=== PATIENT | male | born 1955 | race Caucasian/White ===

== ENCOUNTER 2022-01-24 14:57 | Outpatient (CLI) | payer MEDICARE, SELFPAY ==
--- OUTSIDE RECORDS SUMMARY | 2022-01-24 14:58 | XMS_ITS | Encounter Summary ---
:1955 Author Organization [facility] Address [address] [facility] [place] [address] Care Team Providers Name Role Phone Marcelo Smith Primary Care Provider Reason for Visit Reason Comments Pain possible tailor's bunion Encounter Details Date Type Department Care Team Description 02/19/2018 Office Visit [facility] [place], Bone spur of left Clinic [place] Lyle[place]ICIA foot (Primary Dx) [address] [address] [place], [place] [phone] [id number] (Wo rk) Social History Tobacco Use Types Packs/Day Years Used Date Smoking Tobacco: Never Smokeless Tobacco: Never Tobacco Cessation: Counseling Given: No Sex Assigned at Date Recorded Not on file documented as of this encounter Last Filed Vital Signs Vital Sign Reading Time Taken Comments Blood Pressure 116/70 02/19/2018 8:15 AM PULPWOOD CUTTER Pulse - - Temperature - - Respiratory Rate - - Oxygen Saturation - - Inhaled Oxygen Concentration - - Weight 86.6 kg (191 lb) 02/19/2018 8:15 AM PULPWOOD CUTTER Height 165.1 cm (5' 5) 02/19/2018 8:15 AM PULPWOOD CUTTER Body Mass Index 31.78 02/19/2018 8:15 AM PULPWOOD CUTTER documented in this encounter Patient Instructions Patient InstructionsValerio Davis - 02/19/2018 8:15 AM CST Images from the original note were not included. Thank you for choosing [facility]! DR. DEL C[facility]S [facility]IN[facility] LOCATIONS: THURSDAY - Thursday - [employer] [address] [facility] [address] [place] [address] [place], [place] [id number] THURSDAY AM - [place] THURSDAY PM - [facility] [address] [place] [address] [place], [place] [id number] THURSDAY AM - [place] SET UP SURGERY: [phone] [address] APPOINTMENTS: [phone] [place] [address] BILLING QUESTIONS: [phone] FAX NUMBER: [phone] Follow Up: as needed ENGLISH THERAPY Many aches and pains throughout the foot and ankle can be helped with many simple treatments. This is usually described as ENGLISH Therapy. P - Protection - often times, inflammation/pain in the lower extremity is not able to improve simplybecause the areas involved are never allowed to rest. Every step we take can bother the problematic area. Protecting those areas is an important step in the healing process. This may involve a walking cast boot, a special insert/orthotic device, an ankle brace, or simply avoiding barefoot walking. R - Rest - in addition to protecting the foot/ankle, resting is an important, but often times difficult, treatment option. Getting off your feet when they bother you, and specifically avoiding activities that cause pain/discomfort, are very beneficial to prevent, and treat, foot/ankle pain. I - Ice - icing regularly can help to decrease inflammation and swelling in the foot, thus decreasing pain. Using an ice pack or a bag of frozen veggies works very well. Ice for 20 minutes multiple times per day as needed. Do not place the ice directly on the skin as this can cause tissue damage. C - Compression - using a compression wrap or an CANDELARIO wrap can help to decrease swelling, which can help to decrease pain. Wearing the wraps is generally not needed at night, but they should be worn on a regular basis when you are going to be on your feet for prolonged periods as gravity tends to pull fluids down to your feet/ankles. E - Elevation - elevating your lower extremities multiple times daily for 15-20 minutes can help to decrease swelling, which works well in decreasing pain levels. NSAID/Tylenol - Anti-inflammatories like Aleve or ibuprofen, and/or a pain medication, such as Tylenol, can help to improve pain levels and get the issue resolved sooner rather than later. Anyone with liver issues should be careful with Tylenol, and anyone with high blood pressure or heart, stomach orkidney issues should be careful with anti-inflammatories. Please ask if you have questions about these medications, including dosage. TOE COVERS/CAPS FYI: Body Mass Index (BMI) Many things can cause foot and ankle problems. Foot structure, activity level, foot mechanics and injuries are common causes of pain. One very important issue that often goes unmentioned, is body weight. Extra weight can cause increased stress on muscles, ligaments, bones and tendons. Sometimes just afew extra pounds is all it takes to put one over her/his threshold. Without reducing that stress, itcan be difficult to alleviate pain. Some people are uncomfortable addressing this issue, but we feelit is important for you to think about it. As Foot & Ankle specialists, our job is addressing the lower extremity problem and possible causes. Regarding extra body weight, we encourage patients to discuss diet and weight management plans with their primary care doctors. It is this team approach that gives you the best opportunity for pain relief and getting you back on your feet. WOOD CUTTER documented in this encounter Progress Notes Lyle Del Cid DPM - 02/19/2018 8:15 AM CST Foot & Ankle Surgery February 19, 2018 CC: foot pain I was asked to see Fermin Granados regarding the chief complaint by: Adam Lincoln PA-C HPI: Pt is a 63 year old male who presents with above complaint. Left foot pain x years. Points tolateral lefto forefoot. Has been obthersome for years, now hurts to have shoes/socks on. Lower back pain, goes down into my legs. Did pool therapy. Also states he has hip issues, needs to have a replacement. Pain 7/10 in foot every day, worse with shoes and walking. He has tried bigger shoes without sufficient improvement. He had xrays at an outside facility that indicated a bone spur on the lateral L 5th metatarsal. Those images are not available today. He also indicates pain can go out to the 5th toe. ROS: Pos for CC. The patient denies current nausea, vomiting, chills, fevers, belly pain, calf pain,chest pain or SOB. Complete remainder of ROS is otherwise neg. VITALS: Vitals: 02/19/18 0815 BP: 116/70 Weight: 191 lb (86.6 kg) Height: 5' 5 (1.651 m) PMH: Lumbosacral spine pathology. SXHX: No contributory left foot surgery noted MEDS: Current Outpatient Prescriptions Medication ??? ACIPHEX 20 MG OR TBEC ??? amLODIPine (NORVASC) 10 MG tablet ??? aspirin 81 MG tablet ??? benazepril (LOTENSIN) 40 MG tablet ??? carvedilol (COREG) 25 MG tablet ??? clopidogrel (PLAVIX) 75 MG tablet ??? co-enzyme Q-10 100 MG CAPS capsule ??? famotidine (PEPCID) 10 MG tablet ??? hydrochlorothiazide (HYDRODIURIL) 25 MG tablet ??? metFORMIN (GLUCOPHAGE) 500 MG tablet ??? Multiple Vitamins-Minerals (MULTI FOR HER) TABS ??? traMADol (ULTRAM) 50 MG tablet ??? zolpidem (AMBIEN) 10 MG tablet No current facility-administered medications for this visit. 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 Social History Social History ??? Marital status: Single Spouse name: N/A ??? Number of children: N/A ??? Years of education: N/A Occupational History ??? Not on file. Social History Main Topics ??? Smoking status: Never Smoker ??? Smokeless tobacco: Never Used ??? Alcohol use Not on file ??? Drug use: Not on file ??? Sexual activity: Not on file Other Topics Concern ??? Not on file Social History Narrative ??? No narrative on file EXAMINATION: Gen: No apparent distress Neuro: A&Ox3, no deficits Psych: Answering questions appropriately for age and situation with normal affect Head: NCAT Eye: Visual scanning without deficit Ear: Response to auditory stimuli wnl Lung: Non-labored breathing on RA noted Abd: NTND per patient report Lymph: Neg for pitting/non-pitting edema BLE Vasc: Pulses palpable, CFT minimally delayed Neuro: Light touch sensation intact to all sensory nerve distributions without paresthesias Derm: Neg for nodules, lesions or ulcerations MSK: Left lower extremity - palpable painful bone spur lateral L 5th metatarsal shaft/neck. Mild adductovarus 5th hammertoe but no specific pain in the 5th toe today Calf: Neg for redness, swelling or tenderness Assessment: 63 year old male with painful bone spur 5th metatarsal left lower extremity Plan: Discussed etiologies, anatomy and options 1. Left 5th metatarsal bone spur -comfortable accommodative shoe gear, particularly with wider toe box -discussed donut vs horseshoe padding options, to alleviate pressure on the bone spur -RICE/NSAID vs tylenol prn -discussed Sural neuritis as possible cause of pain that progresses to the 5th toe -toe cap/cover handout for toe protection -briefly discussed excision of bone spur if padding and shoe gear changes are insufficient. -lower back issues discussed, how they can be related to lower extremity pain,but I suspect this is more from a localized MSK issue, the spur. Follow up: prn or sooner with acute issues Patient's medical history was reviewed today Body mass index is 31.78 kg/(m^2). Weight management plan: Patient was referred to their PCP to discuss a diet and exercise plan. Lyle Del Cid DPM FACFAS FACFAOM Podiatric Foot & Ankle Surgeon [facility] [phone] WOOD CUTTER documented in this encounter Plan of Treatment Not on filedocumented as of this encounter Visit Diagnoses Diagnosis Bone spur of left foot - Primary documented in this encounter Care Teams Functional Tester Relationship Specialty Start Date End Date Marcelo Smith PCP - General Family Practice 02/19/[address] [address] documented as of this encounter
--- OUTSIDE RECORDS SUMMARY | 2022-01-24 14:58 | XMS_ITS | Clinical Summary ---
:1955 Author Organization [place] Address [address] [facility] [place] [address] Care Team Providers Name Role Phone Marcelo Smith Primary Care Provider Allergies No known active allergies Medications Medication Sig Dispensed Refills Start Date End Date Status ACIPHEX 20 MG OR TBEC 1 tab po qd. 30 2 11/04/2001 Active aspirin 81 MG tablet 0 Active co-enzyme Q-10 100 MG CAPS Twice A Day 0 Active capsule clopidogrel (PLAVIX) 75 MG Daily 0 04/13/2017 Active tablet carvedilol (COREG) 25 MG Twice A Day 0 10/05/2017 Active tablet amLODIPine (NORVASC) 10 MG Daily 0 10/19/2017 Active tablet benazepril (LOTENSIN) 40 Daily 0 10/05/2017 Active MG tablet famotidine (PEPCID) 10 MG Twice A Day 0 Active tablet hydrochlorothiazide Daily 0 10/05/2017 Active (HYDRODIURIL) 25 MG tablet metFORMIN (GLUCOPHAGE) 500 Twice A Day 0 10/05/2017 Active MG tablet Multiple Vitamins-Minerals Daily 0 Active (MULTI FOR HER) TABS traMADol (ULTRAM) 50 MG Every 6 Hours 0 10/20/2017 Active tablet as needed zolpidem (AMBIEN) 10 MG Bedtime as 0 10/05/2017 Active tablet needed Active Problems No known active problems Social History Tobacco Use Types Packs/Day Years Used Date Smoking Tobacco: Never Smokeless Tobacco: Never Tobacco Cessation: Counseling Given: No Sex Assigned at Date Recorded Not on file Last Filed Vital Signs Vital Sign Reading Time Taken Comments Blood Pressure 116/70 02/19/2018 8:15 AM SECONDARY SPECIAL EDUCATION TEACHER Pulse - - Temperature - - Respiratory Rate - - Oxygen Saturation - - Inhaled Oxygen Concentration - - Weight 86.6 kg (191 lb) 02/19/2018 8:15 AM SECONDARY SPECIAL EDUCATION TEACHER Height 165.1 cm (5' 5) 02/19/2018 8:15 AM SECONDARY SPECIAL EDUCATION TEACHER Body Mass Index 31.78 02/19/2018 8:15 AM SECONDARY SPECIAL EDUCATION TEACHER Plan of Treatment Not on file Insurance Payer Benefit Plan / Subscriber ID Effective Phone Address T ype Group Dates [facility] [id number] 2017-Pres [phone] [address] O OPEN ACCESS ent [address] [place] [address] Care Teams Data Processing Systems Consultant Relationship Specialty Start Date End Date Marcelo Smith PCP - General Family Practice 02/19/[address] [address]
--- OUTSIDE RECORDS SUMMARY | 2022-01-24 14:58 | XMS_ITS | Encounter Summary ---
:1955 Author Organization [facility] Address [address] [facility] [place] [address] Care Team Providers Name Role Phone DoctorAjay MD Primary Care Provider Unavailable Reason for Visit Reason Comments Refill Request Encounter Details Date Type Department Care Team Description 02/28/2002 Refill [facility] Lawrence Olvera, Refill Request Gibran SEN [address] [place] [address]to [address] [place] [address] [place] [address] [phone] Social History Tobacco Use Types Packs/Day Years Used Date Smoking Tobacco: Never Assessed Sex Assigned at Date Recorded Not on file documented as of this encounter Miscellaneous Notes Telephone Encounter - 02/28/2002 11:[address] JUDGE >> FABIANO ROMERO Mon Feb 28, 2002 11:01 AM >> CALL RECEIVED. Contact: The chart has been requested. documented in this encounter Plan of Treatment Not on filedocumented as of this encounter Visit Diagnoses Not on filedocumented in this encounter Care Teams Falsework Builder Relationship Specialty Start Date End Date Ajay Christianson MD PCP - General 05/21/01 12/04/16 documented as of this encounter
--- OUTSIDE RECORDS SUMMARY | 2022-01-24 14:59 | XMS_ITS | Encounter Summary ---
:1955 Author Organization [facility] Address [address] [place] [address] Care Team Providers Name Role Phone Doctor, Ajay SEN Primary Care Provider Unavailable Reason for Visit Reason Comments Refill Request Encounter Details Date Type Department Care Team Description 12/08/2001 Refill [facility] Lawrence Olvera, Refill Request Gibran SEN [address] [place] Joreg Alberto [address] [place] [address] [place] [address] [phone] Social History Tobacco Use Types Packs/Day Years Used Date Smoking Tobacco: Never Assessed Sex Assigned at Date Recorded Not on file documented as of this encounter Miscellaneous Notes Telephone Encounter - 12/08/2001 11:59 PM CDT >> MING LOVELL Roseann Dec 09, 2001 12:25 PM Pharm advised-told to have rt call us with more info Ming Lovell RN >> MING LOVELL Wed Dec 08, 2001 11:26 AM >> CALL RECEIVED. Contact: The chart has been requested. documented in this encounter Plan of Treatment Not on filedocumented as of this encounter Visit Diagnoses Not on filedocumented in this encounter Care Teams Incident Response Coordinator Relationship Specialty Start Date End Date DoctorAjay MD PCP - General 05/21/01 12/04/16 documented as of this encounter
--- OUTSIDE RECORDS SUMMARY | 2022-01-24 14:59 | XMS_ITS | Clinical Summary ---
:1955 Author Organization [facility] [place] [address] Care Team Providers Name Role Phone Unknown, Doctor Primary Care Provider Unavailable Allergies No known active allergies Medications Medication Sig Dispensed Refills Start Date End Date Status zolpidem (AMBIEN) 10 mg Take 1 tablet 30 tablet 0 03/16/2017 Active tabletIndications: by mouth at Insomnia, idiopathic bedtime if needed for Sleep. Take least amount possible. carvedilol (COREG) 25 mg Take 1 tablet 180 tablet 1 03/16/2017 Active tabletIndications: by mouth 2 Hypertension times daily with meals. For blood pressure and heart. Benazepril HCl 40 mg Take 1 tablet 90 tablet 1 03/16/2017 Active tabletIndications: by mouth once Hypertension daily. For blood pressure. clopidogrel (PLAVIX) 75 mg Take 1 tablet 90 tablet 1 7 Active tabletIndications: Heart by mouth once disease daily. metFORMIN (GLUCOPHAGE) 500 Take 1 tablet 180 tablet 1 03/16/20 17 Active mg tabletIndications: by mouth 2 Controlled type 2 diabetes times daily mellitus without with meals. complication, with For Diabetes. long-term current use of insulin (HC) atorvastatin (LIPITOR) 20 Take 1 tablet 90 tablet 1 03/16/2017 Active mg tabletIndications: by mouth once Hypercholesterolemia daily. For Cholesterol. aspirin (ASPIR-81) 81 mg Take 1 tablet 0 03/16/2017 Active enteric coated tablet by mouth once daily with a meal. ascorbic acid, vitamin C, Take 1 tablet 0 03/16/2017 Active (VITAMIN C) 1,000 mg by mouth once tablet daily. famotidine (PEPCID) 10 mg Take 1 tablet 0 03/16/2017 Active tablet by mouth 2 times daily. coenzyme q10 (CO Q-10) 100 Take 1 capsule 0 03/16/20 17 Active mg cap by mouth 2 times daily. traMADol (ULTRAM) 50 mg Take 1 tablet 30 tablet 0 04/13/2017 Active tabletIndications: Chronic by mouth every hip pain, left 6 hours if needed for Pain. For pain, use least amount possible. hydroCHLOROthiazide (HCTZ) Take 1 tablet 30 tablet 0 8 Active 25 mg tabletIndications: by mouth once Hypertension daily. amLODIPine (NORVASC) 10 mg Daily 0 10/19/2017 Active tablet Active Problems Problem Noted Date Elevated liver enzymes 03/17/2017 Overview: March 2017: ALT 57. Controlled type 2 diabetes mellitus without complicati on, with long-term 03/16/2017 current use of insulin Overview: Diagnosis 2002 approximately. Insomnia, idiopathic 03/16/2017 Overview: Taking ambien from [place] as of Mar: Chronic hip pain, left 03/16/2017 Overview: Taking Tramadol (Ultram) from [place] Sarahi r as of March 2017: May 2017: Fluoroscopic guided left hip j oint injection by Dr. Camara. Hypertension Hypercholesterolemia Heart disease Overview: 2001 2 Coronary stents. April 2017: Consult with Dr. Wilson, made hypertension med adjustment suggestions if BP not improved. Immunizations Name Administration Dates Next Due Influenza, IIV3 (Age >=3 years) 12/31/2016, 01/19/2004, 01/05 Pneumococcal Poly,23-Valent (Pneumovax) 01/30/2003 Family History Medical History Relation Name Comments Cancer Father Unknown primary, maybe lung Heart Disease Mother Relation Name Status Comments Father Mother Social History Tobacco Use Types Packs/Day Years Used Date Former Smoker Cigarettes 2 Quit: 12/11/19 01 Smokeless Tobacco: Never Used Alcohol Use Standard Drinks/Week Comments No 0 (1 standard drink = 0.6 oz pure alcoho l) Sex Assigned at Date Recorded Not on file Obstetrics History Last Filed Vital Signs Vital Sign Reading Time Taken Comments Blood Pressure 142/80 03/18/2017 1:22 PM SUBSTATION MAINTENANCE TECHNICIAN Pulse 72 03/18/2017 1:22 PM SUBSTATION MAINTENANCE TECHNICIAN Temperature - - Respiratory Rate - - Oxygen Saturation - - Inhaled Oxygen Concentration - - Weight 95.4 kg (210 lb 4.8 oz) 03/16/2017 10:23 AM SUBSTATION MAINTENANCE TECHNICIAN Height 166.4 cm (5' 5.5) 03/16/2017 10:23 AM SUBSTATION MAINTENANCE TECHNICIAN Body Mass Index 34.46 03/16/2017 10:23 AM SUBSTATION MAINTENANCE TECHNICIAN Plan of Treatment Health Maintenance Due Date Last Done Comments COVID-19 vaccine series (#1) 1955 Tdap 01/03/1967 Hepatitis C screening for age 18-79 01/03/1974 Tetanus booster 1976 Colonoscopy through age 75 01/03/2001 Pneumococcal series for age 65+ (2 - 01/31/2004 01/30/2003 PCV) Zoster (shingles) series for age 50+ 01/03/2006 (1 of 2) BMI (ht and wt on same day) for age 1203/16/2018 03/16/2017 18+ Depression screening for age 12+ 03/16/2018 03/16/2017 Influenza for age 65+ 12/05/2021 12/31/2016, 01/19/2004, 01/30/2003 Lipids for age 45-75 03/16/2022 03/16/2017 Results Not on filefrom Last 3 Months Insurance Payer Benefit Plan / Subscriber ID Effective Dates Phone Addre ss Type Group MARY JO CAMARGO [place] [id number] 2017-Present [address] [place] [address] Care Teams Nougat Candy Maker Helper Relationship Specialty Start Date End Date Unknown, Doctor PCP - General 07/21/17 .
--- OUTSIDE RECORDS SUMMARY | 2022-01-24 14:59 | XMS_ITS ---
:1955 Author Care Team Providers Name Role Phone Kira Coates Primary Care Provider Unavailable Allergies Code Code System Name Reaction Severity Status Onset NKDA ? Medications Name Status Start Date Stop Date ? ? amlodipine 10 mg tablet Active ? Not avai lable Aspir-81 Active ? Not available atorvastatin 20 mg tablet Active ? Not av ailable azithromycin 250 mg tablet Completed ? 11/08 benazepril 20 mg tablet Completed ? 11/09/19 19 benazepril 40 mg tablet Active ? Not avai lable carvedilol 25 mg tablet Active ? Not avai lable clopidogrel 75 mg tablet Active ? Not shasta ilable hydrochlorothiazide 25 mg tablet Active ? Not available metformin 500 mg tablet Active ? Not avai lable prednisone 20 mg tablet Completed ? 11/09/19 19 tramadol 50 mg tablet Active ? Not availa ble Ventolin HFA 90 mcg/actuation aerosol inhaler Active ? Not available zolpidem 10 mg tablet Completed ? 11/08/2018 zolpidem 5 mg tablet Active ? Not availab le Problems Name Status Onset Date Source ? Type 2 Diabetes Mellitus Active 11/08/2018 ? Essential Hypertension Active 11/08/2018 ? Family History of Malignant Melanoma Active 11/08/2018 ? History of Squamous Cell Carcinoma Active 11/08/2018 ? Procedures Notes: Left Hip replacement Appendix Right rotator cuff Hernia Results Lab Results None recorded. Past Encounters None recorded. Social History Tobacco Smoking Status Never Smoker Vaccine List None recorded. Plan of Care Reminders Provider Appointments None recorded. ? ? Lab None recorded. ? ? Referral None recorded. ? ? Procedures None recorded. ? ? Surgeries None recorded. ? ? Imaging None recorded. ? ? Vitals None recorded.
--- OUTSIDE RECORDS SUMMARY | 2022-01-24 14:59 | XMS_ITS | Encounter Summary ---
:1955 Author Organization [place] Address [address] [facility] [place] [address] Care Team Providers Name Role Phone Doctor, Ajay SEN Primary Care Provider Unavailable Reason for Visit Reason Comments Dizziness Encounter Details Date Type Department Care Team Description 10/05/2001 Telephone [facility] Lawrence Olvera, Dizziness Gibran SEN [address] [place] Jorge Alberto [address] [place] [address] [place] [address] [phone] Social History Tobacco Use Types Packs/Day Years Used Date Smoking Tobacco: Never Assessed Sex Assigned at Date Recorded Not on file documented as of this encounter Miscellaneous Notes Telephone Encounter - 10/05/2001 11:59 PM CDT >> GABINO Cruz Oct 05, 2001 12:28 PM >> CALL RECEIVED. Contact: Pt calling c/o dizziness, and lightheadedness since this am. BP 160/104 at [facility] today. (Hx of [place]). Pt was advised to have someone take him to [facility] ER. documented in this encounter Plan of Treatment Not on filedocumented as of this encounter Visit Diagnoses Not on filedocumented in this encounter Care Teams Supervisor Denture Department Relationship Specialty Start Date End Date Doctor, MD Ajay PCP - General 05/21/01 12/04/16 documented as of this encounter
--- OUTSIDE RECORDS SUMMARY | 2022-01-24 14:59 | XMS_ITS | Encounter Summary ---
:1955 Author Organization [facility] Address [address] [facility] [place] [address] Care Team Providers Name Role Phone DoctorAjay MD Primary Care Provider Unavailable Reason for Visit Reason Comments Refill Request Encounter Details Date Type Department Care Team Description 11/04/2001 Refill [facility] Lawrence Olvera, Refill Request Gibran SEN [address] [place] Jorge Alberto [address] [place] [address] [place] [address] [phone] Social History Tobacco Use Types Packs/Day Years Used Date Smoking Tobacco: Never Assessed Sex Assigned at Date Recorded Not on file documented as of this encounter Miscellaneous Notes Telephone Encounter - 11/04/2001 11:59 PM CDT >> GABINO Whitfield Nov 04, 2001 11:24 AM >> CALL RECEIVED. Contact: The chart has been requested. documented in this encounter Plan of Treatment Not on filedocumented as of this encounter Visit Diagnoses Not on filedocumented in this encounter Care Teams Balance Weigher Relationship Specialty Start Date End Date Ajay Christianson MD PCP - General 05/21/01 12/04/16 documented as of this encounter
[2022-01-24 21:51] LABS: Chloride* 104 mmol/L (96-114)
[2022-01-24 21:52] LABS: Potassium* 3.5 mmol/L (3.6-5.1); Sodium* 140 mmol/L (135-149)
[2022-01-24 21:54] LABS: Cholesterol* 130 mg/dL (90-199); Creatinine* 0.9 mg/dL (0.5-1.5); Estimated Glomerular Filt Rate 94 ml/min
[2022-01-24 21:55] LABS: Blood Urea Nitrogen* 22 mg/dL (7-30); Calcium* 9.6 mg/dL (8.4-10.6); Carbon Dioxide* 27 mmol/L (20-32); Glucose* 99 mg/dL (60-115); Triglycerides* 120 mg/dL (40-149)
[2022-01-24 21:56] LABS: Creatinine Urine 80.9 mg/dL; HDL Cholesterol* 48 mg/dL (>=40); LDL Cholesterol Calculated 58 mg/dL (<100)
[2022-01-24 21:58] LABS: Microalbumin Creatinine Ratio 20 mg/g (0-30); Microalbumin Urine 2 mg/dL
== END 2022-01-24 14:58 | disposition home or self-care (01) ==
PROVIDERS: PCP Family Medicine; Visit Provider Family Medicine
DX: E11.9 Type 2 diabetes mellitus without complications (principal); E78.5 Hyperlipidemia, unspecified; I10 Essential (primary) hypertension; E78.1 Pure hyperglyceridemia; R19.7 Diarrhea, unspecified; M19.90 Unspecified osteoarthritis, unspecified site
CPT/HCPCS: 36415; 80048; 80061; 82043; 82570; 83036

== ENCOUNTER 2022-10-30 10:00 | Outpatient (CLI) | payer MEDICARE, SELFPAY | END 2022-10-30 10:01 | disposition home or self-care (01) | PROVIDERS: PCP Family Medicine; Visit Provider Family Medicine | DX: Z79.899 Other long term (current) drug therapy (principal); R73.03 Prediabetes; E11.9 Type 2 diabetes mellitus without complications; E78.1 Pure hyperglyceridemia; I10 Essential (primary) hypertension | CPT/HCPCS: 82607 ==

== ENCOUNTER 2023-01-23 12:30 | Outpatient (CLI) | payer MEDICARE, SELFPAY | END 2023-01-23 12:31 | disposition home or self-care (01) | PROVIDERS: PCP Family Medicine; Visit Provider Family Medicine | DX: E11.9 Type 2 diabetes mellitus without complications (principal); Z12.5 Encounter for screening for malignant neoplasm of prostate; Z11.59 Encounter for screening for other viral diseases | CPT/HCPCS: 80053; 80061; 82043; 82570; 82607; 84153; 84156; 86803 ==

== ENCOUNTER 2024-02-18 09:05 | Outpatient (CLI) | payer MEDICARE, SELFPAY ==
--- OUTSIDE RECORDS SUMMARY | 2024-02-22 15:30 | XMS_ITS | Clinical Summary ---
Author Organization [facility] Address [address] [facility] [place] [address] Care Team Providers Care Wireless Team Member Name Role Phone Marcelo Smith Primary Care Provider + [phone] Allergies No known active allergies Medications aspirin 81 MG tablet Take 81 mg by mouth daily. Active amLODIPine (NORVASC) 10 MG tablet Daily 8 Active benazepril (LOTENSIN) 40 MG tablet Take 40 mg by mouth daily. 8 Active famotidine (PEPCID) 10 MG tablet Twice A Day Active Multiple Vitamins-Minera ls (MULTI FOR HER) TABS Take 1 tablet by mouth every morning. Active traMADol (ULTRAM) 50 MG tablet Take 50 mg by mouth every 6 hours as needed. 8 Active traZODone (DESYREL) 100 MG tablet Take 100-200 mg by mouth nightly as needed 2 Active hydrochlorothia zide (HYDRODIURIL) 25 MG tabletIndicatio ns:Hypertension , unspecified type Take 1 tablet (25 mg) by mouth daily 90 tablet 3 2 Active carvedilol (COREG) 25 MG tabletIndicatio ns:Hypertension , unspecified type Take 1.5 tablets (37.5 mg) by mouth 2 times daily (with meals) 270 tablet 3 2 Active atorvastatin (LIPITOR) 10 MG tablet Take 10 mg by mouth at bedtime. Active omeprazole (PRILOSEC) [address] capsule Take 20 mg by mouth 2 times daily. Active ACIPHEX 20 MG OR TBEC 1 tab po qd. 30 2 2 02/18/20 24 Discontinued (Med Rec(No AVS / No eCancel)) co-enzyme Q-10 100 MG CAPS capsule Twice A Day 02/18/20 24 Discontinued (Med Rec(No AVS / No eCancel)) clopidogrel (PLAVIX) 75 MG tablet Daily 8 03/11/20 22 Discontinued (Therapy completed (No AVS)) metFORMIN (GLUCOPHAGE) 500 MG tablet daily 8 02/18/20 24 Discontinued (Med Rec(No AVS / No eCancel)) zolpidem (AMBIEN) 10 MG tablet Bedtime as needed 8 02/18/20 24 Discontinued (Med Rec(No AVS / No eCancel)) atorvastatin (LIPITOR) 40 MG tabletIndicatio ns:Hypercholest erolemia Take 1 tablet (40 mg) by mouth daily 90 tablet 3 2 02/18/20 24 Discontinued (Med Rec(No AVS / No eCancel)) Active Problems Problem Noted Date Diagnosed Date Hypokalemia 02/18/2024 NSTEMI (non-ST elevated myocardial infarction) 1 04/19/2023 Encounters Date Type Department Care Team Description 02/18/2024 2:26 PM EXPERIENTIAL THERAPIST - 02/19/2024 3:19 PM [facility] Emergency Dept [address] [place] [address] Dia Reilly MD Parens, Karl R, MD NSTEMI (non-ST elevated myocardial infarction) (H); Hypokalemia Discharge Disposition: Another Health Care Institution with Planned Hospital IP Readmission 02/18/2024 Travel from Last 3 Months Family History Medical History Relation Comments Heart Surgery Mother Relation Status Comments Mother Social History Tobacco Use Types Packs/Day Years Used Date Smoking Tobacco: Never Smokeless Tobacco: Never Tobacco Cessation:Counseling Given: Not Answered Alcohol Use Standard Drinks/Week Comments Not Currently 0 (1 standard drink = 0.6 oz pur e alcohol) occ 1-2 drinks per year Adolescent Education Answer Date Record ed Getting School Help Needed Not on file 01/19 Sex and Gender Information Value Date Recorded Sex Assigned at Not on file Legal Sex Male 3:40 AM EXPERIENTIAL THERAPIST Gender Identity Not on file Sexual Orientation Not on file Last Filed Vital Signs Vital Sign Reading Time Taken Comments Blood Pressure 161/95 02/19/2024 10:09 AM EXPERIENTIAL THERAPIST Pulse 94 02/19/2024 10:09 AM EXPERIENTIAL THERAPIST Temperature 36.8 C (98.2 F) 02/18/2024 2:20 PM EXPERIENTIAL THERAPIST Respiratory Rate 16 02/19/2024 10:09 AM EXPERIENTIAL THERAPIST Oxygen Saturation 98% 02/19/2024 10:09 AM EXPERIENTIAL THERAPIST Inhaled Oxygen Concentration - - Weight 76.3 kg (168 lb 3.4 oz) 02/18/2024 2:20 P M EXPERIENTIAL THERAPIST Height 166.4 cm (5' 5.5) 02/18/2024 2:20 PM EXPERIENTIAL THERAPIST Body Mass Index 27.57 02/18/2024 2:20 PM EXPERIENTIAL THERAPIST Plan of Treatment Health Maintenance Due Date Last Done Comments ADVANCE CARE PLANNING 1955 ANNUAL REVIEW OF HM ORDERS 1955 CT COLONOGRAPHY 1955 FIT 1955 FLEX SIG 1955 sDNA (Cologuard) 1955 COLONOSCOPY 01/03/1966 COLORECTAL CANCER SCREENING 01/03/1966 HEPATITIS C SCREENING 01/03/1974 RSV VACCINE (1 - Risk 60-74 years 1-dose series) 2016 ZOSTER IMMUNIZATION (2 of 2) 03/24/2019 01/27/2019 FALL RISK ASSESSMENT 01/03/2021 MEDICARE ANNUAL WELLNESS VISIT 01/03/2021 Pneumococcal Vaccine: 65+ Years (2 of 2 - PCV) 01/31/2023 01/31/2022, 01/30/2003 LIPID 02/06/2023 02/06/2022, 01/24/2022 PHQ-2 (once per calendar year) 2023 COVID-19 Vaccine ( - season) 2023 INFLUENZA VACCINE (#1) 2023 , 01/31/2022, 01/27/2019, Additional history exists BMP 02/17/2025 02/18/2024, 02/06/2022 GLUCOSE 02/17/2027 02/18/2024, 11/06/2021, 01/24/2022 DTAP/TDAP/TD IMMUNIZATION (2 - Td or Tdap) 05/04/2027 05/04/2017 HPV IMMUNIZATION Aged Out No longer e ligible based on patient's age to complete this topic MENINGITIS IMMUNIZATION Aged Out No l onger eligible based on patient's age to complete this topic RSV MONOCLONAL ANTIBODY Aged Out No l onger eligible based on patient's age to complete this topic Procedures Procedure Name Priority Date/Time Associated Diagnosis Comments ECHO COMPLETE Routine 02/19/2024 11:17 AM EXPERIENTIAL THERAPIST HEPARIN UNFRACTIONATED ANTI XA LEVEL STAT 02/19/2024 9:52 AM EXPERIENTIAL THERAPIST POTASSIUM STAT 02/19/2024 9:52 AM EXPERIENTIAL THERAPIST PHOSPHORUS STAT 02/19/2024 9:52 AM EXPERIENTIAL THERAPIST NM MPI WITH LEXISCAN Routine 02/19/2024 9:39 AM EXPERIENTIAL THERAPIST HEPARIN UNFRACTIONATED ANTI XA LEVEL STAT 02/19/2024 2:55 AM EXPERIENTIAL THERAPIST MAGNESIUM STAT 02/19/2024 2:55 AM EXPERIENTIAL THERAPIST POTASSIUM STAT 02/19/2024 2:55 AM EXPERIENTIAL THERAPIST PHOSPHORUS STAT 02/19/2024 2:55 AM EXPERIENTIAL THERAPIST CBC WITH PLATELETS STAT 02/19/2024 12 :22 AM EXPERIENTIAL THERAPIST HEPATIC FUNCTION PANEL Add-On 5:47 PM EXPERIENTIAL THERAPIST LIPASE Add-On 02/18/2024 5:47 PM EXPERIENTIAL THERAPIST TROPONIN T, HIGH SENSITIVITY STAT 02/18/2024 5:47 PM EXPERIENTIAL THERAPIST XR CHEST 2 VIEWS STAT 02/18/2024 3:03 PM EXPERIENTIAL THERAPIST CBC WITH PLATELETS & DIFFERENTIAL STAT 02/18/2024 2:32 PM EXPERIENTIAL THERAPIST EXTRA RED TOP TUBE STAT 02/18/2024 2: 32 PM EXPERIENTIAL THERAPIST EXTRA BLUE TOP TUBE STAT 02/18/2024 2 :32 PM EXPERIENTIAL THERAPIST CBC WITH PLATELETS AND DIFFERENTIAL STAT 02/18/2024 2:32 PM EXPERIENTIAL THERAPIST EXTRA TUBE STAT 02/18/2024 2:32 PM EXPERIENTIAL THERAPIST TROPONIN T, HIGH SENSITIVITY STAT 02/18/2024 2:32 PM EXPERIENTIAL THERAPIST BASIC METABOLIC PANEL STAT 02/18/2024 2:32 PM EXPERIENTIAL THERAPIST EKG 12-LEAD, TRACING ONLY STAT 02/18/2024 2:25 PM EXPERIENTIAL THERAPIST LIPID PROFILE Routine 02/06/2022 11:30 AM CDT Hypercholesterolem ia from Last 3 Months or Most Recently Relevant to Health Maintenance Results * ECHO COMPLETE (02/19/2024 11:17 AM EXPERIENTIAL THERAPIST) LVEF 60% CARDIOLOGY RESULTS Anatomical Region Laterality Modality Echocardiography 02/19/2024 11:4 4 AM EXPERIENTIAL THERAPIST Narrative 02/19/2024 11:35 AM EXPERIENTIAL THERAPIST [id number]^MARIA EUGENIA^SEKOU^[facility] Echocardiography Laboratory [address] [place] [id number] Name: MOHAMUD GRANADOS : 1955 Study Date: 02/19/2024 11:44 AM Age: 69 yrs Gender: Male Patient Location: [facility] Reason For Study: Chest Pain, Chest Pressure, Chest Tightness Ordering Physician: SEKOU ELIZALDE Referring Physician: Marcelo Smith Performed By: China Maldonado RDCS BSA: 1.8 m2 Height: 65 in Weight: 168 lb BP: 161/95 mmHg Procedure Complete Portable Echo Adult. Interpretation Summary 1. The left ventricle is normal in structure, function and size. The visual ejection fraction is estimated at 60%. 2. The right ventricle is normal in structure, function and size. 3. No valve disease. No changes from stress echo 02/2022. Left Ventricle The left ventricle is normal in structure, function and size. There is normal left ventricular wall thickness. The visual ejection fraction is estimated at 60%. Left ventricular diastolic function is normal. Normal left ventricular wall motion. Right Ventricle The right ventricle is normal in structure, function and size. Atria Normal left atrial size. Right atrial size is normal. There is no atrial shunt seen. Mitral Valve There is mild mitral annular calcification. There is no mitral regurgitation noted. Tricuspid Valve No tricuspid regurgitation. Aortic Valve The aortic valve is normal in structure and function. Pulmonic Valve The pulmonic valve is normal in structure and function. Vessels Normal ascending, transverse (arch), and descending aorta. The inferior vena cava was normal in size with preserved respiratory variability. Pericardium There is no pericardial effusion. Rhythm Sinus rhythm was noted. MMode/2D Measurements & Calculations IVSd: 1.1 cm LVIDd: 3.6 cm LVIDs: 2.9 cm LVPWd: 1.1 cm FS: 17.2 % LV mass(C)d: 120.7 grams LV mass(C)dI: 65.7 grams/m2 Ao root diam: 3.5 cm asc Aorta Diam: 3.7 cm Ao root diam index Ht(cm/m): 2.1 Ao root diam index BSA (cm/m2): 1.9 Asc Ao diam index BSA (cm/m2): 2.0 Asc Ao diam index Ht(cm/m): 2.2 LA Volume (BP): 44.2 ml LA Volume Index (BP): 24.0 ml/m2 RV Base: 3.6 cm RWT: 0.63 TAPSE: 2.9 cm Doppler Measurements & Calculations MV E max nicolas: 73.9 cm/sec MV A max nicolas: 144.0 cm/sec MV E/A: 0.51 MV max P.2 mmHg MV mean P.1 mmHg MV V2 VTI: 30.7 cm MV dec time: 0.40 sec PA acc time: 0.11 sec E/E' av.6 Lateral E/e': 6.2 Medial E/e': 9.0 RV S Nicolas: 11.5 cm/sec Report approved by: Kira Lam 02/19/2024 11:35 AM Procedure Note Trenton Arevalo MD - 02/19/2024 [id number]^MARIA EUGENIA^SEKOU^[facility] Echocardiography Laboratory [address] [place] [address] Name: MOHAMUD GRANADOS : 1955 Study Date: 02/19/2024 11:44 AM Age: 69 yrs Gender: Male Patient Location: [facility] Reason For Study: Chest Pain, Chest Pressure, Chest Tightness Ordering Physician: SEKOU ELIZALDE Referring Physician: Marcelo Smith Performed By: China Maldonado RDCS BSA: 1.8 m2 Height: 65 in Weight: 168 lb BP: 161/95 mmHg Procedure Complete Portable Echo Adult. Interpretation Summary 1. The left ventricle is normal in structure, function and size. Thevisual ejection fraction is estimated at 60%. 2. The right ventricle is normal in structure, function and size. 3. No valve disease. No changes from stress echo 02/2022. Left Ventricle The left ventricle is normal in structure, function and size. There isnormal left ventricular wall thickness. The visual ejection fraction is estimatedat 60%. Left ventricular diastolic function is normal. Normal leftventricular wall motion. Right Ventricle The right ventricle is normal in structure, function and size. Atria Normal left atrial size. Right atrial size is normal. There is no atrialshunt seen. Mitral Valve There is mild mitral annular calcification. There is no mitralregurgitation noted. Tricuspid Valve No tricuspid regurgitation. Aortic Valve The aortic valve is normal in structure and function. Pulmonic Valve The pulmonic valve is normal in structure and function. Vessels Normal ascending, transverse (arch), and descending aorta. The inferiorvena cava was normal in size with preserved respiratory variability. Pericardium There is no pericardial effusion. Rhythm Sinus rhythm was noted. MMode/2D Measurements & Calculations IVSd: 1.1 cm LVIDd: 3.6 cm LVIDs: 2.9 cm LVPWd: 1.1 cm FS: 17.2 % LV mass(C)d: 120.7 grams LV mass(C)dI: 65.7 grams/m2 Ao root diam: 3.5 cm asc Aorta Diam: 3.7 cm Ao root diam index Ht(cm/m): 2.1 Ao root diam index BSA (cm/m2): 1.9 Asc Ao diam index BSA (cm/m2): 2.0 Asc Ao diam index Ht(cm/m): 2.2 LA Volume (BP): 44.2 ml LA Volume Index (BP): 24.0 ml/m2 RV Base: 3.6 cm RWT: 0.63 TAPSE: 2.9 cm Doppler Measurements & Calculations MV E max nicolas: 73.9 cm/sec MV A max nicolas: 144.0 cm/sec MV E/A: 0.51 MV max P.2 mmHg MV mean P.1 mmHg MV V2 VTI: 30.7 cm MV dec time: 0.40 sec PA acc time: 0.11 sec E/E' av.6 Lateral E/e': 6.2 Medial E/e': 9.0 RV S Nicolas: 11.5 cm/sec Report approved by: Kira Lam 02/19/2024 11:35 AM Sekou Elizalde MD CV ECHO ORDERABLES Edited Resul t - Final * Heparin Unfractionated Anti Xa Level (02/19/2024 9:52 AM EXPERIENTIAL THERAPIST) Only the most recent of2 resultswithin the time period is included. Anti Xa Unfractionated Heparin 0.33 For Reference Range, See Comment IU/mL 02/19/2024 10:16 AM EXPERIENTIAL THERAPIST LABORATORY Blood STRUCTURE OF RIGHT HAND / Unknown Venipuncture / Unknown 02/19/2024 9:52 AM EXPERIENTIAL THERAPIST 02/19/2024 10:04 AM EXPERIENTIAL THERAPIST Narrative LABORATORY - 02/19/2024 10:16 AM EXPERIENTIAL THERAPIST Therapeutic Range: UFH: 0.25-0.50 IU/mL for low intensity dosing, 0.30-0.70 IU/mL for high intensity dosing DVT and PE. This test is not validated for other direct factor X inhibitors (e.g. rivaroxaban, apixaban, edoxaban, betrixaban, fondaparinux) and should not be used for monitoring of other medications. Sekou Elizalde MD LAB - BLOOD ORDERABLES Final Re sult LABORATORY [facility] Acute Care Lab [address] [facility] Lab (1st floor, no room number) [place] [address] * Potassium (02/19/2024 9:52 AM EXPERIENTIAL THERAPIST) Only the most recent of2 resultswithin the time period is included. Potassium 3.8 3.4 - 5.3 mmol/L 02/19/2024 10:23 AM EXPERIENTIAL THERAPIST LABORATORY Blood STRUCTURE OF RIGHT HAND / Unknown Venipuncture / Unknown 02/19/2024 9:52 AM EXPERIENTIAL THERAPIST 02/19/2024 10:04 AM EXPERIENTIAL THERAPIST Sekou Elizalde MD LAB - BLOOD ORDERABLES Final Re sult Performing Organization Address City/[facility]/ZIP Co de Phone Number [facility] Acute Care Lab [address] Lab (1st floor, no room number) [place] [phone] [place] [address] * (ABNORMAL) Phosphorus (02/19/2024 9:52 AM EXPERIENTIAL THERAPIST) Only the most recent of2 resultswithin the time period is included. Phosphorus 1.7(L) 2.5 - 4.5 mg/dL 02/19/2024 10:23 AM EXPERIENTIAL THERAPIST LABORATORY Blood STRUCTURE OF RIGHT HAND / Unknown Venipuncture / Unknown 02/19/2024 9:52 AM EXPERIENTIAL THERAPIST 02/19/2024 10:04 AM EXPERIENTIAL THERAPIST us Sekou Elizalde MD LAB - BLOOD ORDERABLES Final Re sult Performing Organization Address [facility]/ZIP Co de Phone Number [facility] [address] Lab (1st floor, no room number) [place] [phone] * NM Lexiscan stress test (nuc card) (02/19/2024 9:39 AM EXPERIENTIAL THERAPIST) Target HR 152 RADIANT Baseline Systolic BP 124 RADIANT Baseline Diastolic BP 86 RADIANT Last Stress Systolic BP 167 RADIANT Last Stress Diastolic BP 98 RADIANT Baseline HR 88 bpm RADIANT Max HR 101 RADIANT Max Predicted HR 66 % RADIANT Rate Pressure Product 16,867.0 RADIANT Anatomical Region Laterality Modality Chest Nuclear Medicine Narrative 02/19/2024 11:45 AM EXPERIENTIAL THERAPIST The nuclear stress test is abnormal. There is a medium sized area of nontransmural infarction in the entire inferior and inferoseptal segment(s) of the left ventricle. No evidence of ischemia. Left ventricular function is normal. EF greater than 70% with inferiro hypokinesis. There is no prior study for comparison. Stress Findings A pharmacologic stress test was performed following a supine Lexiscan protocol using 0.4 mg of intravenous regadenoson administered over 10 seconds under the supervision of Dr. Trenton Arevalo. The patient reported light-headedness during the stress test. ECG Baseline electrocardiogram demonstrates sinus rhythm. Possible inferior q wave. The stress electrocardiogram is negative for inducible ischemic EKG changes. Isotope Administration Nuclear imaging was accomplished using a one day protocol with 33 mCi of technetium sestamibi injected at the completion of Lexiscan infusion on 02/19/2024 and 11 mCi of technetium sestamibi at rest on 02/19/2024. Nuclear Study Quality Final image quality is satisfactory. Perfusion Defect The nuclear stress test is abnormal. There is a medium sized area of nontransmural infarction in the entire inferior and inferoseptal segment(s) of the left ventricle. Left ventricular function is normal. TID is absent. Nuclear Prior Study There is no prior study for comparison. Perfusion Scoring Stress Summed Score: 15 Percent Normal: 22.06% Severe count reduction in the following segments: basal inferoseptal, basal inferior, mid inferoseptal, mid inferior and apical inferior. All other segments are normal. Perfusion Scoring Resting Summed Score: 15 Percent Normal: 22.06% Severe count reduction in the following segments: basal inferoseptal, basal inferior, mid inferoseptal, mid inferior and apical inferior. All other segments are normal. Perfusion Scores: SRS Score: 15 Percentage Abnormal: 22.06% Perfusion Scores: SSS Score: 15 Percentage Abnormal: 22.06% Perfusion Scores: SDS Score: 0 Percentage Abnormal: 0.00% Wall Motion Score Index: 1.18 The following segments are hypokinetic: basal inferoseptal, basal inferior and mid inferior. All other segments are normal. Sekou Elizalde MD [facility] [place] ORDERABLES Final Result * Magnesium (02/19/2024 2:55 AM EXPERIENTIAL THERAPIST) Magnesium 1.9 1.7 - 2.3 mg/dL 02/19/2024 3:16 AM EXPERIENTIAL THERAPIST LABORATORY Blood STRUCTURE OF RIGHT HAND / Unknown Venipuncture / Unknown 02/19/2024 2:55 AM EXPERIENTIAL THERAPIST 02/19/2024 2:58 AM EXPERIENTIAL THERAPIST Sekou Elizalde MD LAB - BLOOD ORDERABLES Final Re sult [facility] [address] Lab (1st floor, no room number) [place] [address], [facility] * (ABNORMAL) CBC with platelets (02/19/2024 12:22 AM EXPERIENTIAL THERAPIST) WBC Count 7.8 4.0 - 11.0 10e3/uL 02/19/2024 12:26 AM EXPERIENTIAL THERAPIST RH LABORATORY RBC Count 4.12(L) 4.40 - 5.90 10e6/uL 02/19/2024 12:26 AM EXPERIENTIAL THERAPIST LABORATORY Hemoglobin 13.6 13.3 - 17.7 g/dL 02/19/2024 12:26 AM EXPERIENTIAL THERAPIST LABORATORY Hematocrit 38.5(L) 40.0 - 53.0 % 02/19/2024 12:26 AM EXPERIENTIAL THERAPIST LABORATORY MCV 93 78 - 100 fL 02/19/2024 12:26 AM EXPERIENTIAL THERAPIST LABORATORY MCH 33.0 26.5 - 33.0 pg 02/19/2024 12:26 AM EXPERIENTIAL THERAPIST LABORATORY MCHC 35.3 31.5 - 36.5 g/dL 02/19/2024 12:26 AM EXPERIENTIAL THERAPIST LABORATORY RDW 13.2 10.0 - 15.0 % 02/19/2024 12:26 AM EXPERIENTIAL THERAPIST LABORATORY Platelet Count 388 150 - 450 10e3/uL 02/19/2024 12:26 AM EXPERIENTIAL THERAPIST LABORATORY Blood STRUCTURE OF RIGHT HAND / Unknown Venipuncture / Unknown 02/19/2024 12:22 AM EXPERIENTIAL THERAPIST 02/19/2024 12:25 AM EXPERIENTIAL THERAPIST us Sekou Elizalde MD LAB - BLOOD ORDERABLES Final Re sult RH LABORATORY [facility] [address] Lab (1st floor, no room number) [place] [address], [facility] * (ABNORMAL) Troponin T, High Sensitivity (02/18/2024 5:47 PM EXPERIENTIAL THERAPIST) Only the most recent of2 resultswithin the time period is included. Troponin T, High Sensitivity 180(HH) <=22 ng/L 02/18/2024 6:33 PM EXPERIENTIAL THERAPIST RH LABORATORY Comment: Either a High Sensitivity Troponin T baseline (0 hours) value = 100 ng/L, or an increase in High Sensitivity Troponin T = 7 ng/L at 2 hours compared to 0 hours (2-0 hours), suggests myocardial injury, and urgent clinical attention is required. If the 2-0 hours increase is <7 ng/L, a High Sensitivity Troponin T result above gender-specific reference ranges warrants further evaluation. Recommendations for further evaluation include correlation with clinical decision-making tool (e.g., HEART), a 3rd High Sensitivity Troponin T test 2 hours after the 2nd (a 20% change from baseline would represent concern), admission for observation, close PCC/cardiology follow-up, or urgent outpatient provocative testing. Blood STRUCTURE OF RIGHT HAND / Unknown Venipuncture / Unknown 02/18/2024 5:47 PM EXPERIENTIAL THERAPIST 02/18/2024 5:55 PM EXPERIENTIAL THERAPIST Dia Reilly MD LAB - BLOOD ORDERABLES F inal Result [facility] [address] Lab (1st floor, no room number) [address] * Lipase (02/18/2024 5:47 PM EXPERIENTIAL THERAPIST) Pathologist [facility] Lipase 59 13 - 60 U/L 02/18/2024 6:55 PM EXPERIENTIAL THERAPIST LABORATORY Blood STRUCTURE OF RIGHT HAND / Unknown Venipuncture / Unknown 02/18/2024 5:47 PM EXPERIENTIAL THERAPIST 02/18/2024 5:55 PM EXPERIENTIAL THERAPIST Dia Reilly MD LAB - BLOOD ORDERABLES F inal Result [facility] [address] Lab (1st floor, no room number) [address] [place] [address] * Hepatic panel (02/18/2024 5:47 PM EXPERIENTIAL THERAPIST) Protein Total 6.8 6.4 - 8.3 g/dL 02/18/2024 6:55 PM EXPERIENTIAL THERAPIST RH LABORATORY Albumin 4.3 3.5 - 5.2 g/dL 02/18/2024 6:55 PM EXPERIENTIAL THERAPIST RH LABORATORY Bilirubin Total 0.7 <=1.2 mg/dL 02/18/2024 6:55 PM EXPERIENTIAL THERAPIST RH LABORATORY Alkaline Phosphatase 69 40 - 150 U/L 02/18/2024 6:55 PM EXPERIENTIAL THERAPIST LABORATORY AST 27 0 - 45 U/L 02/18/2024 6:55 PM EXPERIENTIAL THERAPIST LABORATORY ALT 29 0 - 70 U/L 02/18/2024 6:55 PM EXPERIENTIAL THERAPIST LABORATORY Bilirubin Direct <0.20 0.00 - 0.30 mg/dL 02/18/2024 6:55 PM EXPERIENTIAL THERAPIST LABORATORY Blood STRUCTURE OF RIGHT HAND / Unknown Venipuncture / Unknown 02/18/2024 5:47 PM EXPERIENTIAL THERAPIST 02/18/2024 5:55 PM EXPERIENTIAL THERAPIST Dia Reilly MD LAB - BLOOD ORDERABLES F inal Result LABORATORY [facility] Lab [address] [facility] Lab (1st floor, no room number) [place] [address] * XR Chest 2 Views (02/18/2024 3:03 PM EXPERIENTIAL THERAPIST) Anatomical Region Laterality Modality Chest Computed Radiogr aphy Impressions 02/18/2024 3:07 PM EXPERIENTIAL THERAPIST IMPRESSION: Cardiac silhouette is within normal limits. Aortic arch calcification. No focal airspace consolidation. No pleural effusion or discoid pneumothorax. Radiopaque surgical material projects in the upper abdomen. JAMES REHMAN MD Narrative 02/18/2024 3:07 PM EXPERIENTIAL THERAPIST CHEST TWO VIEWS 02/18/2024 3:03 PM HISTORY: chest pain COMPARISON: None. Procedure Note James Rehman MD - 02/18/2024 CHEST TWO VIEWS 02/18/2024 3:03 PM HISTORY: chest pain COMPARISON: None. IMPRESSION: Cardiac silhouette is within normal limits. Aortic arch calcification. No focal airspace consolidation. No pleural effusion or discoid pneumothorax. Radiopaque surgical material projects in the upper abdomen. JAMES REHMAN MD Dia Reilly MD IMG DIAGNOSTIC IMAGING O RDERABLES Final Result * Extra Red Top Tube (02/18/2024 2:32 PM EXPERIENTIAL THERAPIST) Hold Specimen [facility] 02/18/2024 3:47 PM EXPERIENTIAL THERAPIST RH LABORATORY Blood BLOOD SPECIMEN / Unknown Venipuncture / Unknown 02/18/2024 2:32 PM EXPERIENTIAL THERAPIST 02/18/2024 2:39 PM EXPERIENTIAL THERAPIST Dia Reilly MD LAB - BLOOD ORDERABLES F inal Result [facility] [address] Lab (1st floor, no room number) [address] * Extra Blue Top Tube (02/18/2024 2:32 PM EXPERIENTIAL THERAPIST) Hold Specimen [facility] 02/18/2024 3:47 PM EXPERIENTIAL THERAPIST RH LABORATORY Blood BLOOD SPECIMEN / Unknown Venipuncture / Unknown 02/18/2024 2:32 PM EXPERIENTIAL THERAPIST 02/18/2024 2:39 PM EXPERIENTIAL THERAPIST us Dia Reilly MD LAB - BLOOD ORDERABLES F inal Result [facility] [address] Lab (1st floor, no room number) [address] * (ABNORMAL) CBC with platelets and differential (02/18/2024 2:32 PM EXPERIENTIAL THERAPIST) Pathologist [facility] WBC Count 8.1 4.0 - 11.0 10e3/uL 02/18/2024 2:44 PM EXPERIENTIAL THERAPIST RH LABORATORY RBC Count 4.30(L) 4.40 - 5.90 10e6/uL 02/18/2024 2:44 PM EXPERIENTIAL THERAPIST RH LABORATORY Hemoglobin 14.6 13.3 - 17.7 g/dL 02/18/2024 2:44 PM EXPERIENTIAL THERAPIST RH LABORATORY Hematocrit 40.4 40.0 - 53.0 % 02/18/2024 2:44 PM EXPERIENTIAL THERAPIST RH LABORATORY MCV 94 78 - 100 fL 02/18/2024 2:44 PM EXPERIENTIAL [facility] MCH 34.0(H) 26.5 - 33.0 pg 02/18/2024 2:44 PM EXPERIENTIAL THERAPIST [facility] MCHC 36.1 31.5 - 36.5 g/dL 02/18/2024 2:44 PM EXPERIENTIAL THERAPIST [facility] RDW 13.4 10.0 - 15.0 % 02/18/2024 2:44 PM EXPERIENTIAL THERAPIST [facility] Platelet Count 444 150 - 450 10e3/uL 02/18/2024 2:44 PM EXPERIENTIAL THERAPIST [facility] % Neutrophils 70 % 02/18/2024 2:44 PM EXPERIENTIAL THERAPIST [facility] % Lymphocytes 18 % 02/18/2024 2:44 PM EXPERIENTIAL THERAPIST [facility] % Monocytes 8 % 02/18/2024 2:44 PM EXPERIENTIAL THERAPIST [facility] % Eosinophils 2 % 02/18/2024 2:44 PM EXPERIENTIAL THERAPIST [facility] % Basophils 1 % 02/18/2024 2:44 PM EXPERIENTIAL THERAPIST [facility] % Immature Granulocytes 0 % 02/18/2024 2:44 PM EXPERIENTIAL THERAPIST [facility] NRBCs per 100 WBC 0 <1 /100 024 2:44 PM EXPERIENTIAL THERAPIST [facility] Absolute Neutrophils 5.7 1.6 - 8.3 10e3/uL 02/18/2024 2:44 PM EXPERIENTIAL THERAPIST [facility] Absolute Lymphocytes 1.5 0.8 - 5.3 10e3/uL 02/18/2024 2:44 PM EXPERIENTIAL THERAPIST [facility] Absolute Monocytes 0.7 0.0 - 1.3 10e3/uL 02/18/2024 2:44 PM EXPERIENTIAL THERAPIST [facility] Absolute Eosinophils 0.2 0.0 - 0.7 10e3/uL 02/18/2024 2:44 PM EXPERIENTIAL THERAPIST [facility] Absolute Basophils 0.1 0.0 - 0.2 10e3/uL 02/18/2024 2:44 PM EXPERIENTIAL THERAPIST [facility] Absolute Immature Granulocytes 0.0 <=0.4 10e3/uL 02/18/2024 2:44 PM EXPERIENTIAL THERAPIST [facility] Absolute NRBCs 0.0 10e3/uL 02/18/2024 2:44 PM EXPERIENTIAL THERAPIST [facility] Blood BLOOD SPECIMEN / Unknown Venipuncture / Unknown 02/18/2024 2:32 PM EXPERIENTIAL THERAPIST 02/18/2024 2:39 PM EXPERIENTIAL THERAPIST Dia Reilly MD LAB - BLOOD ORDERABLES F inal Result LABORATORY [facility] Lab [address] [facility] Lab (1st floor, no room number) [place] [address], [facility] * (ABNORMAL) Basic metabolic panel (02/18/2024 2:32 PM EXPERIENTIAL THERAPIST) Sodium 138 135 - 145 mmol/L 02/18/2024 3:01 PM [facility] Potassium 3.3(L) 3.4 - 5.3 mmol/L 02/18/2024 3:01 PM [facility] Chloride 99 98 - 107 mmol/L 02/18/2024 3:01 PM [facility] Carbon Dioxide (CO2) 24 22 - 29 mmol/L 02/18/2024 3:01 PM [facility] Anion Gap 15 7 - 15 mmol/L 02/18/2024 3:01 PM [facility] Urea Nitrogen 11.9 8.0 - 23.0 mg/dL 02/18/2024 3:01 PM [facility] Creatinine 0.72 0.67 - 1.17 mg/dL 02/18/2024 3:01 PM [facility] GFR Estimate >90 >60 mL/min/1.7 3m2 02/18/2024 3:01 PM [facility] Comment:eGFR calculated usin g 2020 CKD-EPI equation. Calcium 9.6 8.8 - 10.4 mg/dL 02/18/2024 3:01 PM [facility] Comment:Reference intervals for this test were updated on 10/20/2023 to reflect our healthy population more accurately. There may be differences in the flagging of prior results with similar values performed with this method. Those prior results can be interpreted in the context of the updated reference intervals. Glucose 127(H) 70 - 99 mg/dL 02/18/2024 3:01 PM [facility] Blood BLOOD SPECIMEN / Unknown Venipuncture / Unknown 02/18/2024 2:32 PM EXPERIENTIAL THERAPIST 02/18/2024 2:39 PM EXPERIENTIAL THERAPIST Dia Reilly MD LAB - BLOOD ORDERABLES F inal Result LABORATORY [facility] [address] Lab (1st floor, no room number) [place] [address], [facility] * EKG 12-lead, tracing only (02/18/2024 2:25 PM EXPERIENTIAL THERAPIST) Systolic Blood Pressure mmHg RADIOLOGY RESULTS Diastolic Blood Pressure mmHg RADIOLOGY RESULTS Ventricular Rate 86 BPM RAD IOLOGY RESULTS Atrial Rate 86 BPM RADIOLOG Y RESULTS [place] Interval 160 ms RADIOLOG Y RESULTS QRS Duration 76 ms RADIOLO GY RESULTS QT 378 ms RADIOLOGY RESULTS QTc 452 ms RADIOLOGY RESULTS P [place] 55 degrees RADIOLOGY RESULTS R AXIS 65 degrees RADIOLOGY RESULTS T [place] 83 degrees RADIOLOGY RESULTS Interpretation ECG Sinus rhythm Nonspecific ST and T wave abnormality Abnormal ECG No previous ECGs available Unconfirmed report - interpretation of this ECG is computer generated - see medical record for final interpretation Confirmed by - EMERGENCY ROOM, PHYSICIAN ([id number]), movie editor Brady Green ([id number]) on 02/18/2024 2:42:16 PM RADIOLOGY RESULTS 02/18/2024 2:25 PM EXPERIENTIAL THERAPIST 02/18/2024 2:42 PM EXPERIENTIAL THERAPIST Dia Reilly MD ECG ORDERABLES Edited R esult - Final RADIOLOGY RESULTS * Lipid Profile (02/06/2022 11:30 AM CDT) Cholesterol 102 <200 mg/dL 02/06/2022 12:24 PM CDT LABORATORY Triglycerides 94 <150 mg/dL 02/06/2022 12:24 PM CDT LABORATORY Direct Measure HDL 43 >=40 mg/dL 02/06/2022 12:24 PM [facility]T LABORATORY LDL Cholesterol Calculated 40 <=100 mg/dL 02/06/2022 12:24 PM CDT LABORATORY Non HDL Cholesterol 59 <130 mg/dL 02/06/2022 12:24 PM CDT LABORATORY Patient Fasting > 8hrs? Unknown 02/06/2022 12:24 PM CDT LABORATORY Blood STRUCTURE OF RIGHT UPPER LIMB / Unknown Venipuncture / Unknown 02/06/2022 11:30 AM CDT 02/06/2022 11:33 AM CDT Narrative LABORATORY - 02/06/2022 12:24 PM CDT Cholesterol Desirable: <200 mg/dL Triglycerides Normal: Less than 150 mg/dL Borderline High: 150-199 mg/dL High: 200-499 mg/dL Very High: Greater than or equal to 500 mg/dL Direct Measure HDL Female: Greater than or equal to 50 mg/dL Male: Greater than or equal to 40 mg/dL LDL Cholesterol Desirable: <100mg/dL Above Desirable: 100-129 mg/dL Borderline High: 130-159 mg/dL High: 160-189 mg/dL Very High: >= 190 mg/dL Non HDL Cholesterol Desirable: 130 mg/dL Above Desirable: 130-159 mg/dL Borderline High: 160-189 mg/dL High: 190-219 mg/dL Very High: Greater than or equal to 220 mg/dL Marvin Dailey MD LAB - BLOOD ORDERABLES Final Result LABORATORY [facility] Lab [address] 1[address], [address] [place] [address], [facility] [phone] from Last 3 Months or Most Recently Relevant to Health Maintenance Insurance MEDICARE Advance Directives For more information, please contact: [phone] * Full Code (Latest Code Status on File) Date Activated Date Inactivated Comments 02/18/2024 6:51 PM 02/19/2024 5:19 PM All basic and advanced life-sustaining interventions are performed as appropriate Question Answer Comments Code status determined by: Discussion with ricky nt/ legal decision maker Care Teams Wireless Team Member Relationship Specialty Start Date End Date Marcelo Smith [address] [address] PCP - General Family Practice 02/19/18
--- OUTSIDE RECORDS SUMMARY | 2024-02-22 15:30 | XMS_ITS | Encounter Summary ---
Author Organization [facility] Address [facility] [address] Care Team Providers Care Lead [employer] Developer Name Role Phone Marcelo Smith Primary Care Provider + [phone] Encounter Details Date Type Department Care Team (Latest Contact Info) Description 02/18/2024 Travel Social History Tobacco Use Types Packs/Day Years Used Date Smoking Tobacco: Never Smokeless Tobacco: Never Alcohol Use Standard Drinks/Week Comments Not Currently 0 (1 standard drink = 0.6 oz pur e alcohol) occ 1-2 drinks per year Adolescent Education Answer Date Record ed Getting School Help Needed Not on file 01/19 Sex and Gender Information Value Date Recorded Sex Assigned at Not on file Legal Sex Male 3:40 AM [employer] Gender Identity Not on file Sexual Orientation Not on file documented as of this encounter Plan of Treatment Not on file documented as of this encounter Visit Diagnoses Not on filedocumented in this encounter Care Teams Lead [employer] Developer Relationship Specialty Start Date End Date Marcelo Smith [address] [address] PCP - General Family Practice 02/19/18 documented as of this encounter
--- OUTSIDE RECORDS SUMMARY | 2024-02-22 15:30 | XMS_ITS | Encounter Summary ---
Author Organization [facility] Address [address] [place] [address]. [place] [address] Care Team Providers Care Talent Associate Name Role Phone Marcelo Smith Primary Care Provider + [phone] Reason for Visit * Reason Comments Chest Pain Abnormal Labs * Auth/Cert Specialty Diagnoses / Procedures Referred By Contac t Referred To Contact EMERGENCY MEDICINE Diagnoses NSTEMI (non-ST elevated myocardial infarction) (H) Hypokalemia [facility] Emergency Dept [address] [place] [address] Phone: tel:[phone] fax: Referral ID Status Reason Start Date Expiration Date Visits Re quested Visits Authorized [id number] 1 1 Encounter Details Date Type Department Care Team (Late st Contact Info) Description 02/18/2024 2:26 PM MINE PATROL - 02/19/2024 3:19 PM MINE PATROL Emergency [facility] Emergency Dept [address] [place] [address] Dia Reilly MD [facility] [address] [place], [place] [address] Sekou Elizalde MD [address] [place], [place] [id number] NSTEMI (non-ST elevated myocardial infarction) (H); Hypokalemia Discharge Disposition: Another Health Care Institution with Planned Hospital IP Readmission Social History Tobacco Use Types Packs/Day Years [...] on file Legal Sex Male 3:40 AM MINE PATROL Gender Identity Not on file Sexual Orientation Not on file documented as of this encounter Last Filed Vital Signs Vital Sign Reading Time Taken Comments Blood Pressure 161/95 02/19/2024 10:09 AM MINE PATROL Pulse 94 02/19/2024 10:09 AM MINE PATROL Temperature 36.8 C (98.2 F) 02/18/2024 2:20 PM MINE PATROL Respiratory Rate 16 02/19/2024 10:09 AM MINE PATROL Oxygen Saturation 98% 02/19/2024 10:09 AM MINE PATROL Inhaled Oxygen Concentration - - Weight 76.3 kg (168 lb 3.4 oz) 02/18/2024 2:20 P M MINE PATROL Height 166.4 cm (5' 5.5) 02/18/2024 2:20 PM MINE PATROL Body Mass Index 27.57 02/18/2024 2:20 PM MINE PATROL documented in this encounter Discharge Summaries * Kita Ferrari MD - 02/19/2024 3:19 PM CST [facility] Hospitalist Discharge Summary Date of Admission: 02/18/2024 Date of Discharge: 02/19/2024 3:19 PM Discharging Provider: Kita Ferrari MD Discharge Service: Hospitalist Service Discharge Diagnoses NSTEMI Clinically Significant Risk Factors # Overweight: Estimated body mass index is 27.57 kg/m?? as calculated from the following: Height as of this encounter: 1.664 m (5' 5.5). Weight as of this encounter: 76.3 kg (168 lb 3.4 oz). Follow-ups Needed After Discharge Unresulted Labs Ordered in the Past 30 Days of this Admission No orders found for last 31 day(s). Discharge Disposition Transferred to outside hospital for coronary cath Condition at discharge: Stable Hospital Course Mohamud Mccormack is a 69-year-old pleasant male with a past medical history significant for coronary artery disease status post PCI back in 2000 at [facility]. Patient presented with a 2-week history of right-sided chest pain which she described as indigestion however when he did not respond to antacids he presented to the clinic for further evaluation. Noted to have elevated troponin so he was sent to the ER for further evaluation. On presentation to the emergency department, VS: BP 165/118, HR 80, RR 18 oxygen saturation 96% breathing room air. He is afebrile. Labs: Creatinine 0.72, potassium 3.3, LFTs normal, glucose 127. Troponin 189 with a delta value of 180. WBC 8.1, Hgb 14.6, PLT 444. Imaging: Chest x-ray was essentially negative for acute abnormality. Normal cardiac silhouette. EKG: Normal sinus rhythm no acute appearing ST-T wave abnormalities. Patient was started on IV heparin was loaded with aspirin 325 mg. Patient underwent Lexiscan as well as the echocardiogram. Echocardiogram revealed normal ejection fraction at 60%. No wall motion abnormality was reported in the echo. Patient underwent nuclear stress test which revealed medium sizedarea of nontransmural infarction in the entire inferior and inferoseptal segment of the left ventricle. Cardiology consulted, appreciated recommendations. Cardiology recommended coronary angiography.Unfortunately [facility] is facing usual than higher number of cases of coronary angiogram today so transferred to [facility] or other [facility] was requested. I was told by the patient pl acement that currently no beds are available in the [facility] system. I placed a transfer request atthe outside hospital in the [facility] system. I was able to speak with Dr. Babin at [facility] who graciously accepted the patient. Patient will be transferring to [facility]. Consultations This Hospital Stay PHARMACY IP CONSULT PHARMACY IP CONSULT CARDIOLOGY IP CONSULT Code Status Full Code Time Spent on this Encounter I, Kita Ferrari MD, personally saw the patient today and spent greater than 30 minutes discharging this patient. Kita Ferrari MD [facility] EMERGENCY DEPT [facility] [address] Physical Exam Vital Signs: BP: (!) 161/95 Pulse: 94 Resp: 16 SpO2: 98 % O2 Device: None (Room air) Weight: 168 lbs 3.38 oz General Appearance: Is calm, comfortable, not in acute distress Respiratory: On room air, equal air entry bilaterally, no wheezing or crackles Cardiovascular: Normal rate, regular rhythm, no murmur GI: Soft, nontender, nondistended Skin: Visible skin appears within normal limit Other: No lower extremity edema noted Primary Care Physician Marcelo Smith Discharge Orders No discharge procedures on file. Significant Results and Procedures Most Recent 3 CBC's: Recent Labs Lab Test 02/19/24 0022 02/18/24 1432 02/06/22 1130 WBC 7.8 8.1 6.6 HGB 13.6 14.6 13.2* MCV 93 94 99 PLT 388 444 294 Most Recent 3 BMP's: Recent Labs Lab Test 02/19/24 0952 02/19/24 0255 02/18/24 1432 02/06/22 1130 NA -- -- 138 141 POTASSIUM 3.8 3.4 3.3* 4.2 CHLORIDE -- -- 99 109 CO2 -- -- 24 28 BUN -- -- 11.9 25 CR -- -- 0.72 0.68 ANIONGAP -- -- 15 4 SURI -- -- 9.6 8.8 GLC -- -- 127* 101* Discharge Medications Discharge Medication List as of 02/19/2024 3:19 PM CONTINUE these medications which have NOT CHANGED Details amLODIPine (NORVASC) 10 MG tablet Daily, Historical aspirin 81 MG tablet Take 81 mg by mouth daily., Historical atorvastatin (LIPITOR) 10 MG tablet Take 10 mg by mouth at bedtime., Historical benazepril (LOTENSIN) 40 MG tablet Take 40 mg by mouth daily., Historical carvedilol (COREG) 25 MG tablet Take 1.5 tablets (37.5 mg) by mouth 2 times daily (with meals), Disp-270 tablet, R-3, E-Prescribe famotidine (PEPCID) 10 MG tablet Twice A Day, Historical hydrochlorothiazide (HYDRODIURIL) 25 MG tablet Take 1 tablet (25 mg) by mouth daily, Disp-90 tablet, R-3, E-Prescribe Multiple Vitamins-Minerals (MULTI FOR HER) TABS Take 1 tablet by mouth every morning., Historical omeprazole (PRILOSEC) [address] capsule Take 20 mg by mouth 2 times daily., Historical traMADol (ULTRAM) 50 MG tablet Take 50 mg by mouth every 6 hours as needed., Historical traZODone (DESYREL) 100 MG tablet Take 100-200 mg by mouth nightly as needed, Historical Allergies No Known Allergies PATROL documented in this encounter Medications at Time of Discharge amLODIPine (NORVASC) 10 MG tablet Daily 10/19/2017 aspirin 81 MG tablet Take 81 mg by mouth daily. atorvastatin (LIPITOR) 10 MG tablet Take 10 mg by mouth at bedtime. benazepril (LOTENSIN) 40 MG tablet Take 40 mg by mouth daily. 10/05/2017 carvedilol (COREG) 25 MG tabletIndications: Hypertension, unspecified type Take 1.5 tablets (37.5 mg) by mouth 2 times daily (with meals) 270 tablet 3 02/20/2022 famotidine (PEPCID) 10 MG tablet Twice A Day hydrochlorothiazid e (HYDRODIURIL) 25 MG tabletIndications: Hypertension, unspecified type Take 1 tablet (25 mg) by mouth daily 90 tablet 3 02/06/2022 Multiple Vitamins-Minerals (MULTI FOR HER) TABS Take 1 tablet by mouth every morning. omeprazole (PRILOSEC) [address] capsule Take 20 mg by mouth 2 times daily. traMADol (ULTRAM) 50 MG tablet Take 50 mg by mouth every 6 hours as needed. 10/20/2017 traZODone (DESYREL) 100 MG tablet Take 100-200 mg by mouth nightly as needed 01/13/2022 documented as of this encounter H&P Notes * Sekou Elizalde MD - 02/18/2024 6:13 PM CST [facility] History and Physical Mohamud Granados Age: [age] year old Date of : 1955 Date of Admission: 02/18/2024 Home clinic: [facility] Primary care provider: Marcelo Smith Assessment and Plan: Assessment: Mohamud Granados is a 69-year-old male with a history of coronary artery disease status post stenting [facility] in 2000. He has not seen a photocopying equipment mechanic in the last 2 years but had a stress echocardiogram in 2021 that was negative for inducible ischemia. He comes in at this time with complaints of chest discomfort that is different than his previous true angina. It has been present howeverfor about 2 weeks on and off and he is also noted some increased dyspnea with activity. He went into his primary clinic today with these concerns which he has been dismissing as gastroesophageal reflux and was found to have an elevated troponin for which reason he was sent to the emergency department. Reviewing the available notes, I cannot find clear reference to which artery was stented in 2000. Sergio note that the patient has had stress tests that are negative since that time including in 2021 but that study documented with submaximal exercise. Mr. Granados has lost more than 40 pounds in the last year or so and with that he no longer is diabetic. He continues on medications for hypertension and dyslipidemia. He smoked for at least 25 years probably 1 to 2 packs/day having quit in 2000. Otherpotentially significant information includes a history of fundoplication procedure and the 1980s. On presentation to the emergency department, VS: BP 165/118, HR 80, RR 18 oxygen saturation 96% breathing room air. He is afebrile. Examination is very benign. Patient appears comfortable and alert, in no apparent distress. He states he is pain-free. His chest pain is nonreproducible on palpation. Labs: Creatinine 0.72, potassium 3.3, LFTs normal, glucose 127. Troponin 189 with a delta value of 180. WBC 8.1, Hgb 14.6, PLT 444. Imaging: Chest x-ray was essentially negative for acute abnormality. Normal cardiac silhouette. EKG: Normal sinus rhythm no acute appearing ST-T wave abnormalities. DX: Unstable Angina in this pt with known CAD. Although the story is not very persuasive, the elevated troponin is hard to ignore. Weight loss, anorexia, stool change. Although these are not things that brought the pt in, I told him that this makes me concerned and I recommended that he follow-up with his primary physician. He apparently has already been referred to gastroenterology by his primary doctor. History of diabetes mellitus now resolved with weight loss. Dyslipidemia. Hypertension. Usual management for this patient includes amlodipine 10 mg daily, carvedilol 25 mg twice daily, benazepril 40 mg daily and hydrochlorothiazide 25 mg daily. Plan: Admit to inpatient on telemetry. Heparin drip. Echocardiogram in the morning. I ordered a nuclear stress test for the morning. Obviously if the echocardiogram is abnormal, patient should be seen by cardiology because he would probably need angiography. Usual home medications are resumed with the exception of carvedilol on the assumption that he will need stress testing in the morning. Chief Complaint: Chest pain, elevated trop History is obtained from the patient, electronic health record, and emergency department physician Mohamud Grant Lucprecious went to his primary physician in [place] today due to discomfort in his chest thathe thought was probably heartburn. The physician also with concern for possible heart related to issues and checked a troponin which was elevated. For this reason, the patient was sent to the emergency department. The patient indicates that he has been having right sided upper chest discomfort for the past 2-3 weeks. He did not think it was much of anything at all and dismissed it as probable gastroesophageal reflux. He does have a history of having had a significant hiatal hernia that was repaired when he was a young man. But it seems that the pain was primarily in the mornings and after eating. He has tried many things for reflux and has not found anything that helped a lot. He has not had trouble withswallowing food but indicates that he is lost his appetite. With the decrease in appetite which hasbeen longstanding, he reports that he has managed to lose about 40 pounds and get off of his diabetic medications. Patient denies fevers, sweats and chills. He has a mild cough which he states is acute and not particularly bothersome. He does not notice chest discomfort with activity but has noted more increased shortness of breath than previous. He also does not have PND, orthopnea or lower extremity edema. Nonausea or vomiting. He has had variable stools with intermittent constipation and diarrhea. Previous colonoscopies have been negative. He denies urinary change. Past Medical History: Coronary artery disease status post stenting in 2000 Hypertension Diabetes mellitus, now diet controlled Dyslipidemia Past Surgical History: Hiatal hernia repair (? Fundoplication) Social History: Patient smoked for at least 25 pack years and quit in about 2000. Previously has been a heavy drinker. Immunizations: There is no immunization history on file for this patient. Allergies: No Known Allergies Medications: Atorvastatin 10 mg daily Omeprazole 20 mg twice daily Amlodipine 10 mg daily Aspirin 81 mg daily Benazepril 40 mg daily Carvedilol 37.5 mg twice daily Famotidine 10 mg twice daily Hydrochlorothiazide 25 mg daily Multivitamin Tramadol 50 mg every 6 hours as needed Trazodone 100 to 200 mg nightly as needed Review of Systems: A comprehensive review of systems was performed and found to be negative except as described in this note Physical Exam: Vitals were reviewed Temp: 98.2 ??F (36.8 ??C) Temp src: Temporal BP: (!) 141/79 Pulse: 77 Resp: 16 SpO2: 96 % O2 Device: None (Room air) Constitutional: Awake, alert, cooperative, no apparent distress, and appears stated age. Eyes: Lids and lashes normal, extra ocular muscles intact, sclera clear, conjunctiva normal. ENT: Normocephalic, without obvious abnormality, atraumatic. Neck: Supple, symmetrical, trachea midline, no adenopathy, thyroid symmetric, not enlarged and no tenderness, skin normal. Hematologic / Lymphatic: No cervical lymphadenopathy and no supraclavicular lymphadenopathy. Back: Symmetric, no curvature, spinous processes are non-tender on palpation, paraspinous muscles are non-tender on palpation, no costal vertebral tenderness. Lungs: No increased work of breathing, good air exchange, clear to auscultation bilaterally, no crackles or wheezing. Cardiovascular: Regular rate and rhythm, normal S1 and S2, no S3 or S4, and no murmur noted. Abdomen: No scars, normal bowel sounds, soft, non-distended, non-tender, no masses palpated, no hepatosplenomegaly. Musculoskeletal: No redness, warmth, or swelling of the joints. No edema. Tone is normal. Neurologic: Awake, alert, oriented to name, place and time. Cranial nerves II- XII are grossly intact. Neuropsychiatric: Normal affect, mood, orientation, memory and insight. Skin: No rashes, erythema, pallor, petechia or purpura. Data: Results for orders placed or performed during the hospital encounter of 02/18/24 (from the past 24 hours) EKG 12-lead, tracing only Result Value Ref Range Systolic Blood Pressure mmHg Diastolic Blood Pressure mmHg Ventricular Rate 86 BPM Atrial Rate 86 BPM NJ Interval 160 ms QRS Duration 76 ms QT 378 ms QTc 452 ms P [place] 55 degrees R AXIS 65 degrees T [place] 83 degrees Interpretation ECG Sinus rhythm Nonspecific ST and T wave abnormality Abnormal ECG No previous ECGs available Unconfirmed report - interpretation of this ECG is computer generated - see medical record for final interpretation Confirmed by - EMERGENCY ROOM, PHYSICIAN ([id number]), associate entertainment editor Brady Green ([id number]) on 02/18/2024 2:42:16PM CBC with Platelets & Differential Narrative The following orders were created for panel order CBC with Platelets & Differential. Procedure Abnormality Status --------- ------ CBC with platelets and d...[[id number]] Abnormal Final result Please view results for these tests on the individual orders. Basic metabolic panel Result Value Ref Range Sodium 138 135 - 145 mmol/L Potassium 3.3 (L) 3.4 - 5.3 mmol/L Chloride 99 98 - 107 mmol/L Carbon Dioxide (CO2) 24 22 - 29 mmol/L Anion Gap 15 7 - 15 mmol/L Urea Nitrogen 11.9 8.0 - 23.0 mg/dL Creatinine 0.72 0.67 - 1.17 mg/dL GFR Estimate >90 >60 mL/min/1.73m2 Calcium 9.6 8.8 - 10.4 mg/dL Glucose 127 (H) 70 - 99 mg/dL Troponin T, High Sensitivity Result Value Ref Range Troponin T, High Sensitivity 189 (HH) <=22 ng/L [place] Draw Narrative The following orders were created for panel order [place] Draw. Procedure Abnormality Status --------- ------ Extra Blue Top Tube[[id number]] Final result Extra Red Top Tube[[id number]] Final result Please view results for these tests on the individual orders. CBC with platelets and differential Result Value Ref Range WBC Count 8.1 4.0 - 11.0 10e3/uL RBC Count 4.30 (L) 4.40 - 5.90 10e6/uL Hemoglobin 14.6 13.3 - 17.7 g/dL Hematocrit 40.4 40.0 - 53.0 % MCV 94 78 - 100 fL MCH 34.0 (H) 26.5 - 33.0 pg MCHC 36.1 31.5 - 36.5 g/dL RDW 13.4 10.0 - 15.0 % Platelet Count 444 150 - 450 10e3/uL % Neutrophils 70 % % Lymphocytes 18 % % Monocytes 8 % % Eosinophils 2 % % Basophils 1 % % Immature Granulocytes 0 % NRBCs per 100 WBC 0 <1 /100 Absolute Neutrophils 5.7 1.6 - 8.3 10e3/uL Absolute Lymphocytes 1.5 0.8 - 5.3 10e3/uL Absolute Monocytes 0.7 0.0 - 1.3 10e3/uL Absolute Eosinophils 0.2 0.0 - 0.7 10e3/uL Absolute Basophils 0.1 0.0 - 0.2 10e3/uL Absolute Immature Granulocytes 0.0 <=0.4 10e3/uL Absolute NRBCs 0.0 10e3/uL Extra Blue Top Tube Result Value Ref Range Hold Specimen JIC Extra Red Top Tube Result Value Ref Range Hold Specimen JIC XR Chest 2 Views Narrative CHEST TWO VIEWS 02/18/2024 3:03 PM HISTORY: chest pain COMPARISON: None. Impression IMPRESSION: Cardiac silhouette is within normal limits. Aortic arch calcification. No focal airspace consolidation. No pleural effusion or discoid pneumothorax. Radiopaque surgical material projects in the upper abdomen. JAMES REHMAN MD Troponin T, High Sensitivity Result Value Ref Range Troponin T, High Sensitivity 180 (HH) <=22 ng/L Lipase Result Value Ref Range Lipase 59 13 - 60 U/L Hepatic panel Result Value Ref Range Protein Total 6.8 6.4 - 8.3 g/dL Albumin 4.3 3.5 - 5.2 g/dL Bilirubin Total 0.7 <=1.2 mg/dL Alkaline Phosphatase 69 40 - 150 U/L AST 27 0 - 45 U/L ALT 29 0 - 70 U/L Bilirubin Direct <0.20 0.00 - 0.30 mg/dL All cardiac studies reviewed by me. All imaging studies reviewed by me. Attestation: I have reviewed today's vital signs, notes, medications, labs and imaging. Sekou Elizalde MD PATROL documented in this encounter Consult Notes * Sekou Bermudez MD - 02/19/2024 12:45 PM CSTAssociated Order(s): CARDIOLOGY IP CONSULT [facility] Cardiology Consultation Date of Admission: 02/18/2024 Assessment & Plan Mohamud Granados is a 69 year old male who was admitted on 02/18/2024. Impression: 1. Atypical chest discomfort but has troponin rise and evidence of a non-Q wave myocardial infarct on nuclear stress testing. Patient is pain-free and hemodynamically stable. 2. Prior history of a myocardial infarct according to the patient with stent placement at [facility] in 2000. 3. History of essential hypertension. Plan: 1. Coronary angiography is clearly indicated in this patient. However the cardiac photo lab manager is completely full this Thursday evening due to the unusual number of cases requiring heart catheterization. Idid discuss this with Dr. Hemphill who is the photocopying equipment mechanic at [facility] and our plan is to transfer the patient to [facility] so that he can get he is cardiac catheterization performed without having to wait until Thursday. The patient is stable. Patient is amenable to this plan. 2. Continue with aspirin and intravenous heparin. Will start the patient on metoprolol tartrate 12.5 mg twice a day. 3. Would increase dose of atorvastatin from 10 mg to 40 mg which is the standard dose for patients with established coronary artery disease. Will continue with lisinopril also. High complexity Sekou Bermudez MD, FACC, FRCPI Primary Care Physician Marcelo Smith Reason for Consult Reason for consult: I was asked by hospitalist service to evaluate this patient for non-ST elevation myocardial infarct. History of Present Illness Mohamud Granados is a 69 year old male who presents with chest discomfort which has been going on for 2 weeks. This is a patient with a prior history of stenting to an unknown vessel in 2000 at [facility]. The records are not available. He has not seen a photocopying equipment mechanic for approximately 2 years. The patient began to develop chest discomfort approximately 2 weeks ago on the right side of the chest. He felt that the discomfort was like reflux. He does take omeprazole and with that he also uses H2 blockers. The chest discomfort came and went lasting typically 20 minutes and then going away. There were no aggravating or relieving factors. Antacids did not improve the chest discomfort. Because of the ongoing chest discomfort he came into the emergency room. His first troponin was raised at189. The second troponin was 180. EKG showed nonspecific ST sagging in the lateral leads. The patient was then referred for a nuclear stress test which was performed this morning and read by my partner Dr. Rodriguez. This showed an nontransmural myocardial infarct in the entire inferior wall and also inthe inferoseptal murillo. Echocardiography showed an ejection fraction of 60% with no regional wall motion abnormalities. The patient was started on aspirin and intravenous heparin. This patient had a negative stress echocardiogram on February. He is followed by Dr. Marvin Dailey in our groupbut he last saw him 2 years ago. This patient also with a history of essential hypertension. Past Medical History 1. Acute myocardial infarct size unknown. Stents placed in 2000. 2. Essential hypertension. 3. Hypercholesterolemia 4. Type 2 diabetes mellitus. 5. Insomnia 6. Esophageal reflux. Past Surgical History No past surgical history on file. Appendectomy Hiatal hernia repair Right rotator cuff surgery. Sinus surgery. Prior to Admission Medications Prior to Admission Medications Prescriptions Last Dose Informant Patient Reported? Taking? Multiple Vitamins-Minerals (MULTI FOR HER) TABS 02/18/2024 Morning Yes Yes Sig: Take 1 tablet by mouth every morning. amLODIPine (NORVASC) 10 MG tablet 02/18/2024 Morning Yes Yes Sig: Daily aspirin 81 MG tablet 02/18/2024 Morning Yes Yes Sig: Take 81 mg by mouth daily. atorvastatin (LIPITOR) 10 MG tablet 02/17/2024 Bedtime Yes Yes Sig: Take 10 mg by mouth at bedtime. benazepril (LOTENSIN) 40 MG tablet 02/18/2024 Morning Yes Yes Sig: Take 40 mg by mouth daily. carvedilol (COREG) 25 MG tablet 02/18/2024 Morning No Yes Sig: Take 1.5 tablets (37.5 mg) by mouth 2 times daily (with meals) famotidine (PEPCID) 10 MG tablet 02/18/2024 Morning Yes Yes Sig: Twice A Day hydrochlorothiazide (HYDRODIURIL) 25 MG tablet 02/18/2024 Morning No Yes Sig: Take 1 tablet (25 mg) by mouth daily omeprazole (PRILOSEC) [address] capsule 02/18/2024 Morning Yes Yes Sig: Take 20 mg by mouth 2 times daily. traMADol (ULTRAM) 50 MG tablet Unknown Yes Yes Sig: Take 50 mg by mouth every 6 hours as needed. traZODone (DESYREL) 100 MG tablet 02/17/2024 Bedtime Yes Yes Sig: Take 100-200 mg by mouth nightly as needed Facility-Administered Medications: None Current Facility-Administered Medications Medication Dose Route Frequency Provider Last Rate Last Admin albuterol (PROVENTIL HFA/VENTOLIN HFA) inhaler 2 puff Inhalation Q5 Min PRN Sekou Elizalde MD alum & mag hydroxide-simethicone (MAALOX) suspension 30 mL 30 mL Oral Q4H PRN Sekou Elizalde MD aminophylline 50-100 mg 50-100 mg Intravenous Once PRN Sekou Elizalde MD amLODIPine (NORVASC) tablet 10 mg 10 mg Oral Daily Sekou Elizalde MD 10 mg at 02/19/24 1010 aspirin EC tablet 81 mg 81 mg Oral Daily Sekou Elizalde MD 81 mg at 02/19/24 1010 atorvastatin (LIPITOR) tablet 10 mg 10 mg Oral At Bedtime Sekou Elizalde MD 10 mg at 02/18/24 2244 caffeine (NO-DOZE) tablet 200 mg 200 mg Oral Once PRN Sekou Elizalde MD caffeine citrate (CAFCIT) injection 60 mg 60 mg Intravenous Once PRN Sekou Elizalde MD diazepam (VALIUM) tablet 5 mg 5 mg Oral Q30 Min PRN Sekou Elizalde MD famotidine (PEPCID) tablet 10 mg 10 mg Oral BID Sekou Elizalde MD 10 mg at 02/19/24 1010 heparin 25,000 units in 0.45% NaCl 250 mL ANTICOAGULANT infusion 0-5,000 Units/hr Intravenous Continuous Skeou Elizalde MD 9 mL/hr at 02/19/24 1012 900 Units/hr at 02/19/24 1012 HOLD: Caffeine containing medications 12 hours prior to the procedure Does not apply HOLD Sekou Elizalde MD HOLD: dipyridamole (PERSANTINE) or aspirin/dipyridamole (AGGRENOX) 48 hours prior to the procedure Does not apply HOLD Sekou Elizalde MD HOLD: theophylline or aminophylline 12 hours prior to the procedure Does not apply HOLD Sekou Elizalde MD hydrochlorothiazide (HYDRODIURIL) tablet 25 mg 25 mg Oral Daily Sekou Elizalde MD 25 mg at 02/19/24 1010 IF patient diabetic - HOLD: ALL ORAL HYPOGLYCEMICS and include: glipizide, glyburide, glimepiride, gliclazide, metformin, any metformin containing medication, on day of the procedure Does not apply HOLD Sekou Elizalde MD lidocaine (LMX4) cream Topical Q1H PRN Sekou Elizalde MD lidocaine 1 % 1 mL 1 mL Other Q1H PRN Sekou Elizalde MD lisinopril (ZESTRIL) tablet 40 mg 40 mg Oral Daily Sekou Elizalde MD 40 mg at 02/19/24 1009 LORazepam (ATIVAN) tablet 0.5 mg 0.5 mg Oral Q30 Min PRN Sekou Elizalde MD nitroGLYcerin (NITROSTAT) sublingual tablet 0.4 mg 0.4 mg Sublingual Q5 Min PRN Sekou Elizalde MD potassium & sodium phosphates (NEUTRA-PHOS) Packet 1 packet 1 packet Oral or Feeding Tube Q4H Sekou Elizalde MD 1 packet at 02/19/24 1009 sodium chloride (PF) 0.9% PF flush 1-10 mL 1-10 mL Intravenous Q10 Min PRN Sekou Elizalde MD sodium chloride (PF) 0.9% PF flush 3 mL 3 mL Intravenous Q1H PRN Sekou Elizalde MD sodium chloride (PF) 0.9% PF flush 3 mL 3 mL Intravenous Q8H Sekou Elizalde MD traZODone (DESYREL) tablet 100-200 mg 100-200 mg Oral At Bedtime PRN Sekou Elizalde MD Current Outpatient Medications Medication Sig Dispense Refill amLODIPine (NORVASC) 10 MG tablet Daily aspirin 81 MG tablet Take 81 mg by mouth daily. atorvastatin (LIPITOR) 10 MG tablet Take 10 mg by mouth at bedtime. benazepril (LOTENSIN) 40 MG tablet Take 40 mg by mouth daily. carvedilol (COREG) 25 MG tablet Take 1.5 tablets (37.5 mg) by mouth 2 times daily (with meals) 270 tablet 3 famotidine (PEPCID) 10 MG tablet Twice A Day hydrochlorothiazide (HYDRODIURIL) 25 MG tablet Take 1 tablet (25 mg) by mouth daily 90 tablet 3 Multiple Vitamins-Minerals (MULTI FOR HER) TABS Take 1 tablet by mouth every morning. omeprazole (PRILOSEC) [address] capsule Take 20 mg by mouth 2 times daily. traMADol (ULTRAM) 50 MG tablet Take 50 mg by mouth every 6 hours as needed. traZODone (DESYREL) 100 MG tablet Take 100-200 mg by mouth nightly as needed Current Facility-Administered Medications Medication Dose Route Frequency Provider Last Rate Last Admin albuterol (PROVENTIL HFA/VENTOLIN HFA) inhaler 2 puff Inhalation Q5 Min PRN Sekou Elizalde MD alum & mag hydroxide-simethicone (MAALOX) suspension 30 mL 30 mL Oral Q4H PRN Sekou Elizalde MD aminophylline 50-100 mg 50-100 mg Intravenous Once PRN Sekou Elizalde MD amLODIPine (NORVASC) tablet 10 mg 10 mg Oral Daily Sekou Elizalde MD 10 mg at 02/19/24 1010 aspirin EC tablet 81 mg 81 mg Oral Daily Sekou Elizalde MD 81 mg at 02/19/24 1010 atorvastatin (LIPITOR) tablet 10 mg 10 mg Oral At Bedtime Sekou Elizalde MD 10 mg at 02/18/24 2244 caffeine (NO-DOZE) tablet 200 mg 200 mg Oral Once PRN Sekou Elizalde MD caffeine citrate (CAFCIT) injection 60 mg 60 mg Intravenous Once PRN Sekou Elizalde MD diazepam (VALIUM) tablet 5 mg 5 mg Oral Q30 Min PRN Sekou Elizalde MD famotidine (PEPCID) tablet 10 mg 10 mg Oral BID Sekou Elizalde MD 10 mg at 02/19/24 1010 heparin 25,000 units in 0.45% NaCl 250 mL ANTICOAGULANT infusion 0-5,000 Units/hr Intravenous Continuous Sekou lEizalde MD 9 mL/hr at 02/19/24 1012 900 Units/hr at 02/19/24 1012 HOLD: Caffeine containing medications 12 hours prior to the procedure Does not apply HOLD Sekou Elizalde MD HOLD: dipyridamole (PERSANTINE) or aspirin/dipyridamole (AGGRENOX) 48 hours prior to the procedure Does not apply HOLD Sekou Elizalde MD HOLD: theophylline or aminophylline 12 hours prior to the procedure Does not apply HOLD Sekou Elizalde MD hydrochlorothiazide (HYDRODIURIL) tablet 25 mg 25 mg Oral Daily Sekou Elizalde MD 25 mg at 02/19/24 1010 IF patient diabetic - HOLD: ALL ORAL HYPOGLYCEMICS and include: glipizide, glyburide, glimepiride, gliclazide, metformin, any metformin containing medication, on day of the procedure Does not apply HOLD Sekou Elizalde MD lidocaine (LMX4) cream Topical Q1H PRN Sekou Elizalde MD lidocaine 1 % 1 mL 1 mL Other Q1H PRN Sekou Elizalde MD lisinopril (ZESTRIL) tablet 40 mg 40 mg Oral Daily Sekou Elizalde MD 40 mg at 02/19/24 1009 LORazepam (ATIVAN) tablet 0.5 mg 0.5 mg Oral Q30 Min PRN Sekou Elizalde MD nitroGLYcerin (NITROSTAT) sublingual tablet 0.4 mg 0.4 mg Sublingual Q5 Min PRN Sekou Elizalde MD potassium & sodium phosphates (NEUTRA-PHOS) Packet 1 packet 1 packet Oral or Feeding Tube Q4H Sekou Elizalde MD 1 packet at 02/19/24 1009 sodium chloride (PF) 0.9% PF flush 1-10 mL 1-10 mL Intravenous Q10 Min PRN Sekou Elizalde MD sodium chloride (PF) 0.9% PF flush 3 mL 3 mL Intravenous Q1H PRN Sekou Elizalde MD sodium chloride (PF) 0.9% PF flush 3 mL 3 mL Intravenous Q8H Sekou Elizalde MD traZODone (DESYREL) tablet 100-200 mg 100-200 mg Oral At Bedtime PRN Parens, Sekou R, MD Current Outpatient Medications Medication Sig Dispense Refill amLODIPine (NORVASC) 10 MG tablet Daily aspirin 81 MG tablet Take 81 mg by mouth daily. atorvastatin (LIPITOR) 10 MG tablet Take 10 mg by mouth at bedtime. benazepril (LOTENSIN) 40 MG tablet Take 40 mg by mouth daily. carvedilol (COREG) 25 MG tablet Take 1.5 tablets (37.5 mg) by mouth 2 times daily (with meals) 270 tablet 3 famotidine (PEPCID) 10 MG tablet Twice A Day hydrochlorothiazide (HYDRODIURIL) 25 MG tablet Take 1 tablet (25 mg) by mouth daily 90 tablet 3 Multiple Vitamins-Minerals (MULTI FOR HER) TABS Take 1 tablet by mouth every morning. omeprazole (PRILOSEC) [address] capsule Take 20 mg by mouth 2 times daily. traMADol (ULTRAM) 50 MG tablet Take 50 mg by mouth every 6 hours as needed. traZODone (DESYREL) 100 MG tablet Take 100-200 mg by mouth nightly as needed Allergies No Known Allergies Social History reports that he has never smoked. He has never used smokeless tobacco. He reports that he does not currently use alcohol. Family History I have reviewed this patient's family history and updated it with pertinent information if needed. Family History Problem Relation Age of Onset Heart Surgery Mother Review of Systems A comprehensive review of system was performed and is negative other than that noted in the HPI or here. Physical Exam Vital Signs with Ranges Temp: [98.2 ??F (36.8 ??C)] 98.2 ??F (36.8 ??C) Pulse: [61-106] 94 Resp: [16-18] 16 BP: (123-166)/(74-118) 161/95 SpO2: [89 %-98 %] 98 % Wt Readings from Last 4 Encounters: 02/18/24 76.3 kg (168 lb 3.4 oz) 02/06/22 75.8 kg (167 lb 1.6 oz) 02/19/18 86.6 kg (191 lb) No intake/output data recorded. Vitals: BP (!) 161/95 Pulse 94 Temp 98.2 ??F (36.8 ??C) (Temporal) Resp 16 Ht 1.664 m (5' 5.5) Wt 76.3 kg (168 lb 3.4 oz) SpO2 98% BMI 27.57 kg/m?? Physical Exam: General - Alert and oriented to time place and person in no acute distress Eyes - No scleral icterus HEENT - Neck supple, moist mucous membranes Cardiovascular -heart sounds 1 and 2 are normal with no murmurs. Jugular venous pulse is not raised. Carotids are normal with no bruits. Extremities - There is no peripheral edema Respiratory -chest is clear to percussion and auscultation Skin - No pallor or cyanosis Gastrointestinal - Non tender and non distended without rebound or guarding Psych - Appropriate affect Neurological - No gross motor neurological focal deficits No lab results found in last 7 days. Invalid input(s): TROPONINIES Recent Labs Lab 02/19/24 0952 02/19/24 0255 02/19/24 0022 02/18/24 1747 02/18/24 1432 WBC -- -- 7.8 -- 8.1 HGB -- -- 13.6 -- 14.6 MCV -- -- 93 -- 94 PLT -- -- 388 -- 444 NA -- -- -- -- 138 POTASSIUM 3.8 3.4 -- -- 3.3* CHLORIDE -- -- -- -- 99 CO2 -- -- -- -- 24 BUN -- -- -- -- 11.9 CR -- -- -- -- 0.72 GFRESTIMATED -- -- -- -- >90 ANIONGAP -- -- -- -- 15 SURI -- -- -- -- 9.6 GLC -- -- -- -- 127* ALBUMIN -- -- -- 4.3 -- PROTTOTAL -- -- -- 6.8 -- BILITOTAL -- -- -- 0.7 -- ALKPHOS -- -- -- 69 -- ALT -- -- -- 29 -- AST -- -- -- 27 -- LIPASE -- -- -- 59 -- Recent Labs Lab Test 02/06/22 1130 01/24/22 1458 CHOL 102 -- HDL 43 -- LDL 40 -- TRIG 94 120 Recent Labs Lab 02/19/24 0022 11/14/24 1432 WBC 7.8 8.1 HGB 13.6 14.6 HCT 38.5* 40.4 MCV 93 94 PLT 388 444 No results for input(s): PH, PHV, PO2, PO2V, SAT, PCO2, PCO2V, HCO3, HCO3V in thelast 168 hours. No results for input(s): NTBNPI, NTBNP in the last 168 hours. No results for input(s): DD in the last 168 hours. No results for input(s): SED, CRP in the last 168 hours. Recent Labs Lab 02/19/24 0022 02/18/24 1432 PLT 388 444 No results for input(s): TSH in the last 168 hours. No results for input(s): COLOR, APPEARANCE, URINEGLC, URINEBILI, URINEKETONE, SG, UBLD, URINEPH, PROTEIN, UROBILINOGEN, NITRITE, LEUKEST, RBCU, WBCU in the last 168 hours. Imaging: Recent Results (from the past 48 hours) XR Chest 2 Views Narrative CHEST TWO VIEWS 02/18/2024 3:03 PM HISTORY: chest pain COMPARISON: None. Impression IMPRESSION: Cardiac silhouette is within normal limits. Aortic arch calcification. No focal airspace consolidation. No pleural effusion or discoid pneumothorax. Radiopaque surgical material projects in the upper abdomen. JAMES REHMAN MD [place] Lexiscan stress test (nuc card) Result Value Target HR 152 Baseline Systolic BP 124 Baseline Diastolic BP 86 Last Stress Systolic BP 167 Last Stress Diastolic BP 98 Baseline HR 88 Max HR 101 Max Predicted HR 66 Rate Pressure Product 16,867.0 Narrative The nuclear stress test is abnormal. There is a medium sized area of nontransmural infarction in the entire inferior and inferoseptal segment(s) of the left ventricle. No evidence of ischemia. Left ventricular function is normal. EF greater than 70% with inferiro hypokinesis. There is no prior study for comparison. Echocardiogram Complete Result Value LVEF 60% Narrative [id number]^MARIA EUGENIA^SEKOU^[facility] [address] [place] [address] Name: MOHAMUD GRANADOS : 1955 Study Date: 02/19/2024 11:44 AM Age: 69 yrs Gender: Male Patient Location: [facility] Reason For Study: Chest Pain, Chest Pressure, [...] approved by: Kira Lam 02/19/2024 11:35 AM Echo: No results found for this or any previous visit (from the past 4320 hours). Clinically Significant Risk Factors Present on Admission # Hypokalemia: Lowest K = 3.3 mmol/L in last 2 days, will replace as needed # Drug Induced Platelet Defect: home medication list includes an antiplatelet medication # Hypertension: Home medication list includes antihypertensive(s) # Overweight: Estimated body mass index is 27.57 kg/m?? as calculated from the following: Height as of this encounter: 1.664 m (5' 5.5). Weight as of this encounter: 76.3 kg (168 lb 3.4 oz). [place] vessel CAD PATROL documented in this encounter ED Notes * Jennifer Villegas RN - 02/19/2024 5:13 AM CST [facility] ED Boarding Nurse Handoff Addendum Report: Date/time: 02/19/2024, 5:13 AM Activity Level: independent Fall Risk: Yes: patient and family education Active Infusions: Hep gtt Current Meds Due: review MAR Current care needs: continue plan of care Oxygen requirements (liters/min and/or FiO2): Respiratory status: Room air Vital signs (within last 30 minutes): BP (!) 156/88 Pulse 83 Temp 98.2 ??F (36.8 ??C) (Temporal) Resp 16 Ht 1.664 m (5' 5.5) Wt 76.3 kg (168 lb 3.4 oz) SpO2 (!) 89% BMI 27.57 kg/m?? Focused assessment within last 30 minutes: Alert and oriented. VSS on RA. Denies chest pain this shift. No difficulty urinating. NPO. No callsfrom tele. ED Boarding Nurse name: Jennifer Villegas RN PATROL * Gretchen Vidal RN - 02/18/2024 11:22 PM CST Bed: ED30 Expected date: Expected time: Means of arrival: Comments: ED13 PATROL * Michelet Mcdonald RN - 02/18/2024 6:37 PM CST [facility] ED Nurse Handoff Report ED Chief complaint: Chest Pain and Abnormal Labs . ED Diagnosis: Final diagnoses: NSTEMI (non-ST elevated myocardial infarction) (H) Hypokalemia Allergies: No Known Allergies Code Status: Full Code Activity level - Baseline/Home: independent. Activity Level - Current: independent. Lift room needed: No. Bariatric: No Nitrogen Operator Needed: No Isolation: No. Infection: Not Applicable. Respiratory status: Room air Vital Signs (within 30 minutes): Vitals: 02/18/24 1420 02/18/24 1421 BP: (!) 165/118 Pulse: 80 Resp: 18 Temp: 98.2 ??F (36.8 ??C) TempSrc: Temporal SpO2: 96% Weight: 76.3 kg (168 lb 3.4 oz) Height: 1.664 m (5' 5.5) Cardiac Rhythm: , Pain level: Patient confused: No. Patient Falls Risk: bed/chair alarm on, nonskid shoes/slippers when out of bed, and patient and family education. Elimination Status: Has voided Patient Report - Initial Complaint: Abnormal labs. Focused Assessment: Mohamud Granados is a 69 year old male on aspirin 81 mg with a history of myocardial infarction with two stent placements and GERD who presents with intermittent right sided chest tightness for two weeks. Eating makes the pain worse. He was seen by his PCP earlier today for this and was found to have an elevated troponin. He adds the pain feels like heart burn which he had with his hiatal hernia in the past. Pain is not similar to previous heart attack. He had some shortness ofbreath a few weeks ago while working in the yard which he adds is normal for him. He has two stentsin his heart and is not currently on Plavix. Abnormal Results: Labs Ordered and Resulted from Time of ED Arrival to Time of ED Departure BASIC METABOLIC PANEL - Abnormal Result Value Sodium 138 Potassium 3.3 (*) Chloride 99 Carbon Dioxide (CO2) 24 Anion Gap 15 Urea Nitrogen 11.9 Creatinine 0.72 GFR Estimate >90 Calcium 9.6 Glucose 127 (*) TROPONIN T, HIGH SENSITIVITY - Abnormal Troponin T, High Sensitivity 189 (*) CBC WITH PLATELETS AND DIFFERENTIAL - Abnormal WBC Count 8.1 RBC Count 4.30 (*) Hemoglobin 14.6 Hematocrit 40.4 MCV 94 MCH 34.0 (*) MCHC 36.1 RDW 13.4 Platelet Count 444 % Neutrophils 70 % Lymphocytes 18 % Monocytes 8 % Eosinophils 2 % Basophils 1 % Immature Granulocytes 0 NRBCs per 100 WBC 0 Absolute Neutrophils 5.7 Absolute Lymphocytes 1.5 Absolute Monocytes 0.7 Absolute Eosinophils 0.2 Absolute Basophils 0.1 Absolute Immature Granulocytes 0.0 Absolute NRBCs 0.0 TROPONIN T, HIGH SENSITIVITY - Abnormal Troponin T, High Sensitivity 180 (*) LIPASE HEPATIC FUNCTION PANEL XR Chest 2 Views Final Result IMPRESSION: Cardiac silhouette is within normal limits. Aortic arch calcification. No focal airspace consolidation. No pleural effusion or discoid pneumothorax. Radiopaque surgical material projects in the upper abdomen. JAMES REHMAN MD Treatments provided: See MAR Family Comments: Updated. OBS brochure/video discussed/provided to patient: Yes ED Medications: Medications heparin 25,000 units in 0.45% NaCl 250 mL ANTICOAGULANT infusion (900 Units/hr Intravenous $New Bag02/18/241751) aspirin (ASA) tablet 325 mg (325 mg Oral $Given 02/18/24 173) heparin loading dose for LOW INTENSITY TREATMENT * Give BEFORE starting heparin infusion (4,600 Units Intravenous $Given 02/18/241750) potassium chloride mike ER (KLOR-CON M20) CR tablet 20 mEq (20 mEq Oral $Given 02/18/24 174) Drips infusing: Yes Heparin For the majority of the shift this patient was Green. Interventions performed were N/A. Sepsis treatment initiated: No Cares/treatment/interventions/medications to be completed following ED care: Heparin infusion. ED Nurse Name: Michelet Mcdonald RN 6:37 PM PATROL * Eden Bradley RN - 02/18/2024 5:14 PM CST Bed: ED13 Expected date: Expected time: Means of arrival: Comments: triage PATROL * Dia Reilly MD - 02/18/2024 2:36 PM CST Emergency Department Note History of Present Illness Chief Complaint Chest Pain and Abnormal Labs HPI Mohamud Granados is a 69 year old male on aspirin 81 mg with a history of myocardial infarction with two stent placements and GERD who presents with intermittent right sided chest tightness for two weeks. Eating makes the pain worse. He was seen by his PCP earlier today for this and was found to have an elevated troponin. He adds the pain feels like heart burn which he had with his hiatal hernia in the past. Pain is not similar to previous heart attack. He had some shortness of breath a few weeks ago while working in the yard which he adds is normal for him. He has two stents in his heart and isnot currently on Plavix. Independent Historian None Review of External Notes Reviewed patient's visit with primary care on February 01, 2024, patient was seen for chest pain with nausea. Past Medical History Medical History and Problem List Controlled type 2 diabetes mellitus Chronic hip pin, left Elevated liver enzymes GERD Hypertension Hypercholesterolemia History of myocardial infarction Heart disease Insomnia, idiopathic Medications Achiphex Amlodipine Aspirin 81 MG Atorvastatin Benazepril Carvedilol Famotidine Hydrochlorothiazide Metformin Tramadol Trazodone Zolpidem Surgical History Appendectomy Coronary stent placement, two stents Hiatal hernia repair Rotator cuff surgery, right Physical Exam Patient Vitals for the past 24 hrs: BP Temp Temp src Pulse Resp SpO2 Height Weight 02/18/24 1858 (!) 142/83 -- -- 77 16 96 % -- -- 02/18/24 1421 -- -- -- -- 18 -- -- -- 02/18/24 1420 (!) 165/118 98.2 ??F (36.8 ??C) Temporal 80 -- 96 % 1.664 m (5' 5.5) 76.3 kg (168 lb3.4 oz) Physical Exam General: Well-nourished, resting comfortably when I enter the room Eyes: Pupils equal, conjunctivae pink no scleral icterus or conjunctival injection ENT: Moist mucus membranes Respiratory: Lungs clear to auscultation bilaterally, no crackles/rubs/wheezes. Good air movement CV: Normal rate and rhythm, no murmurs GI: Abdomen soft and non-distended. No tenderness, guarding or rebound Skin: Warm, dry. No rashes or petechiae Musculoskeletal: No peripheral edema or calf tenderness Neuro: Alert and oriented to person/place/time Psychiatric: Normal affect Diagnostics Lab Results Labs Ordered and Resulted from Time of ED Arrival to Time of ED Departure BASIC METABOLIC PANEL - Abnormal Result Value Sodium 138 Potassium 3.3 (*) Chloride 99 Carbon Dioxide (CO2) 24 Anion Gap 15 Urea Nitrogen 11.9 Creatinine 0.72 GFR Estimate >90 Calcium 9.6 Glucose 127 (*) TROPONIN T, HIGH SENSITIVITY - Abnormal Troponin T, High Sensitivity 189 (*) CBC WITH PLATELETS AND DIFFERENTIAL - Abnormal WBC Count 8.1 RBC Count 4.30 (*) Hemoglobin 14.6 Hematocrit 40.4 MCV 94 MCH 34.0 (*) MCHC 36.1 RDW 13.4 Platelet Count 444 % Neutrophils 70 % Lymphocytes 18 % Monocytes 8 % Eosinophils 2 % Basophils 1 % Immature Granulocytes 0 NRBCs per 100 WBC 0 Absolute Neutrophils 5.7 Absolute Lymphocytes 1.5 Absolute Monocytes 0.7 Absolute Eosinophils 0.2 Absolute Basophils 0.1 Absolute Immature Granulocytes 0.0 Absolute NRBCs 0.0 TROPONIN T, HIGH SENSITIVITY - Abnormal Troponin T, High Sensitivity 180 (*) LIPASE - Normal Lipase 59 HEPATIC FUNCTION PANEL - Normal Protein Total 6.8 Albumin 4.3 Bilirubin Total 0.7 Alkaline Phosphatase 69 AST 27 ALT 29 Bilirubin Direct <0.20 CBC WITH PLATELETS Imaging XR Chest 2 Views Final Result IMPRESSION: Cardiac silhouette is within normal limits. Aortic arch calcification. No focal airspace consolidation. No pleural effusion or discoid pneumothorax. Radiopaque surgical material projects in the upper abdomen. JAMES REHMAN MD Echocardiogram Complete (Results Pending) [place] Lexiscan stress test (nuc card) (Results Pending) EKG ECG taken at 1425 Normal sinus rhythm Nonspecific ST and T wave abnormality Rate 86 bpm. [place] interval 160 ms. QRS duration 76 ms. QT/QTc 378/452 ms. P-R-T axes 55 65 83. Independent Interpretation Chest x-ray does not show any consolidation, pleural effusion. ED Course Medications Administered Medications amLODIPine (NORVASC) tablet 10 mg (has no administration in time range) atorvastatin (LIPITOR) tablet 40 mg (has no administration in time range) lisinopril (ZESTRIL) tablet 40 mg (has no administration in time range) hydrochlorothiazide (HYDRODIURIL) tablet 25 mg (has no administration in time range) famotidine (PEPCID) tablet 10 mg (has no administration in time range) traZODone (DESYREL) tablet 100-200 mg (has no administration in time range) aspirin EC tablet 81 mg (has no administration in time range) nitroGLYcerin (NITROSTAT) sublingual tablet 0.4 mg (has no administration in time range) alum & mag hydroxide-simethicone (MAALOX) suspension 30 mL (has no administration in time range) sodium chloride (PF) 0.9% PF flush 1-10 mL (has no administration in time range) sodium chloride (PF) 0.9% PF flush 10 mL (has no administration in time range) HOLD: Caffeine containing medications 12 hours prior to the procedure (has no administration in time range) HOLD: dipyridamole (PERSANTINE) or aspirin/dipyridamole (AGGRENOX) 48 hours prior to the procedure (has no administration in time range) HOLD: theophylline or aminophylline 12 hours prior to the procedure (has no administration in time range) IF patient diabetic - HOLD: ALL ORAL HYPOGLYCEMICS and include: glipizide, glyburide, glimepiride, gliclazide, metformin, any metformin containing medication, on day of the procedure (has no administration in time range) heparin 25,000 units in 0.45% NaCl 250 mL ANTICOAGULANT infusion (has no administration in time range) aspirin (ASA) tablet 325 mg (325 mg Oral $Given 02/18/24 1732) heparin loading dose for LOW INTENSITY TREATMENT * Give BEFORE starting heparin infusion (4,600 Units Intravenous $Given 02/18/24 1751) potassium chloride mike ER (KLOR-CON M20) CR tablet 20 mEq (20 mEq Oral $Given 02/18/24 1747) Discussion of Management Admitting Hospitalist, Dr. Elizalde. ED Course ED Course as of 02/18/24 1901 Roseann Feb 18, 2024 1440 I obtained the patient's history and examined as noted above. 172 I rechecked the patient and explained findings. [address] Elizalde, hospitalist, regarding the patient's history and presentation here in the emergency department who accepted the patient for admission. Additional Documentation None Medical Decision Making / Diagnosis [facility] Diagnoses: None MIPS None MDM Mohamud Granados is a 69 year old male with a history of coronary artery coronary disease, hypertension, hyperlipidemia, diabetes who is presenting to the emergency department with a complaint of an elevated troponin, and intermittent chest pain for the past 2 weeks. On evaluation patient is currently asymptomatic. He does not have any swelling in his lower extremities. Lung sounds are clear. No murmurs. EKG does not show any signs of ischemia. Troponin comes back elevated at 189. Potassium is slightlylow at 3.3 and is replaced. On reevaluation patient is still not having any chest pain. I am going to start him on heparin for NSTEMI. Spoke with Dr. Elizalde for admission. Disposition The patient was admitted to the hospital. Diagnosis ICD-10-CM 1. NSTEMI (non-ST elevated myocardial infarction) (H) I21.4 2. Hypokalemia E87.6 Scribe Disclosure: I, Cathy Virgillorena, am serving as a scribe at 2:40 PM on 02/18/2024 to document services personally performed by Dia Reilly MD based on my observations and the provider's statements to me. Dia Reilly MD 02/22/24 0723 PATROL * Melba Samaniego RN - 02/18/2024 2:19 PM CST Pt here per clinic for intermittent chest pain x 1 month. Had a trop done and it was 0.43. Hx of stent in 2000. In triage is pain free. Breathing is easy and unlabored. PATROL documented in this encounter Miscellaneous Notes * Care Plan - Neisha Joe RN - 02/19/2024 1:57 PM CST Report given to Abbot VAHID MONROE. PATROL * Plan of Care - Neisha Joe RN - 02/19/2024 9:30 AM CST Goal Outcome Evaluation: Plan of Care Reviewed With: patient Overall Patient Progress: improvingOverall Patient Progress: improving Outcome Evaluation: Lexiscan in process PRIMARY DIAGNOSIS: CHEST PAIN OUTPATIENT/OBSERVATION GOALS TO BE MET BEFORE DISCHARGE: 1. Ruled out acute coronary syndrome (negative or stable Troponin): Yes 2. Pain Status: Pain free. 3. Appropriate provocative testing performed: No, in process. - Stress Test Procedure: Lesiscan - Interpretation of cardiac rhythm per technical mgr: SR 70s 4. Cleared by Consultants (if applicable):No 5. Return to near baseline physical activity: Yes Group Exercise Instructor Nurse Safe discharge environment identified: Yes Barriers to discharge: Yes Entered by: Neisha Joe RN 02/19/2024 9:30 AM Please review provider order for any additional goals. Nurse to notify provider when observation goals have been met and patient is ready for discharge. PATROL * Pharmacy-Admission Medication History - Russ Arteaga RPH - 02/18/2024 9:48 PM CST Pharmacist Admission Medication History Admission medication history is complete. The information provided in this note is only as accurateas the sources available at the time of the update. Information Source(s): Patient via in-person Pertinent Information: outside meds Changes made to SUSTAINABILITY PROJECT MANAGER medication list: Added: asa, prilosec Deleted: aciphex, co-enzyme q10, metformin, ambien Changed: lipitor Allergies reviewed with patient and updates made in EHR: yes Medication History Completed By: Russ Arteaga RPH 02/18/2024 9:48 PM SUSTAINABILITY PROJECT MANAGER Med List Medication Sig Last Dose/Taking amLODIPine (NORVASC) 10 MG tablet Daily 02/18/2024 Morning aspirin 81 MG tablet Take 81 mg by mouth daily. 02/18/2024 Morning atorvastatin (LIPITOR) 10 MG tablet Take 10 mg by mouth at bedtime. 02/17/2024 Bedtime benazepril (LOTENSIN) 40 MG tablet Take 40 mg by mouth daily. 02/18/2024 Morning carvedilol (COREG) 25 MG tablet Take 1.5 tablets (37.5 mg) by mouth 2 times daily (with meals) 02/18/2024 Morning famotidine (PEPCID) 10 MG tablet Twice A Day 02/18/2024 Morning hydrochlorothiazide (HYDRODIURIL) 25 MG tablet Take 1 tablet (25 mg) by mouth daily 02/18/2024 Morning Multiple Vitamins-Minerals (MULTI FOR HER) TABS Take 1 tablet by mouth every morning. 02/18/2024 Morning omeprazole (PRILOSEC) [address] capsule Take 20 mg by mouth 2 times daily. 02/18/2024 Morning traMADol (ULTRAM) 50 MG tablet Take 50 mg by mouth every 6 hours as needed. Unknown traZODone (DESYREL) 100 MG tablet Take 100-200 mg by mouth nightly as needed 02/17/2024 Bedtime PATROL documented in this encounter Plan of Treatment Not on file documented as of this encounter Procedures Procedure Name Priority Date/Time Associated Diagnosis Comments ECHO COMPLETE Routine 02/19/2024 11:17 AM MINE PATROL HEPARIN UNFRACTIONATED ANTI XA LEVEL STAT 02/19/2024 9:52 AM MINE PATROL POTASSIUM STAT 02/19/2024 9:52 AM MINE PATROL PHOSPHORUS STAT 02/19/2024 9:52 AM MINE PATROL NM MPI WITH LEXISCAN Routine 02/19/2024 9:39 AM MINE PATROL HEPARIN UNFRACTIONATED ANTI XA LEVEL STAT 02/19/2024 2:55 AM MINE PATROL POTASSIUM STAT 02/19/2024 2:55 AM MINE PATROL PHOSPHORUS STAT 02/19/2024 2:55 AM MINE PATROL MAGNESIUM STAT 02/19/2024 2:55 AM MINE PATROL CBC WITH PLATELETS STAT 02/19/2024 12 :22 AM MINE PATROL TROPONIN T, HIGH SENSITIVITY STAT 02/18/2024 5:47 PM MINE PATROL LIPASE Add-On 02/18/2024 5:47 PM MINE PATROL HEPATIC FUNCTION PANEL Add-On 5:47 PM MINE PATROL XR CHEST 2 VIEWS STAT 02/18/2024 3:03 PM MINE PATROL EXTRA TUBE STAT 02/18/2024 2:32 PM MINE PATROL EXTRA RED TOP TUBE STAT 02/18/2024 2: 32 PM MINE PATROL EXTRA BLUE TOP TUBE STAT 02/18/2024 2 :32 PM MINE PATROL CBC WITH PLATELETS AND DIFFERENTIAL STAT 02/18/2024 2:32 PM MINE PATROL TROPONIN T, HIGH SENSITIVITY STAT 02/18/2024 2:32 PM MINE PATROL CBC WITH PLATELETS & DIFFERENTIAL STAT 02/18/2024 2:32 PM MINE PATROL BASIC METABOLIC PANEL STAT 02/18/2024 2:32 PM MINE PATROL EKG 12-LEAD, TRACING ONLY STAT 02/18/2024 2:25 PM MINE PATROL documented in this encounter Results * ECHO COMPLETE (02/19/2024 11:17 AM MINE PATROL) LVEF 60% CARDIOLOGY RESULTS Anatomical Region Laterality Modality Echocardiography 02/19/2024 11:4 4 AM MINE PATROL Narrative 02/19/2024 11:35 AM MINE PATROL [id number]^MARIA EUGENIA^SEKOU^R [facility] [address] [place] [address] Name: MOHAMUD GRANADOS : 1955 Study Date: 02/19/2024 11:44 AM Age: 69 yrs Gender: Male Patient Location: [facility] Reason For Study: Chest Pain, Chest Pressure, [...] Procedure Note Trenton Arevalo MD - 02/19/2024 [id number]^MARIA EUGENIA^SEKOU^Shreya [facility] [address] [place] [id number] Name: MOHAMUD GRANADOS : 1955 Study Date: 02/19/2024 11:44 AM Age: 69 yrs Gender: Male Patient Location: [facility] Reason For Study: Chest Pain, Chest Pressure, [...] ORDERABLES Edited Resul t - Final * (ABNORMAL) Phosphorus (02/19/2024 9:52 AM MINE PATROL) Phosphorus 1.7(L) 2.5 - 4.5 mg/dL 02/19/2024 10:23 AM MINE PATROL LABORATORY Blood STRUCTURE OF RIGHT HAND / Unknown Venipuncture / Unknown 02/19/2024 9:52 AM MINE PATROL 02/19/2024 10:04 AM MINE PATROL Sekou Elizalde MD LAB - BLOOD ORDERABLES Final Re sult LABORATORY [facility] Care Lab [address] [facility] Lab (1st floor, no room number) [place] [address] * Potassium (02/19/2024 9:52 AM MINE PATROL) Potassium 3.8 3.4 - 5.3 mmol/L 02/19/2024 10:23 AM MINE PATROL LABORATORY Blood STRUCTURE OF RIGHT HAND / Unknown Venipuncture / Unknown 02/19/2024 9:52 AM MINE PATROL 02/19/2024 10:04 AM MINE PATROL us Sekou Elizalde MD LAB - BLOOD ORDERABLES Final Re sult [facility] Acute Care Lab [address] Lab (1st floor, no room number) [place] [address] * Heparin Unfractionated Anti Xa Level (02/19/2024 9:52 AM MINE PATROL) Anti Xa Unfractionated Heparin 0.33 For Reference Range, See Comment IU/mL 02/19/2024 10:16 AM MINE PATROL LABORATORY Blood STRUCTURE OF RIGHT HAND / Unknown Venipuncture / Unknown 02/19/2024 9:52 AM MINE PATROL 02/19/2024 10:04 AM MINE PATROL Narrative LABORATORY - 02/19/2024 10:16 AM MINE PATROL Therapeutic Range: UFH: 0.25-0.50 IU/mL for low intensity dosing, 0.30-0.70 IU/mL for high intensity dosing DVT and PE. This test is not validated for other direct factor X inhibitors (e.g. rivaroxaban, apixaban, edoxaban, betrixaban, fondaparinux) and should not be used for monitoring of other medications. Sekou Elizalde MD LAB - BLOOD ORDERABLES Final Re sult Performing Organization Address City/[facility]/ZIP Co de Phone Number [facility] [address] Lab (1st floor, no room number) [place] [address], [facility] * NM Lexiscan stress test (nuc card) (02/19/2024 9:39 AM MINE PATROL) Target HR 152 RADIANT Baseline Systolic BP 124 RADIANT Baseline Diastolic BP 86 RADIANT Last Stress Systolic BP 167 RADIANT Last Stress Diastolic BP 98 RADIANT Baseline HR 88 bpm RADIANT Max HR 101 RADIANT Max Predicted HR 66 % RADIANT Rate Pressure Product 16,867.0 RADIANT Anatomical Region Laterality Modality Chest Nuclear Medicine Narrative 02/19/2024 11:45 AM MINE PATROL The nuclear stress test is abnormal. There [...] mid inferior. All other segments are normal. us Sekou Elizalde MD [facility] [place] ORDERABLES Final Result * Magnesium (02/19/2024 2:55 AM MINE PATROL) Magnesium 1.9 1.7 - 2.3 mg/dL 02/19/2024 3:16 AM MINE PATROL RH LABORATORY Blood STRUCTURE OF RIGHT HAND / Unknown Venipuncture / Unknown 02/19/2024 2:55 AM MINE PATROL 02/19/2024 2:58 AM MINE PATROL Sekou Elizalde MD LAB - BLOOD ORDERABLES Final Re sult [facility] [address] Lab (1st floor, no room number) [place] [phone] [place] [address] * Potassium (02/19/2024 2:55 AM MINE PATROL) Potassium 3.4 3.4 - 5.3 mmol/L 02/19/2024 3:16 AM MINE PATROL RH LABORATORY Blood STRUCTURE OF RIGHT HAND / Unknown Venipuncture / Unknown 02/19/2024 2:55 AM MINE PATROL 02/19/2024 2:58 AM MINE PATROL Sekou Elizalde MD LAB - BLOOD ORDERABLES Final Re sult Performing Organization Address [facility]/ZIP Co de Phone Number [facility] Care Lab [address] Lab (1st floor, no room number) [place] [phone] [place] [address] * (ABNORMAL) Phosphorus (02/19/2024 2:55 AM MINE PATROL) Phosphorus 2.0(L) 2.5 - 4.5 mg/dL 02/19/2024 3:16 AM MINE PATROL RH LABORATORY Blood STRUCTURE OF RIGHT HAND / Unknown Venipuncture / Unknown 02/19/2024 2:55 AM MINE PATROL 02/19/2024 2:58 AM MINE PATROL us Sekou Elizalde MD LAB - BLOOD ORDERABLES Final Re sult [facility] [address] Lab (1st floor, no room number) [place] [address] * Heparin Unfractionated Anti Xa Level (02/19/2024 2:55 AM MINE PATROL) Pathologist [facility] Anti Xa Unfractionated Heparin 0.49 For Reference Range, See Comment IU/mL 02/19/2024 3:14 AM MINE PATROL RH LABORATORY Blood STRUCTURE OF RIGHT HAND / Unknown Venipuncture / Unknown 02/19/2024 2:55 AM MINE PATROL 02/19/2024 2:58 AM MINE PATROL Narrative RH LABORATORY - 02/19/2024 3:14 AM MINE PATROL Therapeutic Range: UFH: 0.25-0.50 IU/mL for low intensity dosing, 0.30-0.70 IU/mL for high intensity dosing DVT and PE. This test is not validated for other direct factor X inhibitors (e.g. rivaroxaban, apixaban, edoxaban, betrixaban, fondaparinux) and should not be used for monitoring of other medications. us Sekou Elizalde MD LAB - BLOOD ORDERABLES Final Re sult LABORATORY [facility] Acute Care Lab [address] [facility] Lab (1st floor, no room number) [place] [address], [facility] * (ABNORMAL) CBC with platelets (02/19/2024 12:22 AM MINE PATROL) [facility] WBC Count 7.8 4.0 - 11.0 10e3/uL 02/19/2024 12:26 AM MINE PATROL RH LABORATORY RBC Count 4.12(L) 4.40 - 5.90 10e6/uL 02/19/2024 12:26 AM MINE PATROL RH LABORATORY Hemoglobin 13.6 13.3 - 17.7 g/dL 02/19/2024 12:26 AM MINE PATROL RH LABORATORY Hematocrit 38.5(L) 40.0 - 53.0 % 02/19/2024 12:26 AM MINE PATROL RH LABORATORY MCV 93 78 - 100 fL 02/19/2024 12:26 AM MINE PATROL RH LABORATORY MCH 33.0 26.5 - 33.0 pg 02/19/2024 12:26 AM MINE PATROL RH LABORATORY MCHC 35.3 31.5 - 36.5 g/dL 02/19/2024 12:26 AM MINE PATROL RH LABORATORY RDW 13.2 10.0 - 15.0 % 02/19/2024 12:26 AM MINE PATROL RH LABORATORY Platelet Count 388 150 - 450 10e3/uL 02/19/2024 12:26 AM MINE PATROL RH LABORATORY Blood STRUCTURE OF RIGHT HAND / Unknown Venipuncture / Unknown 02/19/2024 12:22 AM MINE PATROL 02/19/2024 12:25 AM MINE PATROL us Sekou Elizalde MD LAB - BLOOD ORDERABLES Final Re sult LABORATORY [facility] Care Lab [address] Lab (1st floor, no room number) [place] [phone] * Hepatic panel (02/18/2024 5:47 PM MINE PATROL) Pathologist [facility] Protein Total 6.8 6.4 - 8.3 g/dL 02/18/2024 6:55 PM MINE PATROL LABORATORY Albumin 4.3 3.5 - 5.2 g/dL 02/18/2024 6:55 PM MINE PATROL LABORATORY Bilirubin Total 0.7 <=1.2 mg/dL 02/18/2024 6:55 PM MINE PATROL RH LABORATORY Alkaline Phosphatase 69 40 - 150 U/L 02/18/2024 6:55 PM MINE PATROL RH LABORATORY AST 27 0 - 45 U/L 02/18/2024 6:55 PM MINE PATROL LABORATORY ALT 29 0 - 70 U/L 02/18/2024 6:55 PM MINE PATROL LABORATORY Bilirubin Direct <0.20 0.00 - 0.30 mg/dL 02/18/2024 6:55 PM MINE PATROL RH LABORATORY Blood STRUCTURE OF RIGHT HAND / Unknown Venipuncture / Unknown 02/18/2024 5:47 PM MINE PATROL 02/18/2024 5:55 PM MINE PATROL Dia Reilly MD LAB - BLOOD ORDERABLES F inal Result LABORATORY [facility] Care Lab [address] Lab (1st floor, no room number) [place] [address] * Lipase (02/18/2024 5:47 PM MINE PATROL) Lipase 59 13 - 60 U/L 02/18/2024 6:55 PM MINE PATROL LABORATORY Blood STRUCTURE OF RIGHT HAND / Unknown Venipuncture / Unknown 02/18/2024 5:47 PM MINE PATROL 02/18/2024 5:55 PM MINE PATROL Dia Reilly MD LAB - BLOOD ORDERABLES F inal Result LABORATORY [facility] Care Lab [address] Lab (1st floor, no room number) [place] [address] * (ABNORMAL) Troponin T, High Sensitivity (02/18/2024 5:47 PM MINE PATROL) Pathologist [facility] Troponin T, High Sensitivity 180(HH) <=22 ng/L 02/18/2024 6:33 PM MINE PATROL LABORATORY Comment: Either a High Sensitivity Troponin [...] Unknown Venipuncture / Unknown 02/18/2024 5:47 PM MINE PATROL 02/18/2024 5:55 PM MINE PATROL Dia Reilly MD LAB - BLOOD ORDERABLES F inal Result LABORATORY [facility] Care Lab [address] Lab (1st floor, no room number) [place] [phone] * XR Chest 2 Views (02/18/2024 3:03 PM MINE PATROL) Anatomical Region Laterality Modality Chest Computed Radiogr aphy Impressions 02/18/2024 3:07 PM MINE PATROL IMPRESSION: Cardiac silhouette is within normal limits. Aortic arch calcification. No focal airspace consolidation. No pleural effusion or discoid pneumothorax. Radiopaque surgical material projects in the upper abdomen. JAMES REHMAN MD Narrative 02/18/2024 3:07 PM MINE PATROL CHEST TWO VIEWS 02/18/2024 3:03 PM HISTORY: [...] Extra Red Top Tube (02/18/2024 2:32 PM MINE PATROL) Hold Specimen [facility] 02/18/2024 3:47 PM MINE PATROL RH LABORATORY Blood BLOOD SPECIMEN / Unknown Venipuncture / Unknown 02/18/2024 2:32 PM MINE PATROL 02/18/2024 2:39 PM MINE PATROL us Dia Reilly MD LAB - BLOOD ORDERABLES F inal Result LABORATORY [facility] Care Lab [address] Lab (1st floor, no room number) [place] [address], [facility] * Extra Blue Top Tube (02/18/2024 2:32 PM MINE PATROL) Hold Specimen [facility] 02/18/2024 3:47 PM MINE PATROL RH LABORATORY Blood BLOOD SPECIMEN / Unknown Venipuncture / Unknown 02/18/2024 2:32 PM MINE PATROL 02/18/2024 2:39 PM MINE PATROL Dia Reilly MD LAB - BLOOD ORDERABLES F inal Result RH LABORATORY [facility] Lab [address] Lab (1st floor, no room number) [place] [address] * (ABNORMAL) CBC with platelets and differential (02/18/2024 2:32 PM MINE PATROL) WBC Count 8.1 4.0 - 11.0 10e3/uL 02/18/2024 2:44 PM MINE PATROL RH LABORATORY RBC Count 4.30(L) 4.40 - 5.90 10e6/uL 02/18/2024 2:44 PM MINE PATROL RH LABORATORY Hemoglobin 14.6 13.3 - 17.7 g/dL 02/18/2024 2:44 PM MINE PATROL RH LABORATORY Hematocrit 40.4 40.0 - 53.0 % 02/18/2024 2:44 PM MINE PATROL RH LABORATORY MCV 94 78 - 100 fL 02/18/2024 2:44 PM MINE PATROL RH LABORATORY MCH 34.0(H) 26.5 - 33.0 pg 02/18/2024 2:44 PM MINE PATROL RH LABORATORY MCHC 36.1 31.5 - 36.5 g/dL 02/18/2024 2:44 PM MINE PATROL RH LABORATORY RDW 13.4 10.0 - 15.0 % 02/18/2024 2:44 PM MINE PATROL RH LABORATORY Platelet Count 444 150 - 450 10e3/uL 02/18/2024 2:44 PM MINE PATROL RH LABORATORY % Neutrophils 70 % 02/18/2024 2:44 PM MINE PATROL RH LABORATORY % Lymphocytes 18 % 02/18/2024 2:44 PM MINE PATROL RH LABORATORY % Monocytes 8 % 02/18/2024 2:44 PM MINE PATROL RH LABORATORY % Eosinophils 2 % 02/18/2024 2:44 PM MINE PATROL RH LABORATORY % Basophils 1 % 02/18/2024 2:44 PM MINE PATROL RH LABORATORY % Immature Granulocytes 0 % 02/18/2024 2:44 PM MINE PATROL RH LABORATORY NRBCs per 100 WBC 0 <1 /100 024 2:44 PM MINE PATROL RH LABORATORY Absolute Neutrophils 5.7 1.6 - 8.3 10e3/uL 02/18/2024 2:44 PM MINE PATROL RH LABORATORY Absolute Lymphocytes 1.5 0.8 - 5.3 10e3/uL 02/18/2024 2:44 PM MINE PATROL RH LABORATORY Absolute Monocytes 0.7 0.0 - 1.3 10e3/uL 02/18/2024 2:44 PM MINE PATROL RH LABORATORY Absolute Eosinophils 0.2 0.0 - 0.7 10e3/uL 02/18/2024 2:44 PM MINE PATROL RH LABORATORY Absolute Basophils 0.1 0.0 - 0.2 10e3/uL 02/18/2024 2:44 PM MINE PATROL RH LABORATORY Absolute Immature Granulocytes 0.0 <=0.4 10e3/uL 02/18/2024 2:44 PM MINE PATROL RH LABORATORY Absolute NRBCs 0.0 10e3/uL 02/18/2024 2:44 PM MINE PATROL LABORATORY Blood BLOOD SPECIMEN / Unknown Venipuncture / Unknown 02/18/2024 2:32 PM MINE PATROL 02/18/2024 2:39 PM MINE PATROL Dia Reilly MD LAB - BLOOD ORDERABLES F inal Result LABORATORY [facility] Lab [address] [facility] Lab (1st floor, no room number) [place] [address], [facility] * (ABNORMAL) Troponin T, High Sensitivity (02/18/2024 2:32 PM MINE PATROL) Troponin T, High Sensitivity 189(HH) <=22 ng/L 02/18/2024 3:14 PM MINE PATROL RH LABORATORY Comment: Either a High Sensitivity [...] follow-up, or urgent outpatient provocative testing. Blood BLOOD SPECIMEN / Unknown Venipuncture / Unknown 02/18/2024 2:32 PM MINE PATROL 02/18/2024 2:39 PM MINE PATROL Dia Reilly MD LAB - BLOOD ORDERABLES F inal Result LABORATORY [facility] Lab [address] [facility] Lab (1st floor, no room number) [place] [address] * (ABNORMAL) Basic metabolic panel (02/18/2024 2:32 PM MINE PATROL) Sodium 138 135 - 145 mmol/L 02/18/2024 3:01 PM [facility] Potassium 3.3(L) 3.4 - 5.3 mmol/L 02/18/2024 3:01 PM [facility] Chloride 99 98 - 107 mmol/L 02/18/2024 3:01 PM [facility] Carbon Dioxide (CO2) 24 22 - 29 mmol/L 02/18/2024 3:01 PM [facility] Anion Gap 15 7 - 15 mmol/L 02/18/2024 3:01 PM [facility] Urea Nitrogen 11.9 8.0 - 23.0 mg/dL 02/18/2024 3:01 PM [facility] Creatinine 0.72 0.67 - 1.17 mg/dL 02/18/2024 3:01 PM [facility] GFR Estimate >90 >60 mL/min/1.7 3m2 02/18/2024 3:01 PM [facility] Comment:eGFR calculated usin 2020 CKD-EPI equation. Calcium 9.6 8.8 - 10.4 mg/dL 02/18/2024 3:01 PM [facility] Comment:Reference intervals for this test were updated on 10/20/2023 to reflect our healthy population more accurately. There may be differences in the flagging of prior results with similar values performed with this method. Those prior results can be interpreted in the context of the updated reference intervals. Glucose 127(H) 70 - 99 mg/dL 02/18/2024 3:01 PM MINE PATROL LABORATORY Blood BLOOD SPECIMEN / Unknown Venipuncture / Unknown 02/18/2024 2:32 PM MINE PATROL 02/18/2024 2:39 PM MINE PATROL Dia Reilly MD LAB - BLOOD ORDERABLES F inal Result LABORATORY [facility] Lab [address] Lab (1st floor, no room number) [place] [address] * EKG 12-lead, tracing only (02/18/2024 2:25 PM MINE PATROL) Systolic Blood Pressure mmHg RADIOLOGY RESULTS Diastolic Blood Pressure mmHg RADIOLOGY RESULTS Ventricular Rate 86 BPM RAD IOLOGY RESULTS Atrial Rate 86 BPM RADIOLOG Y RESULTS [place] Interval 160 ms RADIOLOG Y RESULTS QRS Duration 76 ms RADIOLO GY RESULTS QT 378 ms RADIOLOGY RESULTS QTc 452 ms RADIOLOGY RESULTS P [place] 55 degrees RADIOLOGY RESULTS R AXIS 65 degrees RADIOLOGY RESULTS T [place] 83 degrees RADIOLOGY RESULTS Interpretation ECG Sinus rhythm Nonspecific ST and T wave abnormality Abnormal ECG No previous ECGs available Unconfirmed report - interpretation of this ECG is computer generated - see medical record for final interpretation Confirmed by - EMERGENCY ROOM, PHYSICIAN ([id number]), associate entertainment editor Brady Green [id number]) on 02/18/2024 2:42:16 PM RADIOLOGY RESULTS 02/18/2024 2:25 PM MINE PATROL 02/18/2024 2:42 PM MINE PATROL Dia Reilly MD ECG ORDERABLES Edited R esult - Final RADIOLOGY RESULTS documented in this encounter Visit Diagnoses Diagnosis NSTEMI (non-ST elevated myocardial infarction) (H) Acute myocardial infarction, subendocardial infarction, episode of care unspecified Hypokalemia Hypopotassemia Hypokalemia Hypopotassemia NSTEMI (non-ST elevated myocardial infarction) (H) Acute myocardial infarction, subendocardial infarction, episode of care unspecified documented in this encounter Administered Medications Inactive Administered Medications - up to 3 most recent administrations Medication Order MAR Action Action Date Dose Rate Site albuterol (PROVENTIL HFA/VENTOLIN HFA) inhaler 2 puff, Inhalation, EVERY 5 MIN PRN, other, may repeat every 5 minutes x 3 doses if needed, Starting on Thu02/19/24 at 0756, For 3 doses, Max total three doses Indications: - COPD - severe bronchospasm (notify the procedural provider that Albuterol was administered) Check the dose counter on the inhaler to ensure there are doses remaining before administering. Prime by spraying into the air 4 times prior to first use and if not used within 2 weeks., Cardiac Intra-procedure aminophylline 50-100 mg 50-100 mg, Intravenous, ONCE PRN, other, For adverse effects (flushing, headache, hypotension, nausea) lasting 4 minutes or longer, or at onset of severe regadenoson side effects (angina, abdominal discomfort, chest pain/discomfort, dizziness/syncope, dyspnea/wheezing, dysrhythmia, severe bronchospasms, second or third degree heart block, ST segment depression), Starting on Thu02/19/24 at 0756, For 1 dose, For Stress Testing with nuclear medicine: Give 50mg slow IV injection (over 30-60 seconds, not to exceed 50mg over 30 seconds). May repeat x 1 for persistent symptoms lasting 5 minutes after initial aminophylline dose. Maximum dose is 250mg in 24 hours. For Stress Testing with MRI or other modalities: Give 100mg slow IV injection (over 30-60 seconds, not to exceed 50mg over 30 seconds). May repeat x 1 for persistent symptoms lasting 5 minutes after initial aminophylline dose. Maximum dose is 250mg in 24 hours. Notify procedural provider that aminophylline was administered and reason for administration. Hold aminophylline if patient has a history of seizure disorder., Cardiac Intra-procedure amLODIPine (NORVASC) tablet 10 mg 10 mg, Oral, DAILY, First dose on Thu02/19/24 at 0800 $Given 02/19/2024 10:10 AM MINE PATROL 10 mg aspirin (ASA) tablet 325 mg 325 mg, Oral, ONCE, On Roseann 02/18/24 at 1730, For 1 dose $Given 02/18/2024 5:32 PM MINE PATROL 325 mg aspirin EC tablet 81 mg 81 mg, Oral, DAILY, First dose on Thu02/19/24 at 0800, DO NOT CRUSH. $Given 02/19/2024 10:10 AM MINE PATROL 81 mg atorvastatin (LIPITOR) tablet 10 mg 10 mg, Oral, AT BEDTIME, First dose on Roseann 02/18/24 at 2220 $Given 02/18/2024 10:44 PM MINE PATROL 10 mg atorvastatin (LIPITOR) tablet 40 mg 40 mg, Oral, AT BEDTIME, First dose (after last modification) on Thu02/19/24 at 2200 caffeine (NO-DOZE) tablet 200 mg 200 mg, Oral, ONCE PRN, If aminophylline not available, for mild regadenoson side effects lasting 4 minutes or longer (flushing, headache, hypotension, nausea), Starting on Thu02/19/24 at 0756, For 8 hours, Cardiac Intra-procedure caffeine citrate (CAFCIT) injection 60 mg 60 mg, Intravenous, ONCE PRN, if aminophylline not available, at onset of severe regadenoson side effects (angina, abdominal discomfort, chest pain/discomfort, dizziness/syncope, dyspnea/wheezing, dysrhythmia, severe bronchospasms, second or third degree heart block, ST segment depression), Starting on Thu02/19/24 at 0756, For 8 hours, Give slow IV push over 3-5 minutes. May be given undiluted., Cardiac Intra-procedure diazepam (VALIUM) tablet 5 mg 5 mg, Oral, EVERY 30 MIN PRN, anxiety, Starting on Thu02/19/24 at 0756, For 2 doses, LORazepam (ATIVAN) preferred over diazepam (Valium) for patients over 65 per recommendation on age adjusted medication policy. Give 1 hour prior to the procedure, if the patient has not received a dose on the patient care unit or at home prior to arrival. May repeat 5 mg dose every 30 minutes x 1. MAX total dose of 10 mg. Hold if respiratory rate less than 12 or systolic blood pressure less than 90 mmHg., Cardiac Intra-procedure famotidine (PEPCID) tablet 10 mg 10 mg, Oral, 2 TIMES DAILY, First dose on Thu02/18/24 at 2220 $Given 02/19/2024 10:10 AM [facility] 10 mg $Given 02/18/2024 10:44 PM [facility] 10 mg heparin 25,000 units in 0.45% NaCl 250 mL ANTICOAGULANT infusion 0-5,000 Units/hr (0-50 mL/hr), Intravenous, CONTINUOUS, Starting on Roseann 02/18/24 at 1730, --Nurse to use Heparin Infusion ADULT Dose Adjustments by RN order set after EVERY heparin unfractionated Anti-Xa result to place further orders (for bolus if needed, infusion adjustment if needed, and ordering next lab)- Starting Infusion Rate = 900 Units/hr (12 units/kg/hr). (Ordered: 02/18/2024) Low Intensity Heparin Treatment WITH Boluses. GOAL: Heparin Anti-Xa (10a) LEVEL = 0.25-0.5 IF HEPARIN INFUSION HELD FOR PROCEDURE: Restart heparin infusion at previous rate (no bolus needed). Nurse to place a one-time unfractionated heparin Anti-Xa lab order timed for 6 hours after heparin infusion was restarted., Heparin Therapy Type: Low Intensity Heparin Infusion (Anti Xa 0.25-0.5), Initial Set-up verified by: leonardo mcdonald [email or web address] Bag 02/18/2024 5:52 PM [facility] 900 Units/hr 9 mL/hr heparin 25,000 units in 0.45% NaCl 250 mL ANTICOAGULANT infusion 0-5,000 Units/hr (0-50 mL/hr), Intravenous, CONTINUOUS, Starting on Roseann 02/18/24 at 1855, --Nurse to use Heparin Infusion ADULT Dose Adjustments by RN order set after EVERY heparin unfractionated Anti-Xa result to place further orders (for bolus if needed, infusion adjustment if needed, and ordering next lab)- Starting Infusion Rate = 900 Units/hr (12 units/kg/hr). (Ordered: 02/18/2024) Low Intensity Heparin Treatment WITH Boluses. GOAL: Heparin Anti-Xa (10a) LEVEL = 0.25-0.5 IF HEPARIN INFUSION HELD FOR PROCEDURE: Restart heparin infusion at previous rate (no bolus needed). Nurse to place a one-time unfractionated heparin Anti-Xa lab order timed for 6 hours after heparin infusion was restarted., Heparin Therapy Type: Low Intensity Heparin Infusion (Anti Xa 0.25-0.5) $New Bag 02/19/2024 3:14 PM [facility] 900 Units/hr 9 mL/hr Rate/Dose Verify 02/19/2024 10:12 AM [facility] 900 Units/hr 9 mL /hr Rate/Dose Verify 02/19/2024 3:48 AM [facility] 900 Units/hr 9 mL/ hr heparin loading dose for LOW INTENSITY TREATMENT * Give BEFORE starting heparin infusion 4,600 Units (rounded from 4,578 Units = 60 Units/kg 76.3 kg), Intravenous, ONCE, On Roseann 02/18/24 at 1730, For 1 dose, Infuse over 5 minutes. Low Intensity Heparin Treatment. Nurse to administer dose from existing infusion. If no infusion bag or syringe for this order is available, contact pharmacist to re-enter medication order. $Given 02/18/2024 5:51 PM [facility] 4,600 Units hydrochlorothiazide (HYDRODIURIL) tablet 25 mg 25 mg, Oral, DAILY, First dose on Thu02/19/24 at 0800 $Given 02/19/2024 10:10 AM [facility] 25 mg lidocaine (LMX4) cream Topical, EVERY 1 HOUR PRN, mild pain, with VAD insertion or accessing implanted port,, Starting on Thu02/19/24 at 0756, For 1 dose, Do NOT give if patient has a history of allergy to any local anesthetic or any liss product. Apply 30 min prior to VAD insertion or port access. MAX Dose: 2.5 gm ( of 5 gm tube), Cardiac Intra-procedure lidocaine 1 % 1 mL 1 mL, Other, EVERY 1 HOUR PRN, mild pain with VAD insertion or accessing implanted port., Starting on Thu02/19/24 at 0756, Do NOT give if patient has a history of allergy to any local anesthetic or any liss product. MAX dose 1 mL subcutaneous OR intradermal in divided doses., Cardiac Intra-procedure lisinopril (ZESTRIL) tablet 40 mg 40 mg, Oral, DAILY, First dose on Thu02/19/24 at 0800, This therapy was substituted for benazepril (Lotensin) 40 mg daily. $Given 02/19/2024 10:09 AM [facility] 40 mg LORazepam (ATIVAN) tablet 0.5 mg 0.5 mg, Oral, EVERY 30 MIN PRN, anxiety, Starting on Thu02/19/24 at 0756, For 2 doses, Give 1 hour prior to the procedure. LORazepam (ATIVAN) preferred over diazepam (Valium) for patients over 65 per recommendation on age adjusted medication policy May repeat 0.5 mg dose every 30 minutes x 1. Max total dose of 1 mg. Hold if respiratory rate is less than 12 or systolic blood pressure less than 90 mmHg., Cardiac Intra-procedure nitroGLYcerin (NITROSTAT) sublingual tablet 0.4 mg 0.4 mg, Sublingual, EVERY 5 MIN PRN, chest pain, Starting on Thu02/19/24 at 0756, For 8 hours, Max 3 doses., Cardiac Intra-procedure potassium & sodium phosphates (NEUTRA-PHOS) Packet 1 packet 1 packet, Oral or Feeding Tube, EVERY 4 HOURS, First dose on Thu02/19/24 at 0350, For 3 doses, Phosphorus level 2-2.4 mg/dL Administer 1 packet of oral or feeding tubephosphorus replacement x 3 doses and recheck phosphorus level next AM. Ordered from the Phosphorus replacement order set., Phosphorus Replacement: Phosphorus level 2-2.4 mg/dL and Creatinine Clearance GREATER than or EQUAL to 30 mL/min, Recheck: Phosphorus level next AM $Given 02/19/2024 2:12 PM [facility] 1 packet $Given 02/19/2024 10:09 AM [facility] 1 packet $Given 02/19/2024 4:26 AM [facility] 1 packet potassium chloride mike ER (KLOR-CON M20) CR tablet 20 mEq 20 mEq, Oral, ONCE, On Roseann 02/18/24 at 1730, For 1 dose, DO NOT CRUSH $Given 02/18/2024 5:47 PM [facility] 20 mEq potassium chloride mike ER (KLOR-CON M20) CR tablet 40 mEq 40 mEq, Oral, ONCE, On Thu02/19/24 at 0350, For 1 dose, Potassium level 3.1 - 3.4 mmol/L Ordered from the Potassium replacement order set. DO NOT CRUSH, Potassium Replacement: Potassium level 3.1-3.4 mmol/L, Recheck: Potassium level 4 hours AFTER last oral dose $Given 02/19/2024 4:26 AM [facility] 40 mEq regadenoson (LEXISCAN) 0.4 MG/5ML injection Starting on Thu02/19/24 at 0758, For 1 dose, Elton Harris N: cabinet override regadenoson (LEXISCAN) injection 0.4 mg 0.4 mg, Intravenous, ONCE, On Thu02/19/24 at 0800, For 1 dose, Give by rapid IV injection (approximately over 10-15 seconds). Follow with a saline flush immediately after regadenoson administration, then follow with radioactive tracer (radiopharmaceutical agent)., Cardiac Intra-procedure $Given 02/19/2024 8:46 AM [facility] 0.4 mg sodium chloride (PF) 0.9% PF flush 3 mL 3 mL, Intravenous, EVERY 1 HOUR PRN, line flush, post meds or blood draw, Starting on Thu02/19/24 at 0756, for peripheral IV flush post IV meds, Cardiac Intra-procedure sodium chloride (PF) 0.9% PF flush 3 mL 3 mL, Intravenous, EVERY 8 HOURS, First dose on Thu02/19/24 at 0800, And Q1H PRN, to lock peripheral IV dormant line. , Cardiac Intra-procedure technetium sestamibi 2 UD per study (Tc99m MiBi) radioisotope injection 3-42 millicurie 3-42 millicurie, Intravenous, EVERY 2 HOURS, First dose on Thu02/19/24 at 0800, For 2 doses, Radioisotope, supplied by and administered by Nuclear Medicine. *HW* $Given 02/19/2024 8:50 AM [facility] 33 millicuries $Given 02/19/2024 7:27 AM [facility] 11 millicuries documented in this encounter Active and Recently Administered Medications Times are shown in [facility]. Scheduled Medication Order 02/17/2024 02/18/2024 02/19/2024 amLODIPine (NORVASC) tablet 10 mg 10 mg, Oral, DAILY, First dose on Thu02/19/24 at 0800 1010 ($Given - Provider: Neisha Joe RN) aspirin (ASA) tablet 325 mg (COMPLETED) 325 mg, Oral, ONCE, On Roseann 02/18/24 at 1730, For 1 dose 1732 ($Given - Provider: Michelet Mcdonald RN) aspirin EC tablet 81 mg 81 mg, Oral, DAILY, First dose on Thu02/19/24 at 0800, DO NOT CRUSH. 1010 ($Given - Provider: Neisha Joe RN) atorvastatin (LIPITOR) tablet 10 mg (CANCELED) 10 mg, Oral, AT BEDTIME, First dose on Roseann 11/14/24 at 2220 2244 ($Given - Provider: Ramon Montgomery, MABEL) atorvastatin (LIPITOR) tablet 40 mg 40 mg, Oral, AT BEDTIME, First dose (after last modification) on Thu02/19/24 at 2200 famotidine (PEPCID) tablet 10 mg 10 mg, Oral, 2 TIMES DAILY, First dose on Thu02/18/24 at 2220 2244 ($Given - Provider: Ramon Montgomery RN) 1010 ($Given - Provider: Neisha Joe RN) heparin loading dose for LOW INTENSITY TREATMENT * Give BEFORE starting heparin infusion (COMPLETED) 4,600 Units (rounded from 4,578 Units = 60 Units/kg 76.3 kg), Intravenous, ONCE, On Thu02/18/24 at 1730, For 1 dose, Infuse over 5 minutes. Low Intensity Heparin Treatment. Nurse to administer dose from existing infusion. If no infusion bag or syringe for this order is available, contact pharmacist to re-enter medication order. 1751 ($Given - Provider: Michelet Mcdonald RN) hydrochlorothiazide (HYDRODIURIL) tablet 25 mg 25 mg, Oral, DAILY, First dose on Thu02/19/24 at 0800 1010 ($Given - Provider: Neisha Joe, MABEL) lisinopril (ZESTRIL) tablet 40 mg 40 mg, Oral, DAILY, First dose on Thu02/19/24 at 0800, This therapy was substituted for benazepril (Lotensin) 40 mg daily. 1009 ($Given - Provider: Neisha Joe RN) potassium & sodium phosphates (NEUTRA-PHOS) Packet 1 packet (COMPLETED) 1 packet, Oral or Feeding Tube, EVERY 4 HOURS, First dose on Thu02/19/24 at 0350, For 3 doses, Phosphorus level 2-2.4 mg/dL Administer 1 packet of oral or feeding tubephosphorus replacement x 3 doses and recheck phosphorus level next AM. Ordered from the Phosphorus replacement order set., Phosphorus Replacement: Phosphorus level 2-2.4 mg/dL and Creatinine Clearance GREATER than or EQUAL to 30 mL/min, Recheck: Phosphorus level next AM 0426 ($Given - Provider: Jennifer Villegas RN)1009 ($Given - Provider: Neisha Joe, MABEL)1412 ($Given - Provider: Neisha Joe RN) potassium chloride mike ER (KLOR-CON M20) CR tablet 20 mEq (COMPLETED) 20 mEq, Oral, ONCE, On Roseann 02/18/24 at 1730, For 1 dose, DO NOT CRUSH 1747 ($Given - Provider: Michelet Mcdonald RN) potassium chloride mike ER (KLOR-CON M20) CR tablet 40 mEq (COMPLETED) 40 mEq, Oral, ONCE, On Thu02/19/24 at 0350, For 1 dose, Potassium level 3.1 - 3.4 mmol/L Ordered from the Potassium replacement order set. DO NOT CRUSH, Potassium Replacement: Potassium level 3.1-3.4 mmol/L, Recheck: Potassium level 4 hours AFTER last oral dose 0426 ($Given - Provider: Jennifer Villegas RN) regadenoson (LEXISCAN) injection 0.4 mg (COMPLETED) 0.4 mg, Intravenous, ONCE, On Thu02/19/24 at 0800, For 1 dose, Give by rapid IV injection (approximately over 10-15 seconds). Follow with a saline flush immediately after regadenoson administration, then follow with radioactive tracer (radiopharmaceutical agent)., Cardiac Intra-procedure 0846 ($Given - Provider: Kailey Reed RN) sodium chloride (PF) 0.9% PF flush 3 mL 3 mL, Intravenous, EVERY 8 HOURS, First dose on Thu02/19/24 at 0800, And Q1H PRN, to lock peripheral IV dormant line. , Cardiac Intra-procedure 1011 (Not Given - Provider: Neisha Jeo RN - Reason: IV Infusing)1600 (Not Given - Provider: Neisha Joe RN - Reason: IV Infusing) technetium sestamibi 2 UD per study (Tc99m MiBi) radioisotope injection 3-42 millicurie (COMPLETED) 3-42 millicurie, Intravenous, EVERY 2 HOURS, First dose on Thu02/19/24 at 0800, For 2 doses, Radioisotope, supplied by and administered by Nuclear Medicine. *HW* 0778 ($Given - Provider: Miguelito Blanchard)0850 ($Given - Provider: Marialuisa Fernando) Continuous Medication Order 02/17/2024 02/18/2024 02/19/2024 heparin 25,000 units in 0.45% NaCl 250 mL ANTICOAGULANT infusion (CANCELED) 0-5,000 Units/hr (0-50 mL/hr), Intravenous, CONTINUOUS, Starting on Roseann 02/18/24 at 1730, --Nurse to use Heparin Infusion ADULT Dose Adjustments by RN order set after EVERY heparin unfractionated Anti-Xa result to place further orders (for bolus if needed, infusion adjustment if needed, and ordering next lab)- Starting Infusion Rate = 900 Units/hr (12 units/kg/hr). (Ordered: 02/18/2024) Low Intensity Heparin Treatment WITH Boluses. GOAL: Heparin Anti-Xa (10a) LEVEL = 0.25-0.5 IF HEPARIN INFUSION HELD FOR PROCEDURE: Restart heparin infusion at previous rate (no bolus needed). Nurse to place a one-time unfractionated heparin Anti-Xa lab order timed for 6 hours after heparin infusion was restarted., Heparin Therapy Type: Low Intensity Heparin Infusion (Anti Xa 0.25-0.5), Initial Set-up verified by: leonardo mcdonald 1751 ($New Bag - Provider: Michelet Mcdonald, RN)2053 (Stopped - Provider: Anette Balderas RN) heparin 25,000 units in 0.45% NaCl 250 mL ANTICOAGULANT infusion 0-5,000 Units/hr (0-50 mL/hr), Intravenous, CONTINUOUS, Starting on Roseann 02/18/24 at 1855, --Nurse to use Heparin Infusion ADULT Dose Adjustments by RN order set after EVERY heparin unfractionated Anti-Xa result to place further orders (for bolus if needed, infusion adjustment if needed, and ordering next lab)- Starting Infusion Rate = 900 Units/hr (12 units/kg/hr). (Ordered: 02/18/2024) Low Intensity Heparin Treatment WITH Boluses. GOAL: Heparin Anti-Xa (10a) LEVEL = 0.25-0.5 IF HEPARIN INFUSION HELD FOR PROCEDURE: Restart heparin infusion at previous rate (no bolus needed). Nurse to place a one-time unfractionated heparin Anti-Xa lab order timed for 6 hours after heparin infusion was restarted., Heparin Therapy Type: Low Intensity Heparin Infusion (Anti Xa 0.25-0.5) 2052 (Rate/Dose Verify - Provider: Anette Balderas RN) 347 (Rate/Dose Verify - Provider: Jennifer Villegas RN - Comment: no change)1012 (Rate/Dose Verify - Provider: Neisha Joe, MABEL)1514 ($New Bag - Provider: Neisha Joe RN) PRN Medication Order 02/17/2024 02/18/2024 02/19/2024 albuterol (PROVENTIL HFA/VENTOLIN HFA) inhaler 2 puff, Inhalation, EVERY 5 MIN PRN, other, may repeat every 5 minutes x 3 doses if needed, Starting on Thu02/19/24 at 0756, For 3 doses, Max total three doses Indications: - COPD - severe bronchospasm (notify the procedural provider that Albuterol was administered) Check the dose counter on the inhaler to ensure there are doses remaining before administering. Prime by spraying into the air 4 times prior to first use and if not used within 2 weeks., Cardiac Intra-procedure alum & mag hydroxide-simethicone (MAALOX) suspension 30 mL 30 mL, Oral, EVERY 4 HOURS PRN, indigestion, heartburn, Starting on Roseann 02/18/24 at 1851, Shake well. aminophylline 50-100 mg 50-100 mg, Intravenous, ONCE PRN, other, For adverse effects (flushing, headache, hypotension, nausea) lasting 4 minutes or longer, or at onset of severe regadenoson side effects (angina, abdominal discomfort, chest pain/discomfort, dizziness/syncope, dyspnea/wheezing, dysrhythmia, severe bronchospasms, second or third degree heart block, ST segment depression), Starting on Thu02/19/24 at 0756, For 1 dose, For Stress Testing with nuclear medicine: Give 50mg slow IV injection (over 30-60 seconds, not to exceed 50mg over 30 seconds). May repeat x 1 for persistent symptoms lasting 5 minutes after initial aminophylline dose. Maximum dose is 250mg in 24 hours. For Stress Testing with MRI or other modalities: Give 100mg slow IV injection (over 30-60 seconds, not to exceed 50mg over 30 seconds). May repeat x 1 for persistent symptoms lasting 5 minutes after initial aminophylline dose. Maximum dose is 250mg in 24 hours. Notify procedural provider that aminophylline was administered and reason for administration. Hold aminophylline if patient has a history of seizure disorder., Cardiac Intra-procedure caffeine (NO-DOZE) tablet 200 mg 200 mg, Oral, ONCE PRN, If aminophylline not available, for mild regadenoson side effects lasting 4 minutes or longer (flushing, headache, hypotension, nausea), Starting on Thu02/19/24 at 0756, For 8 hours, Cardiac Intra-procedure caffeine citrate (CAFCIT) injection 60 mg 60 mg, Intravenous, ONCE PRN, if aminophylline not available, at onset of severe regadenoson side effects (angina, abdominal discomfort, chest pain/discomfort, dizziness/syncope, dyspnea/wheezing, dysrhythmia, severe bronchospasms, second or third degree heart block, ST segment depression), Starting on Thu02/19/24 at 0756, For 8 hours, Give slow IV push over 3-5 minutes. May be given undiluted., Cardiac Intra-procedure diazepam (VALIUM) tablet 5 mg 5 mg, Oral, EVERY 30 MIN PRN, anxiety, Starting on Thu02/19/24 at 0756, For 2 doses, LORazepam (ATIVAN) preferred over diazepam (Valium) for patients over 65 per recommendation on age adjusted medication policy. Give 1 hour prior to the procedure, if the patient has not received a dose on the patient care unit or at home prior to arrival. May repeat 5 mg dose every 30 minutes x 1. MAX total dose of 10 mg. Hold if respiratory rate less than 12 or systolic blood pressure less than 90 mmHg., Cardiac Intra-procedure HOLD: Caffeine containing medications 12 hours prior to the procedure Medication(s) to hold: Caffeine containing medications: Anacin, Excedrin, NoDoz, Vivarin, Midol, Valorin, Parameter for hold (doses,days,conditions) : Hold before Procedure or Test, Hours or days to hold med before/after procedure/surgery: 12 hours prior to the procedure, HOLD, Starting on Thu02/18/24 at 1851, Until Thu02/19/24 at 1719, Cardiac Pre-procedure HOLD: dipyridamole (PERSANTINE) or aspirin/dipyridamole (AGGRENOX) 48 hours prior to the procedure Medication(s) to hold: Dipyridamole (Persantine) or aspirin/dipyridamole (Aggrenox), Parameter for hold (doses,days,conditions) : Hold before Procedure or Test, Hours or days to hold med before/after procedure/surgery: 48 hours prior to the procedure, HOLD, Starting on Thu02/18/24 at 1851, Until Thu02/19/24 at 1719, Cardiac Pre-procedure HOLD: theophylline or aminophylline 12 hours prior to the procedure Medication(s) to hold: theophylline or aminophylline, Parameter for hold (doses,days,conditions) : Hold before Procedure or Test, Hours or days to hold med before/after procedure/surgery: 12 hours prior to the procedure, HOLD, Starting on Thu02/18/24 at 1851, Until Thu02/19/24 at 1719, Cardiac Pre-procedure IF patient diabetic - HOLD: ALL ORAL HYPOGLYCEMICS and include: glipizide, glyburide, glimepiride, gliclazide, metformin, any metformin containing medication, on day of the procedure Medication(s) to hold: ALL ORAL HYPOGLYCEMICS (Full list in Admin Instructions), Parameter for hold (doses,days,conditions) : Hold before Procedure or Test, Hours or days to hold med before/after procedure/surgery: the day of the procedure, HOLD, Starting on Thu02/18/24 at 1851, Until Thu02/19/24 at 1719, ALL ORAL HYPOGLYCEMICS and include glipizide, glyburide, glimepiride, gliclazide, metformin (GLUCOPHAGE, GLUMETZA, FORTAMET, RIOMET) and metformin containing medications: alogliptin/metformin (KAZANO), glipizide/metformin (METAGLIP), glyburide/metformin (GLUCOVANCE), rosiglitazone/metformin (AVANDAMET), dapagliflozin/metformin (XIGDUO XR), sitagliptin/metformin (JANUMET, JANUMET XR), linagliptin/metformin (JENTADUETO), repaglinide/metformin (PRANDIMET), saxagliptin/metformin (KOMBIGLYZE XR), canagliflozin/metformin (INVOKAMET), and pioglitazone/metformin (ACTOPLUS MET, ACTOPLUS MET XR)., Cardiac Pre-procedure lidocaine (LMX4) cream Topical, EVERY 1 HOUR PRN, mild pain, with VAD insertion or accessing implanted port,, Starting on Thu02/19/24 at 0756, For 1 dose, Do NOT give if patient has a history of allergy to any local anesthetic or any liss product. Apply 30 min prior to VAD insertion or port access. MAX Dose: 2.5 gm ( of 5 gm tube), Cardiac Intra-procedure lidocaine 1 % 1 mL 1 mL, Other, EVERY 1 HOUR PRN, mild pain with VAD insertion or accessing implanted port., Starting on Thu02/19/24 at 0756, Do NOT give if patient has a history of allergy to any local anesthetic or any liss product. MAX dose 1 mL subcutaneous OR intradermal in divided doses., Cardiac Intra-procedure LORazepam (ATIVAN) tablet 0.5 mg 0.5 mg, Oral, EVERY 30 MIN PRN, anxiety, Starting on Thu02/19/24 at 0756, For 2 doses, Give 1 hour prior to the procedure. LORazepam (ATIVAN) preferred over diazepam (Valium) for patients over 65 per recommendation on age adjusted medication policy May repeat 0.5 mg dose every 30 minutes x 1. Max total dose of 1 mg. Hold if respiratory rate is less than 12 or systolic blood pressure less than 90 mmHg., Cardiac Intra-procedure nitroGLYcerin (NITROSTAT) sublingual tablet 0.4 mg 0.4 mg, Sublingual, EVERY 5 MIN PRN, chest pain, Starting on Thu02/19/24 at 0756, For 8 hours, Max 3 doses., Cardiac Intra-procedure sodium chloride (PF) 0.9% PF flush 1-10 mL 1-10 mL, Intravenous, EVERY 10 MIN PRN, other, for peripheral IV flush post IV meds, Starting on Roseann 02/18/24 at 1851, Cardiac Pre-procedure sodium chloride (PF) 0.9% PF flush 3 mL 3 mL, Intravenous, EVERY 1 HOUR PRN, line flush, post meds or blood draw, Starting on Thu02/19/24 at 0756, for peripheral IV flush post IV meds, Cardiac Intra-procedure traZODone (DESYREL) tablet 100-200 mg 100-200 mg, Oral, AT BEDTIME PRN, sleep, Starting on Roseann 02/18/24 at 1851 documented in this encounter Care Teams Talent Associate Relationship Specialty Start Date End Date Marcelo Smith [address] [address] PCP - General Family Practice 02/19/18 documented as of this encounter
--- OUTSIDE RECORDS SUMMARY | 2024-02-22 15:30 | XMS_ITS | Referral Summary ---
Author Organization [place] Address [facility] [place] [address] Care Team Providers Care Glass Presser Name Role Phone Marcelo Smith Primary Care Provider Encounters Date Type Department Care Team Description 02/18/2024 2:26 PM PAINTING DEPARTMENT SUPERVISOR - 02/19/2024 3:19 PM PAINTING DEPARTMENT SUPERVISOR [facility] Emergency Dept [address] [place] [address] Dia Reilly MD [place], Karl R, MD NSTEMI (non-ST elevated myocardial infarction) (H); Hypokalemia Discharge Disposition: Another Health Care Institution with Planned Hospital IP Readmission 02/18/2024 Travel from Last 3 Months Allergies No known active allergies Medications aspirin [...] NSTEMI (non-ST elevated myocardial infarction) 1 04/19/2023 Social History Tobacco Use Types Packs/Day Years [...] on file Legal Sex Male 3:40 AM PAINTING DEPARTMENT SUPERVISOR Gender Identity Not on file Sexual Orientation Not on file Last Filed Vital Signs Vital Sign Reading Time Taken Comments Blood Pressure 161/95 02/19/2024 10:09 AM PAINTING DEPARTMENT SUPERVISOR Pulse 94 02/19/2024 10:09 AM PAINTING DEPARTMENT SUPERVISOR Temperature 36.8 C (98.2 F) 02/18/2024 2:20 PM PAINTING DEPARTMENT SUPERVISOR Respiratory Rate 16 02/19/2024 10:09 AM PAINTING DEPARTMENT SUPERVISOR Oxygen Saturation 98% 02/19/2024 10:09 AM PAINTING DEPARTMENT SUPERVISOR Inhaled Oxygen Concentration - - Weight 76.3 kg (168 lb 3.4 oz) 02/18/2024 2:20 P M PAINTING DEPARTMENT SUPERVISOR Height 166.4 cm (5' 5.5) 02/18/2024 2:20 PM PAINTING DEPARTMENT SUPERVISOR Body Mass Index 27.57 02/18/2024 2:20 PM PAINTING DEPARTMENT SUPERVISOR Plan of Treatment Not on file Procedures Procedure Name Priority Date/Time Associated Diagnosis Comments ECHO COMPLETE Routine 02/19/2024 11:17 AM PAINTING DEPARTMENT SUPERVISOR HEPARIN UNFRACTIONATED ANTI XA LEVEL STAT 02/19/2024 9:52 AM PAINTING DEPARTMENT SUPERVISOR POTASSIUM STAT 02/19/2024 9:52 AM PAINTING DEPARTMENT SUPERVISOR PHOSPHORUS STAT 02/19/2024 9:52 AM PAINTING DEPARTMENT SUPERVISOR NM MPI WITH LEXISCAN Routine 02/19/2024 9:39 AM PAINTING DEPARTMENT SUPERVISOR HEPARIN UNFRACTIONATED ANTI XA LEVEL STAT 02/19/2024 2:55 AM PAINTING DEPARTMENT SUPERVISOR MAGNESIUM STAT 02/19/2024 2:55 AM PAINTING DEPARTMENT SUPERVISOR POTASSIUM STAT 02/19/2024 2:55 AM PAINTING DEPARTMENT SUPERVISOR PHOSPHORUS STAT 02/19/2024 2:55 AM PAINTING DEPARTMENT SUPERVISOR CBC WITH PLATELETS STAT 02/19/2024 12 :22 AM PAINTING DEPARTMENT SUPERVISOR HEPATIC FUNCTION PANEL Add-On 5:47 PM PAINTING DEPARTMENT SUPERVISOR LIPASE Add-On 02/18/2024 5:47 PM PAINTING DEPARTMENT SUPERVISOR TROPONIN T, HIGH SENSITIVITY STAT 02/18/2024 5:47 PM PAINTING DEPARTMENT SUPERVISOR XR CHEST 2 VIEWS STAT 02/18/2024 3:03 PM PAINTING DEPARTMENT SUPERVISOR CBC WITH PLATELETS & DIFFERENTIAL STAT 02/18/2024 2:32 PM PAINTING DEPARTMENT SUPERVISOR EXTRA RED TOP TUBE STAT 02/18/2024 2: 32 PM PAINTING DEPARTMENT SUPERVISOR EXTRA BLUE TOP TUBE STAT 02/18/2024 2 :32 PM PAINTING DEPARTMENT SUPERVISOR CBC WITH PLATELETS AND DIFFERENTIAL STAT 02/18/2024 2:32 PM PAINTING DEPARTMENT SUPERVISOR EXTRA TUBE STAT 02/18/2024 2:32 PM PAINTING DEPARTMENT SUPERVISOR TROPONIN T, HIGH SENSITIVITY STAT 02/18/2024 2:32 PM PAINTING DEPARTMENT SUPERVISOR BASIC METABOLIC PANEL STAT 02/18/2024 2:32 PM PAINTING DEPARTMENT SUPERVISOR EKG 12-LEAD, TRACING ONLY STAT 02/18/2024 2:25 PM PAINTING DEPARTMENT SUPERVISOR LIPID PROFILE Routine 02/06/2022 11:30 AM CDT Hypercholesterolem ia from Last 3 Months or Most Recently Relevant to Health Maintenance Results * ECHO COMPLETE (02/19/2024 11:17 AM PAINTING DEPARTMENT SUPERVISOR) LVEF 60% CARDIOLOGY RESULTS Anatomical Region Laterality Modality Echocardiography 02/19/2024 11:4 4 AM PAINTING DEPARTMENT SUPERVISOR Narrative 02/19/2024 11:35 AM PAINTING DEPARTMENT SUPERVISOR [id number]^MARIA EUGENIA^SEKOU^[facility] Echocardiography Laboratory [address] [place] [address] Name: MOHAMUD GRANADOS : 1955 Study Date: 02/19/2024 11:44 AM Age: 69 yrs Gender: Male Patient Location: [facility] Reason For Study: Chest Pain, Chest Pressure, [...] Procedure Note Trenton Arevalo MD - 02/19/2024 [id number]^MARIA EUGENIA^SEKOU^[facility] Echocardiography Laboratory [address] [place] [address] Name: MOHAMUD GRANADOS : 1955 Study Date: 02/19/2024 11:44 AM Age: 69 yrs Gender: Male Patient Location: [facility] Reason For Study: Chest Pain, Chest Pressure, [...] Unfractionated Anti Xa Level (02/19/2024 9:52 AM PAINTING DEPARTMENT SUPERVISOR) Only the most recent of2 resultswithin the time period is included. Anti Xa Unfractionated Heparin 0.33 For Reference Range, See Comment IU/mL 02/19/2024 10:16 AM PAINTING DEPARTMENT SUPERVISOR LABORATORY Blood STRUCTURE OF RIGHT HAND / Unknown Venipuncture / Unknown 02/19/2024 9:52 AM PAINTING DEPARTMENT SUPERVISOR 02/19/2024 10:04 AM PAINTING DEPARTMENT SUPERVISOR Narrative LABORATORY - 02/19/2024 10:16 AM PAINTING DEPARTMENT SUPERVISOR Therapeutic Range: UFH: 0.25-0.50 IU/mL for low intensity dosing, 0.30-0.70 IU/mL for high intensity dosing DVT and PE. This test is not validated for other direct factor X inhibitors (e.g. rivaroxaban, apixaban, edoxaban, betrixaban, fondaparinux) and should not be used for monitoring of other medications. us Sekou Elizalde MD LAB - BLOOD ORDERABLES Final Re sult LABORATORY [facility] Acute Care Lab [address] [facility] Lab (1st floor, no room number) [place] [address], [facility] * Potassium (02/19/2024 9:52 AM PAINTING DEPARTMENT SUPERVISOR) Only the most recent of2 resultswithin the time period is included. Potassium 3.8 3.4 - 5.3 mmol/L 02/19/2024 10:23 AM PAINTING DEPARTMENT SUPERVISOR LABORATORY Blood STRUCTURE OF RIGHT HAND / Unknown Venipuncture / Unknown 02/19/2024 9:52 AM PAINTING DEPARTMENT SUPERVISOR 02/19/2024 10:04 AM PAINTING DEPARTMENT SUPERVISOR us Sekou Elizalde MD LAB - BLOOD ORDERABLES Final Re sult Performing Organization Address [facility] Co de Phone Number [facility] Acute Care Lab [address] Lab (1st floor, no room number) [place] [phone] [place] [address] * (ABNORMAL) Phosphorus (02/19/2024 9:52 AM PAINTING DEPARTMENT SUPERVISOR) Only the most recent of2 resultswithin the time period is included. Phosphorus 1.7(L) 2.5 - 4.5 mg/dL 02/19/2024 10:23 AM PAINTING DEPARTMENT SUPERVISOR LABORATORY Blood STRUCTURE OF RIGHT HAND / Unknown Venipuncture / Unknown 02/19/2024 9:52 AM PAINTING DEPARTMENT SUPERVISOR 02/19/2024 10:04 AM PAINTING DEPARTMENT SUPERVISOR us Sekou Elizalde MD LAB - BLOOD ORDERABLES Final Re sult Performing Organization Address [facility] Co de Phone Number [facility] Care Lab [address] Lab (1st floor, no room number) [place] [phone] * NM Lexiscan stress test (nuc card) (02/19/2024 9:39 AM PAINTING DEPARTMENT SUPERVISOR) Target HR 152 RADIANT Baseline Systolic BP 124 RADIANT Baseline Diastolic BP 86 RADIANT Last Stress Systolic BP 167 RADIANT Last Stress Diastolic BP 98 RADIANT Baseline HR 88 bpm RADIANT Max HR 101 RADIANT Max Predicted HR 66 % RADIANT Rate Pressure Product 16,867.0 RADIANT Anatomical Region Laterality Modality Chest Nuclear Medicine Narrative 02/19/2024 11:45 AM PAINTING DEPARTMENT SUPERVISOR The nuclear stress test is abnormal. There [...] other segments are normal. Sekou Elizalde MD [facility] ORDERABLES Final Result * Magnesium (02/19/2024 2:55 AM PAINTING DEPARTMENT SUPERVISOR) Magnesium 1.9 1.7 - 2.3 mg/dL 02/19/2024 3:16 AM PAINTING DEPARTMENT SUPERVISOR [facility] LABORATORY Blood STRUCTURE OF RIGHT HAND / Unknown Venipuncture / Unknown 02/19/2024 2:55 AM PAINTING DEPARTMENT SUPERVISOR 02/19/2024 2:58 AM PAINTING DEPARTMENT SUPERVISOR us Sekou Elizalde MD LAB - BLOOD ORDERABLES Final Re sult RH LABORATORY [facility] Acute Care Lab [address] Lab (1st floor, no room number) [place] [address] * (ABNORMAL) CBC with platelets (02/19/2024 12:22 AM PAINTING DEPARTMENT SUPERVISOR) Pathologist [facility] WBC Count 7.8 4.0 - 11.0 10e3/uL 02/19/2024 12:26 AM PAINTING DEPARTMENT SUPERVISOR [facility] LABORATORY RBC Count 4.12(L) 4.40 - 5.90 10e6/uL 02/19/2024 12:26 AM PAINTING DEPARTMENT SUPERVISOR [facility] LABORATORY Hemoglobin 13.6 13.3 - 17.7 g/dL 02/19/2024 12:26 AM PAINTING DEPARTMENT SUPERVISOR [facility] LABORATORY Hematocrit 38.5(L) 40.0 - 53.0 % 02/19/2024 12:26 AM PAINTING DEPARTMENT SUPERVISOR [facility] LABORATORY MCV 93 78 - 100 fL 02/19/2024 12:26 AM PAINTING DEPARTMENT SUPERVISOR [facility] LABORATORY MCH 33.0 26.5 - 33.0 pg 02/19/2024 12:26 AM PAINTING DEPARTMENT SUPERVISOR [facility] LABORATORY MCHC 35.3 31.5 - 36.5 g/dL 02/19/2024 12:26 AM PAINTING DEPARTMENT SUPERVISOR [facility] LABORATORY RDW 13.2 10.0 - 15.0 % 02/19/2024 12:26 AM PAINTING DEPARTMENT SUPERVISOR [facility] LABORATORY Platelet Count 388 150 - 450 10e3/uL 02/19/2024 12:26 AM PAINTING DEPARTMENT SUPERVISOR [facility] LABORATORY Blood STRUCTURE OF RIGHT HAND / Unknown Venipuncture / Unknown 02/19/2024 12:22 AM PAINTING DEPARTMENT SUPERVISOR 02/19/2024 12:25 AM PAINTING DEPARTMENT SUPERVISOR us Sekou Elizalde MD LAB - BLOOD ORDERABLES Final Re sult RH LABORATORY [facility] Acute Care Lab [address] Lab (1st floor, no room number) [place] [address] * (ABNORMAL) Troponin T, High Sensitivity (02/18/2024 5:47 PM PAINTING DEPARTMENT SUPERVISOR) Only the most recent of2 resultswithin the time period is included. Troponin T, High Sensitivity 180(HH) <=22 ng/L 02/18/2024 6:33 PM PAINTING DEPARTMENT SUPERVISOR RH LABORATORY Comment: Either a High Sensitivity [...] Unknown Venipuncture / Unknown 02/18/2024 5:47 PM PAINTING DEPARTMENT SUPERVISOR 02/18/2024 5:55 PM PAINTING DEPARTMENT SUPERVISOR us Dia Reilly MD LAB - BLOOD ORDERABLES F inal Result [facility] Acute Care Lab [address] Lab (1st floor, no room number) [place] [phone] * Lipase (02/18/2024 5:47 PM PAINTING DEPARTMENT SUPERVISOR) Lipase 59 13 - 60 U/L 02/18/2024 6:55 PM PAINTING DEPARTMENT SUPERVISOR LABORATORY Blood STRUCTURE OF RIGHT HAND / Unknown Venipuncture / Unknown 02/18/2024 5:47 PM PAINTING DEPARTMENT SUPERVISOR 02/18/2024 5:55 PM PAINTING DEPARTMENT SUPERVISOR us Dia Reilly MD LAB - BLOOD ORDERABLES F inal Result [facility] Acute Care Lab [address] Lab (1st floor, no room number) [place] [address] * Hepatic panel (02/18/2024 5:47 PM PAINTING DEPARTMENT SUPERVISOR) Protein Total 6.8 6.4 - 8.3 g/dL 02/18/2024 6:55 PM PAINTING DEPARTMENT SUPERVISOR RH LABORATORY Albumin 4.3 3.5 - 5.2 g/dL 02/18/2024 6:55 PM PAINTING DEPARTMENT SUPERVISOR [facility] LABORATORY Bilirubin Total 0.7 <=1.2 mg/dL 02/18/2024 6:55 PM PAINTING DEPARTMENT SUPERVISOR [facility] LABORATORY Alkaline Phosphatase 69 40 - 150 U/L 02/18/2024 6:55 PM PAINTING DEPARTMENT SUPERVISOR [facility] LABORATORY AST 27 0 - 45 U/L 02/18/2024 6:55 PM PAINTING DEPARTMENT SUPERVISOR RH LABORATORY ALT 29 0 - 70 U/L 02/18/2024 6:55 PM PAINTING DEPARTMENT SUPERVISOR LABORATORY Bilirubin Direct <0.20 0.00 - 0.30 mg/dL 02/18/2024 6:55 PM PAINTING DEPARTMENT SUPERVISOR LABORATORY Blood STRUCTURE OF RIGHT HAND / Unknown Venipuncture / Unknown 02/18/2024 5:47 PM PAINTING DEPARTMENT SUPERVISOR 02/18/2024 5:55 PM PAINTING DEPARTMENT SUPERVISOR Dia Reilly MD LAB - BLOOD ORDERABLES F inal Result LABORATORY [facility] Acute Care Lab [address] Lab (1st floor, no room number) [place] [address] * XR Chest 2 Views (02/18/2024 3:03 PM PAINTING DEPARTMENT SUPERVISOR) Anatomical Region Laterality Modality Chest Computed Radiogr aphy Impressions 02/18/2024 3:07 PM PAINTING DEPARTMENT SUPERVISOR IMPRESSION: Cardiac silhouette is within normal limits. Aortic arch calcification. No focal airspace consolidation. No pleural effusion or discoid pneumothorax. Radiopaque surgical material projects in the upper abdomen. JAMES REHMAN MD Narrative 02/18/2024 3:07 PM PAINTING DEPARTMENT SUPERVISOR CHEST TWO VIEWS 02/18/2024 3:03 PM HISTORY: chest pain COMPARISON: None. Procedure Note James Rehman MD - 02/18/2024 CHEST TWO VIEWS 02/18/2024 3:03 PM HISTORY: chest pain COMPARISON: None. IMPRESSION: Cardiac silhouette is within normal limits. Aortic arch calcification. No focal airspace consolidation. No pleural effusion or discoid pneumothorax. Radiopaque surgical material projects in the upper abdomen. JAMES REHMAN MD us Dia Reilly MD IMG DIAGNOSTIC IMAGING O RDERABLES Final Result * Extra Red Top Tube (02/18/2024 2:32 PM PAINTING DEPARTMENT SUPERVISOR) [facility] Signature Hold Specimen [facility] 02/18/2024 3:47 PM PAINTING DEPARTMENT SUPERVISOR RH LABORATORY Blood BLOOD SPECIMEN / Unknown Venipuncture / Unknown 02/18/2024 2:32 PM PAINTING DEPARTMENT SUPERVISOR 02/18/2024 2:39 PM PAINTING DEPARTMENT SUPERVISOR us Dia Reilly MD LAB - BLOOD ORDERABLES F inal Result [facility] Lab [address] [facility] Lab (1st floor, no room number) [place] [phone] [place] [address] * Extra Blue Top Tube (02/18/2024 2:32 PM PAINTING DEPARTMENT SUPERVISOR) [facility] Signature Hold Specimen [facility] 02/18/2024 3:47 PM PAINTING DEPARTMENT SUPERVISOR RH LABORATORY Blood BLOOD SPECIMEN / Unknown Venipuncture / Unknown 02/18/2024 2:32 PM PAINTING DEPARTMENT SUPERVISOR 02/18/2024 2:39 PM PAINTING DEPARTMENT SUPERVISOR us Dia Reilly MD LAB - BLOOD ORDERABLES F inal Result [facility] Care Lab [address] Lab (1st floor, no room number) [place] [phone] * (ABNORMAL) CBC with platelets and differential (02/18/2024 2:32 PM PAINTING DEPARTMENT SUPERVISOR) [facility] WBC Count 8.1 4.0 - 11.0 10e3/uL 02/18/2024 2:44 PM PAINTING DEPARTMENT SUPERVISOR RH LABORATORY RBC Count 4.30(L) 4.40 - 5.90 10e6/uL 02/18/2024 2:44 PM PAINTING DEPARTMENT SUPERVISOR RH LABORATORY Hemoglobin 14.6 13.3 - 17.7 g/dL 02/18/2024 2:44 PM PAINTING DEPARTMENT SUPERVISOR RH LABORATORY Hematocrit 40.4 40.0 - 53.0 % 02/18/2024 2:44 PM PAINTING DEPARTMENT SUPERVISOR RH LABORATORY MCV 94 78 - 100 fL 02/18/2024 2:44 PM PAINTING DEPARTMENT SUPERVISOR [facility] LABORATORY MCH 34.0(H) 26.5 - 33.0 pg 02/18/2024 2:44 PM PAINTING DEPARTMENT SUPERVISOR [facility] LABORATORY MCHC 36.1 31.5 - 36.5 g/dL 02/18/2024 2:44 PM PAINTING DEPARTMENT SUPERVISOR [facility] LABORATORY RDW 13.4 10.0 - 15.0 % 02/18/2024 2:44 PM PAINTING DEPARTMENT SUPERVISOR [facility] LABORATORY Platelet Count 444 150 - 450 10e3/uL 02/18/2024 2:44 PM PAINTING DEPARTMENT SUPERVISOR [facility] LAB[facility]AT[facility] % Neutrophils 70 % 02/18/2024 2:44 PM PAINTING DEPARTMENT SUPERVISOR [facility] LAB[facility] % Lymphocytes 18 % 02/18/2024 2:44 PM PAINTING DEPARTMENT SUPERVISOR [facility] LAB[facility] % Monocytes 8 % 02/18/2024 2:44 PM PAINTING DEPARTMENT SUPERVISOR [facility] LAB[facility] % Eosinophils 2 % 02/18/2024 2:44 PM PAINTING DEPARTMENT SUPERVISOR [facility] LAB[facility] % Basophils 1 % 02/18/2024 2:44 PM PAINTING DEPARTMENT SUPERVISOR [facility] LAB[facility]AT[facility] % Immature Granulocytes 0 % 02/18/2024 2:44 PM PAINTING DEPARTMENT SUPERVISOR [facility] LABORATORY NRBCs per 100 WBC 0 <1 /100 024 2:44 PM PAINTING DEPARTMENT SUPERVISOR [facility] LABORATORY Absolute Neutrophils 5.7 1.6 - 8.3 10e3/uL 02/18/2024 2:44 PM PAINTING DEPARTMENT SUPERVISOR [facility] LABORATORY Absolute Lymphocytes 1.5 0.8 - 5.3 10e3/uL 02/18/2024 2:44 PM PAINTING DEPARTMENT SUPERVISOR [facility] LABORATORY Absolute Monocytes 0.7 0.0 - 1.3 10e3/uL 02/18/2024 2:44 PM PAINTING DEPARTMENT SUPERVISOR [facility] LABORATORY Absolute Eosinophils 0.2 0.0 - 0.7 10e3/uL 02/18/2024 2:44 PM PAINTING DEPARTMENT SUPERVISOR [facility] LABORATORY Absolute Basophils 0.1 0.0 - 0.2 10e3/uL 02/18/2024 2:44 PM PAINTING DEPARTMENT SUPERVISOR LABORATORY Absolute Immature Granulocytes 0.0 <=0.4 10e3/uL 02/18/2024 2:44 PM PAINTING DEPARTMENT SUPERVISOR LABORATORY Absolute NRBCs 0.0 10e3/uL 02/18/2024 2:44 PM PAINTING DEPARTMENT SUPERVISOR LABORATORY Blood BLOOD SPECIMEN / Unknown Venipuncture / Unknown 02/18/2024 2:32 PM PAINTING DEPARTMENT SUPERVISOR 02/18/2024 2:39 PM PAINTING DEPARTMENT SUPERVISOR Dia Reilly MD LAB - BLOOD ORDERABLES F inal Result LABORATORY [facility] Acute Care Lab [address] [facility] Lab (1st floor, no room number) [place] [address] * (ABNORMAL) Basic metabolic panel (02/18/2024 2:32 PM PAINTING DEPARTMENT SUPERVISOR) Sodium 138 135 - 145 mmol/L 02/18/2024 3:01 PM [facility] LABOR[facility] Potassium 3.3(L) 3.4 - 5.3 mmol/L 02/18/2024 3:01 PM [facility] Chloride 99 98 - 107 mmol/L 02/18/2024 3:01 PM [facility] Carbon Dioxide (CO2) 24 22 - 29 mmol/L 02/18/2024 3:01 PM [facility] Anion Gap 15 7 - 15 mmol/L 02/18/2024 3:01 PM [facility] Urea Nitrogen 11.9 8.0 - 23.0 mg/dL 02/18/2024 3:01 PM [facility] Creatinine 0.72 0.67 - 1.17 mg/dL 02/18/2024 3:01 PM [facility] GFR Estimate >90 >60 mL/min/1.7 3m2 02/18/2024 3:01 PM [facility] Comment:eGFR calculated usin 2020 CKD-EPI equation. Calcium 9.6 8.8 - 10.4 mg/dL 02/18/2024 3:01 PM [facility] Comment:Reference intervals for this test were updated on 10/20/2023 to reflect our healthy population more accurately. There may be differences in the flagging of prior results with similar values performed with this method. Those prior results can be interpreted in the context of the updated reference intervals. Glucose 127(H) 70 - 99 mg/dL 02/18/2024 3:01 PM PAINTING DEPARTMENT SUPERVISOR LABORATORY Blood BLOOD SPECIMEN / Unknown Venipuncture / Unknown 02/18/2024 2:32 PM PAINTING DEPARTMENT SUPERVISOR 02/18/2024 2:39 PM PAINTING DEPARTMENT SUPERVISOR Dia Reilly MD LAB - BLOOD ORDERABLES F inal Result LABORATORY [facility] Acute Care Lab [address] Lab (1st floor, no room number) [place] [address] * EKG 12-lead, tracing only (02/18/2024 2:25 PM PAINTING DEPARTMENT SUPERVISOR) Systolic Blood Pressure mmHg RADIOLOGY RESULTS Diastolic Blood Pressure mmHg RADIOLOGY RESULTS Ventricular Rate 86 BPM RAD IOLOGY RESULTS Atrial Rate 86 BPM RADIOLOG Y RESULTS MO Interval 160 ms RADIOLOG Y RESULTS QRS Duration 76 ms RADIOLO GY RESULTS QT 378 ms RADIOLOGY RESULTS QTc 452 ms RADIOLOGY RESULTS P [place] 55 degrees RADIOLOGY RESULTS R AXIS 65 degrees RADIOLOGY RESULTS T [place] 83 degrees RADIOLOGY RESULTS Interpretation ECG Sinus rhythm Nonspecific ST and T wave abnormality Abnormal ECG No previous ECGs available Unconfirmed report - interpretation of this ECG is computer generated - see medical record for final interpretation Confirmed by - EMERGENCY ROOM, PHYSICIAN ([id number]), editor in chief newspaper Brady Green ([id number]) on 02/18/2024 2:42:16 PM RADIOLOGY RESULTS 02/18/2024 2:25 PM PAINTING DEPARTMENT SUPERVISOR 02/18/2024 2:42 PM PAINTING DEPARTMENT SUPERVISOR Dia Reilly MD ECG ORDERABLES Edited R [...] 59 <130 mg/dL 02/06/2022 12:24 PM CDT [facility] LABORATORY Patient Fasting > 8hrs? Unknown 02/06/2022 [...] Greater than or equal to 220 mg/dL us Marvin Dailey MD LAB - BLOOD ORDERABLES Final Result LABORATORY [facility] Acute [facility] Lab [address] 1st floor, [address] [place] [address], [place] [phone] from Last 3 Months or Most Recently Relevant to Health Maintenance Insurance MEDICARE Advance Directives For more information, please contact: [phone] * Full Code (Latest Code Status on File) Date Activated Date Inactivated Comments 02/18/2024 6:51 PM 02/19/2024 5:19 PM All basic and advanced life-sustaining interventions are performed as appropriate Question Answer Comments Code status determined by: Discussion with patie nt/ legal decision maker Care Teams Glass Presser Relationship Specialty Start Date End Date Marcelo Smith [place] [id number] PCP - General Family Practice 02/19/18
--- OUTSIDE RECORDS SUMMARY | 2024-02-22 15:31 | XMS_ITS | Clinical Summary ---
Author Organization [facility] Address [place], [place] [address] Care Team Providers Care Tool Or Die Drawing Checker Name Role Phone Sunni Brewer MD Primary Care Provider [phone] Allergies No known active allergies Medications Medication Sig Dispensed Refills Start Date End Date Status Benazepril HCl 40 mg tabletIndication s:Hypertension Take 1 tablet by mouth once daily. For blood pressure. 90 tablet 1 03/16/2017 Active aspirin (ASPIR-81) 81 mg enteric coated tablet Take 1 tablet by mouth once daily with a meal. 0 03/16/2017 Active famotidine (PEPCID) 10 mg tablet Take 1 tablet by mouth 2 times daily. 0 03/16/2017 Active traMADol (ULTRAM) 50 mg tabletIndication s:Chronic hip pain, left Take 1 tablet by mouth every 6 hours if needed for Pain. For pain, use least amount possible. 30 tablet 04/13/2017 Active hydroCHLOROthiaz rafael (HCTZ) 25 mg tabletIndication s:Hypertension Take 1 tablet by mouth once daily. 30 tablet 07/21/2017 Active amLODIPine (NORVASC) 10 mg tablet Take 10 mg by mouth once daily. 10/19/2017 Active omeprazole (PRILOSEC) 20 mg Delayed-Release capsule Take 20 mg by mouth two times daily before meals. Active traZODone (DESYREL) 100 mg tablet Take 100-200 mg by mouth at bedtime. Active multivitamins-mi nerals-lutein (CENTRUM SILVER) tab tablet Take 1 Tablet by mouth once daily. Active carvediloL (COREG) 25 mg tablet Take 37.5 mg by mouth two times daily with meals. Active atorvastatin (LIPITOR) 40 mg tabletIndication s:Hypercholester olemia Take 1 Tablet (40 mg) by mouth once daily in the evening. 30 Tablet 02/20/2024 Active isosorbide mononitrate (IMDUR) 30 mg extended release tablet 24 HourIndications: Heart disease Take 1 Tablet (30 mg) by mouth once daily. 30 Tablet 02/21/2024 Active nitroglycerin (NITROSTAT) 0.4 mg sublingual tabletIndication s:Chest pain, unspecified type Place 1 Tablet (0.4 mg) under the tongue every 5 minutes if needed for Chest pain 1st choice (Hold for SBP less than 90 mmHg.). Up to 3 tablets in 15 minutes. 30 Tablet 02/20/2024 Active clopidogreL (PLAVIX) 75 mg tabletIndication s:Heart disease Take 1 Tablet (75 mg) by mouth once daily. 30 Tablet 02/20/2024 Active zolpidem (AMBIEN) 10 mg tabletIndication s:Insomnia, idiopathic Take 1 tablet by mouth at bedtime if needed for Sleep. Take least amount possible. 30 tablet 03/16/2017 4 Discontinued(Pha rmacist change per medication history (E-cancel not sent)) carvedilol (COREG) 25 mg tabletIndication s:Hypertension Take 1 tablet by mouth 2 times daily with meals. For blood pressure and heart. 180 tablet 1 03/16/2017 4 Discontinued(Pha rmacist change per medication history (E-cancel not sent)) clopidogrel (PLAVIX) 75 mg tabletIndication s:Heart disease Take 1 tablet by mouth once daily. 90 tablet 1 03/16/2017 4 Discontinued(Pha rmacist change per medication history (E-cancel not sent)) metFORMIN (GLUCOPHAGE) 500 mg tabletIndication s:Controlled type 2 diabetes mellitus without complication, with long-term current use of insulin (HC) Take 1 tablet by mouth 2 times daily with meals. For Diabetes. 180 tablet 1 03/16/2017 4 Discontinued(Pha rmacist change per medication history (E-cancel not sent)) atorvastatin (LIPITOR) 20 mg tabletIndication s:Hypercholester olemia Take 1 tablet by mouth once daily. For Cholesterol. 90 tablet 1 03/16/2017 4 Discontinued(Pha rmacist change per medication history (E-cancel not sent)) ascorbic acid, vitamin C, (VITAMIN C) 1,000 mg tablet Take 1 tablet by mouth once daily. 0 03/16/2017 4 Discontinued(Pha rmacist change per medication history (E-cancel not sent)) coenzyme q10 (CO Q-10) 100 mg cap Take 1 capsule by mouth 2 times daily. 0 03/16/2017 4 Discontinued(Pha rmacist change per medication history (E-cancel not sent)) atorvastatin (LIPITOR) 10 mg tablet Take 10 mg by mouth once daily in the evening. 4 Discontinued(*IP Discontinued) atorvastatin (LIPITOR) 40 mg tabletIndication s:Hypercholester olemia Take 1 Tablet (40 mg) by mouth once daily in the evening. 30 Tablet 02/20/2024 4 Discontinued isosorbide mononitrate (IMDUR) 30 mg extended release tablet 24 HourIndications: Heart disease Take 1 Tablet (30 mg) by mouth once daily. 30 Tablet 02/21/2024 4 Discontinued nitroglycerin (NITROSTAT) 0.4 mg sublingual tabletIndication s:Chest pain, unspecified type Place 1 Tablet (0.4 mg) under the tongue every 5 minutes if needed for Chest pain 1st choice (Hold for SBP less than 90 mmHg.). Up to 3 tablets in 15 minutes. 30 Tablet 02/20/2024 4 Discontinued clopidogreL (PLAVIX) 75 mg tabletIndication s:Heart disease Take 1 Tablet (75 mg) by mouth once daily. 30 Tablet 02/20/2024 4 Discontinued clopidogreL (PLAVIX) 75 mg tabletIndication s:Heart disease Take 1 Tablet (75 mg) by mouth once daily. 30 Tablet 02/20/2024 4 Discontinued(*IP Discontinued) Active Problems Problem Noted Date Diagnosed Date History of repair of hiatal hernia 02/20/2024 Hypokalemia 02/19/2024 Hypophosphatemia 02/19/2024 Intermittent right-sided chest pain 02/19/2024 Elevated troponin 02/19/2024 Elevated liver enzymes 03/17/2017 Overview (03/17/2017): March 2017: ALT 57. Controlled type 2 diabetes m priscilla without complication, with long-term current use of insulin 03/16/2017 Overview (03/16/2017): Diagnosis 2003 approximately. Insomnia, idiopathic 03/16/2017 Overview (03/16/2017): Taking ambien from [place] as of March 2017: Chronic hip pain, left 03/16/2017 Overview (05/27/2017): Taking Tramadol (Ultram) from [place] as of March 2017: May 2017: Fluoroscopic guided left hip joint injection by Dr. Camara. Hypertension Hypercholesterolemia Heart disease Overview (04/28/2017): 2001 2 Coronary stents. April 2017: Consult with Dr. Wilson, made hypertension med adjustment suggestions if BP not improved. Encounters Date Type Department Care Team Description 02/19/2024 3:50 PM POLICE MANAGER - 02/20/2024 3:09 PM POLICE MANAGER Hospital Encounter [facility] [address] [place] [address] [facility], [facility], [place] [facility] Naye Castorena MD Zafari, Maliha, MD Intermittent right-sided chest pain (Primary Dx); Hypercholesterolemi a; Heart disease; Chest pain, unspecified type; Elevated troponin Discharge Disposition: Home Self Care 02/19/2024 Travel 02/19/2024 Telephone [employer] [facility] [address] [facility] [address] [place] [phone] Russ Babin MD Chest Pain from Last 3 Months Immunizations Name Administration Dates Next Due Influenza, IIV3 (Age >=3 years) 12/31/2016,01/18,01/30/2003 Pneumococcal Poly,23-Valent (Pneumovax) 01/31/20 03 Family History Medical History Relation Name Comments Cancer Father Unknown primary , maybe lung Heart Disease Mother Relation Name Status Comments Father Mother Social History Tobacco Use Types Packs/Day Years Used Date Smoking Tobacco: Former Cigarettes Q uit: 12/10/2000 Smokeless Tobacco: Never Tobacco Cessation:Counseling Given: Not Answered Comments:2 packs per day smoker prior to heart attack 12/10/2000. Alcohol Use Standard Drinks/Week Comments No 0 (1 standard drink = 0.6 oz pur e alcohol) Social Connections Answer Date Recorded Do you often feel lonely or isolated from those around you? 0 02/19/2024 Financial Resource Strain Answer Date R ecorded Difficulty of Paying Living Expenses 3 02/19/2024 Difficulty of Paying Living Expenses Not on file 02/19/2024 Food Insecurity Answer Date Recorded Do you worry your food will run out before you are able to buy more? 1 02/19/2024 Transportation Needs Answer Date Record ed Does lack of transportation keep you from medica l appointments? 1 02/19/2024 Does lack of transportation keep you from work, meetings or getting things that you need? 1 02/19/2024 Housing Stability Answer Date Recorded What is your housing situation today? 1 02/19/2024 Sex and Gender Information Value Date Recorded Sex Assigned at Not on file Gender Identity Not on file Sexual Orientation Not on file Obstetrics History Last Filed Vital Signs Vital Sign Reading Time Taken Comments Blood Pressure 103/69 02/20/2024 1:00 PM POLICE MANAGER Pulse 78 02/20/2024 1:00 PM POLICE MANAGER Temperature 36.9 C (98.5 F) 02/20/2024 11:34 AM POLICE MANAGER Respiratory Rate 16 02/20/2024 7:53 AM POLICE MANAGER Oxygen Saturation 93% 02/20/2024 11: 34 AM POLICE MANAGER Inhaled Oxygen Concentration - - Weight 76.2 kg (167 lb 15.9 oz) 02/20/2024 4:55 AM POLICE MANAGER Height 165.1 cm (5' 5) 02/19/2024 4:00 PM POLICE MANAGER Body Mass Index 27.96 02/19/2024 4:00 PM POLICE MANAGER Plan of Treatment Health Maintenance Due Date Last Done Comments Tdap 01/03/1967 Hepatitis C screening for age 18-79 01/03/1974 Tetanus booster 1976 Colonoscopy through age 75 01/03/2001 Pneumococcal series for age 65+ (2 of 2 - PCV) 01/31/2004 01/30/2003 Zoster (shingles) series for age 50+ (1 of 2) 01/03/2006 BMI (ht and wt on same day) for age 18+ 03/16/2018 03/16/2017 Depression screening for age 12+ 03/16/2018 03/16/20 17 AAA screening age 65-74 01/03/2021 COVID-19 vaccine series ( season) 2023 Influenza for age 65+ 12/06/2023 12/31/2016 , 01/19/2004, 01/30/2003 Lipids for age 45-75 02/19/2029 02/20/2024, 03/16/20 17 Procedures Procedure Name Priority Date/Time Associated Diagnosis Comments EKG 12 LEAD Routine 02/20/2024 11:30 AM POLICE MANAGER SCAN-CARDIAC STRIP 02/20/2024 7: 35 AM POLICE MANAGER TROPONIN T (HS) ONE TIME RESHMA 02/20/2024 7:19 AM POLICE MANAGER APTT Timed 02/20/2024 7:19 AM POLICE MANAGER PHOSPHORUS Early AM 02/20/2024 7:19 AM POLICE MANAGER MAGNESIUM Early AM 02/20/2024 7:19 AM POLICE MANAGER CREATININE Early AM 02/20/2024 7:19 AM POLICE MANAGER ELECTROLYTE PANEL Early AM 02/20/2024 7:1 9 AM POLICE MANAGER HEMOGLOBIN A1C Early AM 02/20/2024 7:19 AM POLICE MANAGER LIPID PANEL Early AM 02/20/2024 7:19 AM POLICE MANAGER HEMOGLOBIN Early AM 02/20/2024 7:19 AM POLICE MANAGER PLATELET COUNT Early AM 02/20/2024 7:19 AM POLICE MANAGER SCAN-CARDIAC STRIP 02/20/2024 2: 09 AM POLICE MANAGER SCAN-CARDIAC STRIP 02/20/2024 12 :49 AM POLICE MANAGER PROCALCITONIN Today 02/19/2024 11:19 PM POLICE MANAGER APTT Timed 02/19/2024 11:19 PM POLICE MANAGER URINALYSIS MICROSCOPIC Timed 8:33 PM POLICE MANAGER UA W/ SEDIMENT EXAM REFLEXED PER CRITERIA Today 02/19/2024 8:33 PM POLICE MANAGER SCAN-CARDIAC STRIP 02/19/2024 7: 24 PM POLICE MANAGER SCAN-CARDIAC STRIP 02/19/2024 4: 56 PM POLICE MANAGER C-REACTIVE PROTEIN RESHMA 02/19/2024 4: 43 PM POLICE MANAGER TROPONIN T (HS) ONE TIME RESHMA 02/19/2024 4:43 PM POLICE MANAGER PHOSPHORUS Today 02/19/2024 4:43 PM POLICE MANAGER POTASSIUM Today 02/19/2024 4:43 PM POLICE MANAGER CREATININE Today 02/19/2024 4:43 PM POLICE MANAGER MAGNESIUM Timed 02/19/2024 4:43 PM POLICE MANAGER APTT Today 02/19/2024 4:43 PM POLICE MANAGER from Last 3 Months Results * EKG 12 LEAD (02/20/2024 11:30 AM POLICE MANAGER) Interpretation Normal sinus rhythm Nonspecific T wave abnormality Abnormal ECG No previous ECGs available BEYOND NOW Ventricular Rate 64 BPM BEYOND NOW Atrial Rate 64 BPM BEYOND NOW P-R Interval 162 ms BEYOND NOW QRS Duration 68 ms BEYOND NOW QT 384 ms BEYOND NOW QTc 396 ms BEYOND NOW P [place] 19 degrees BEYOND NOW R [place] 45 degrees BEYOND NOW T [place] 79 degrees BEYOND NOW 02/20/2024 11:3 0 AM POLICE MANAGER 02/21/2024 6:51 PM POLICE MANAGER Steph Ward MD EKG ORD BEYOND NOW [place], [place] * SCAN-CARDIAC STRIP (02/20/2024 7:35 AM POLICE MANAGER) Scanner OTHER * (ABNORMAL) TROPONIN T (HS) ONE TIME (02/20/2024 7:19 AM POLICE MANAGER) Only the most recent of2 resultswithin the time period is included. [facility] TROPONIN T HS 273(H) 6-15 ng/L ng/L 02/20/2024 1:24 PM POLICE MANAGER [facility] Blood BLOOD SPECIMEN / Unknown Venipuncture / Unknown 02/20/2024 7:19 AM POLICE MANAGER 02/20/2024 7:25 AM [facility] 02/20/2024 1:24 PM POLICE MANAGER hs-cTnT (Elecsys Troponin T Gen 5) concentration (s) above the sex-specific 99th percentile (16 ng/L or greater for males or 11 ng/L or greater for females) are indicative of myocardial injury. If initial hs-cTnT <=100 ng/L at presentation, a 0h/2h ABSOLUTE (ng/L) delta change (rising or falling) of >=10 ng/L suggests a significant change, whereas a 0h/2h delta change <=3 ng/L suggests no significant change. If initial hs-cTnT >100 ng/L at presentation, a 0h/2h/ RELATIVE (percent, %) delta change of 20% is suggested to distinguish patients with acute vs. chronic myocardial injury. There are multiple etiologies that can cause hs-cTnT increases above the 99th percentile (myocardial injury) other than acute myocardial infarction. Clinical context and careful clinical evaluation are critical for diagnosis and risk-stratification. The diagnosis of acute myocardial infarction requires a rising and/or falling pattern in hs-cTnT concentrations with at least one value above the sex-specific 99th percentile PLUS at least one of the following clinical criteria: ischemic symptoms, new or presumed new significant ST-T wave changes or new LBBB, development of pathological Q waves, imaging evidence of new loss of viable myocardium or new regional wall motion abnormality, or identification of intracoronary atherothrombosis or an acute angiographic culprit on coronary angiography. In appropriate low-risk patients with a non-ischemic electrocardiogram without active chest pain with a symptom onset >3-hours without recurrence, a single initial hs-cTnT<6 ng/L identifies patient with a very low risk in emergency department patient population. Steph Ward MD CHEMISTRY Performing Organization Address City/[facility]/ZIP Co de Phone Number [facility] [address] * Screening hemoglobin A1c FOR ADD ON (02/20/2024 7:19 AM POLICE MANAGER) HEMOGLOBIN A1C SCREENING 6.0 <=6.4 % 02/20/2024 4:54 PM POLICE MANAGER [facility] Blood BLOOD SPECIMEN / Unknown Venipuncture / Unknown 02/20/2024 7:19 AM POLICE MANAGER 02/20/2024 7:25 AM POLICE MANAGER Narrative [facility] - 02/20/2024 4:54 PM POLICE MANAGER (<5.7%) Normal (5.7% to 6.4%) Indicates prediabetes (>=6.5%) Confirms diabetes Falsely low levels may be seen with: Recent Transfusion, Recent Significant Blood Loss, Hemolytic Diseases, or Falsely elevated levels may be seen with: Untreated Anemias, Splenectomy Naye Castorena MD CHEMISTRY Performing Organization Address [facility] Co de Phone Number [facility] [address] * PLATELET COUNT (02/20/2024 7:19 AM POLICE MANAGER) Pathologist [facility] PLATELET COUNT 401 140 - 440 thou/cu mm 02/20/2024 7:47 AM POLICE MANAGER [facility] MPV 8.6 6.5 - 11.0 fL 02/20/2024 7:47 AM POLICE MANAGER [facility] Blood BLOOD SPECIMEN / Unknown Venipuncture / Unknown 02/20/2024 7:19 AM POLICE MANAGER 02/20/2024 7:25 AM POLICE MANAGER Narrative [facility] - 02/20/2024 7:47 AM POLICE MANAGER Every morning while on IV heparin. Necessary every morning while on IV heparin. Naye Castorena MD HEMATOLOGY [facility] [address] [address], [place] * HEMOGLOBIN (02/20/2024 7:19 AM POLICE MANAGER) HEMOGLOBIN 13.8 13.5 - 17.5 g/dL 02/20/2024 7:47 AM POLICE MANAGER [facility] MCV 97 80 - 100 fL 02/20/2024 7:47 AM POLICE MANAGER [facility] Blood BLOOD SPECIMEN / Unknown Venipuncture / Unknown 02/20/2024 7:19 AM POLICE MANAGER 02/20/2024 7:25 AM POLICE MANAGER Narrative [facility] - 02/20/2024 7:47 AM POLICE MANAGER Every morning while on IV heparin. Necessary every morning while on IV heparin. Naye Castorena MD HEMATOLOGY Performing Organization Address [facility] de Phone Number [facility] [address] [place] [address], [place] * Creatinine AM (02/20/2024 7:19 AM POLICE MANAGER) Only the most recent of2 resultswithin the time period is included. Pathologist [facility] eGFR >90 >90 mL/min/1.7 3m2 02/20/2024 7:57 AM POLICE MANAGER [facility] Comment:As of 2021, eG FR is calculated by the CKD-EPI creatinine equation without race adjustment. eGFR can be influenced by muscle mass, exercise, and diet. The reported eGFR is an estimation only and is only applicable if the renal function is stable. CREATININE 0.88 0.70 - 1.20 mg/dL 02/20/2024 7:57 AM POLICE MANAGER [facility] Blood BLOOD SPECIMEN / Unknown Venipuncture / Unknown 02/20/2024 7:19 AM POLICE MANAGER 02/20/2024 7:25 AM POLICE MANAGER Naye Castorena MD CHEMISTRY Performing Organization Address [facility] Co de Phone Number [facility] [address] [place] [address], [place] * (ABNORMAL) APTT (02/20/2024 7:19 AM POLICE MANAGER) Only the most recent of3 resultswithin the time period is included. APTT 68(H) 25 - 36 sec 02/20/2024 7:44 AM POLICE MANAGER [facility] Blood BLOOD SPECIMEN / Unknown Venipuncture / Unknown 02/20/2024 7:19 AM POLICE MANAGER 02/20/2024 7:25 AM POLICE MANAGER Narrative [facility] - 02/20/2024 7:44 AM POLICE MANAGER Therapeutic Range: 59-89 seconds Nichole Victoria RN HEMATOLOGY Performing Organization Address [facility] Co nv Phone Number [facility] [address] [place] [address], * PHOSPHORUS (02/20/2024 7:19 AM POLICE MANAGER) Only the most recent of2 resultswithin the time period is included. PHOSPHORUS 2.6 2.5 - 4.5 mg/dL 02/20/2024 7:57 AM POLICE MANAGER [facility] Blood BLOOD SPECIMEN / Unknown Venipuncture / Unknown 02/20/2024 7:19 AM POLICE MANAGER 02/20/2024 7:25 AM POLICE MANAGER Jazmyne Osei RN CHEMISTRY Performing Organization Address [facility] Phone Number [facility] [address] [place] [address], * MAGNESIUM (02/20/2024 7:19 AM POLICE MANAGER) Only the most recent of2 resultswithin the time period is included. MAGNESIUM 2.0 1.6 - 2.4 mg/dL 02/20/2024 7:57 AM POLICE MANAGER [facility] Blood BLOOD SPECIMEN / Unknown Venipuncture / Unknown 02/20/2024 7:19 AM POLICE MANAGER 02/20/2024 7:25 AM POLICE MANAGER Naye Castorena MD CHEMISTRY [facility] [address] [place] [address], [place] * (ABNORMAL) LIPID PANEL (02/20/2024 7:19 AM POLICE MANAGER) CHOLESTEROL,TOTAL 121 100 - 199 mg/dL 02/20/2024 7:57 AM POLICE MANAGER [facility] Comment: Cholesterol, Total Reference Ranges Desirable <200 mg/dL Borderline 200-239 mg/dL High >=240 mg/dL TRIGLYCERIDES 110 <150 mg/dL 02/20/2024 7:57 AM POLICE MANAGER [facility] HDL CHOLESTEROL 36(L) >40 mg/dL 7:57 AM POLICE MANAGER [facility] NON-HDL CHOLESTEROL 85 <145 mg/dl 02/20/2024 7:57 AM POLICE MANAGER [facility] CHOL/HDL RATIO 3.36 <4.50 02/20/2024 7:57 AM POLICE MANAGER [facility] LDL CHOLESTEROL 63 <=130 mg/dL 02/20/2024 7:57 AM POLICE MANAGER [facility] VLDL CHOLESTEROL 22 <=30 mg/dL 02/20/2024 7:57 AM POLICE MANAGER [facility] PROVIDER ORDERED STATUS RANDOM 02/20/2024 7:57 AM [facility] Blood BLOOD SPECIMEN / Unknown Venipuncture / Unknown 02/20/2024 7:19 AM POLICE MANAGER 02/20/2024 7:25 AM [facility] Naye Castorena MD CHEMISTRY [facility] [address] [place] [id number], [place] * Electrolyte panel AM (02/20/2024 7:19 AM POLICE MANAGER) SODIUM 142 136 - 145 mmol/L 02/20/2024 7:57 AM POLICE MANAGER [facility] POTASSIUM 4.1 3.5 - 5.1 mmol/L 02/20/2024 7:57 AM POLICE MANAGER [facility] CHLORIDE 104 98 - 107 mmol/L 02/20/2024 7:57 AM POLICE MANAGER [facility] CO2,TOTAL 25 22 - 29 mmol/L 02/20/2024 7:57 AM POLICE MANAGER [facility] ANION GAP 13 5 - 18 02/20/2024 7:57 AM POLICE MANAGER [facility] Blood BLOOD SPECIMEN / Unknown Venipuncture / Unknown 02/20/2024 7:19 AM POLICE MANAGER 02/20/2024 7:25 AM POLICE MANAGER Naye Castorena MD CHEMISTRY [facility] [address] [place] [address], * SCAN-CARDIAC STRIP (02/20/2024 2:09 AM POLICE MANAGER) Scanner OTHER * SCAN-CARDIAC STRIP (02/20/2024 12:49 AM POLICE MANAGER) Scanner OTHER * PROCALCITONIN (02/19/2024 11:19 PM POLICE MANAGER) PROCALCITONIN 0.03 ng/ml 02/20/2024 12:12 AM POLICE MANAGER [facility] Blood BLOOD SPECIMEN / Unknown Venipuncture / Unknown 02/19/2024 11:19 PM POLICE MANAGER 02/19/2024 11:29 PM POLICE MANAGER Narrative [facility] - 02/20/2024 12:12 AM POLICE MANAGER Procalcitonin for initial assessment of Lower Respiratory Tract Infection: Results Interpretation <0.10 ng/mL Antibiotic therapy strongly discoraged. Indicates absent of bacterial infection. * 0.10 - 0.25 ng/mL Antibiotic therapy discouraged. Bacterial infection unlikely. * 0.26 - 0.50 ng/mL Antibiotic therapy encouraged. Bacterial infection possible. >0.50 ng/mL Antibiotic therapy strongly encouraged. Suggestive of presence of bacterial infection. *Antibiotic therapy should be considered regardless of PCT result if the patient is clinically unstable, is at high risk for adverse outcome, has strong evidence of bacterial pathogen, or the clinical context indicates antibiotic therapy is warranted. If antibiotics are withheld, reassess if symptoms persist/worsen and/or repeat PCT measurement within 6-24 hours. In order to assess treatment success and to support a decision to discontinue antibiotic therapy, follow up samples should be tested once every 1-2 days, based upon physician discretion taking into account patient's evolution and progress. Procalcitonin for initial assessment of severe sepsis risk: Results Interpretation <0.5 ng/ml A PCT level below 0.5 ng/ml on the first day of ICU admission is associated with a low risk for progression to severe sepsis and/or septic shock. > 2.0 ng/mL A PCT level above 2.0 ng/mL on the first day of ICU admission is associated with a high risk for progression to severe sepsis and/or septic shock. Note: Concentrations < 0.5 ng/mL do not exclude an infection, on account of localized infections (without systemic signs) which can be associated with such low concentrations, or a systemic infection in its initial stages(< 6 hours). Furthermore, increased procalcitonin can occur without infection. PCT concentrations between 0.5 and 2.0 ng/mL should be interpreted taking into account the patient's history. It is recommended to retest PCT within 6-24 hours if any concentrations < 2 ng/mL are obtained. Naye Castorena MD SEND OUTS [facility] [address] [place] [address], * (ABNORMAL) URINALYSIS MICROSCOPIC (02/19/2024 8:33 PM POLICE MANAGER) RBC 0-2 0-2, None Seen /HPF 02/19/2024 9:00 PM POLICE MANAGER [facility] WBC 11-25(A) 0-2, 3-5, None Seen /HPF 02/19/2024 9:00 PM POLICE MANAGER [facility] BACTERIA None Seen None Seen, Rare, Few Bacteria/ HPF 02/19/2024 9:00 PM POLICE MANAGER [facility] EPITHELIAL CELLS None Seen None Seen, Few Epi/HPF 02/19/2024 9:00 PM POLICE MANAGER [facility] HYALINE CASTS 0-2 0-2, 3-5 /LPF 02/19/2024 9:00 PM POLICE MANAGER [facility] Urine URINE SPECIMEN / Unknown Non-Blood / Unknown 02/19/2024 8:33 PM POLICE MANAGER 02/19/2024 8:45 PM POLICE MANAGER Naye Castorena MD URINE [facility] [address] [place] [address], [place] * (ABNORMAL) Urinalysis TODAY (02/19/2024 8:33 PM POLICE MANAGER) COLOR Yellow Yellow Color 02/19/2024 9:00 PM POLICE MANAGER [facility] CLARITY Cloudy(A) Clear Clarity 02/19/2024 9:00 PM POLICE MANAGER [facility] SPECIFIC GRAVITY,URINE 1.015 1.010, 1.015, 1.020, 1.025 02/19/2024 9:00 PM POLICE MANAGER [facility] PH,URINE 7.0 6.0, 7.0, 8.0, 5.5, 6.5, 7.5, 8.5 02/19/2024 9:00 PM POLICE MANAGER [facility] UROBILINOGEN, QUALITATIVE Normal Normal EU/dl 02/19/2024 9:00 PM POLICE MANAGER [facility] PROTEIN, URINE Negative Negative mg/dL 02/19/2024 9:00 PM POLICE MANAGER [facility] GLUCOSE, URINE Negative Negative mg/dL 02/19/2024 9:00 PM POLICE MANAGER [facility] KETONES,URINE Negative Negative mg/dL 02/19/2024 9:00 PM POLICE MANAGER [facility] BILIRUBIN,URI NE Negative Negative 02/19/2024 9:00 PM POLICE MANAGER [facility] OCCULT BLOOD,URINE Negative Negative 02/19/2024 9:00 PM POLICE MANAGER [facility] NITRITE Negative Negative 02/19/2024 9:00 PM POLICE MANAGER [facility] LEUKOCYTE ESTERASE Small(A) Negative 02/19/2024 9:00 PM POLICE MANAGER [facility] Urine URINE SPECIMEN / Unknown Non-Blood / Unknown 02/19/2024 8:33 PM POLICE MANAGER 02/19/2024 8:45 PM POLICE MANAGER Naye Castorena MD URINE Performing Organization Address [facility] Co de Phone Number [facility] [address] * SCAN-CARDIAC STRIP (02/19/2024 7:24 PM POLICE MANAGER) Scanner OTHER * SCAN-CARDIAC STRIP (02/19/2024 4:56 PM POLICE MANAGER) Scanner OTHER * POTASSIUM (02/19/2024 4:43 PM POLICE MANAGER) POTASSIUM 3.6 3.5 - 5.1 mmol/L 02/19/2024 5:26 PM POLICE MANAGER [facility] Blood BLOOD SPECIMEN / Unknown Venipuncture / Unknown 02/19/2024 4:43 PM POLICE MANAGER 02/19/2024 4:54 PM POLICE MANAGER Naye Castorena MD CHEMISTRY Performing Organization Address [facility] de Phone Number [facility] [address] * C-REACTIVE PROTEIN (02/19/2024 4:43 PM POLICE MANAGER) C-REACTIVE PROTEIN <0.3 <0.5 mg/dL 02/19/2024 6:09 PM POLICE MANAGER [facility] Blood BLOOD SPECIMEN / Unknown Venipuncture / Unknown 02/19/2024 4:43 PM POLICE MANAGER 02/19/2024 4:54 PM POLICE MANAGER Naye Castorena MD CHEMISTRY Performing Organization Address City/[facility]/ZIP Co de Phone Number [facility] [address] [place] [address], from Last 3 Months Advance Directives * Full Code (Latest Code Status on File) Date Activated Date Inactivated Comments 02/19/2024 4:13 PM 02/20/2024 5:14 PM Question Answer Comments Code Status Discussion: Unable to Assess Preferences, Provider to review later Care Teams Tool Or Die Drawing Checker Relationship Specialty Start Date End Date Sunni Brewer MD [address] [place] [address] PCP - General 02/19/24
== END 2024-02-18 09:06 | disposition home or self-care (01) ==
LOC: NFLDREF 02-22 15:28
PROVIDERS: PCP Family Medicine; Referring Provider Family Medicine; Visit Provider Family Medicine
DX: R07.9 Chest pain, unspecified (principal); E78.1 Pure hyperglyceridemia; I10 Essential (primary) hypertension; E11.65 Type 2 diabetes mellitus with hyperglycemia
CPT/HCPCS: 80053; 80061; 82043; 82570; 84484

== ENCOUNTER 2025-02-23 09:41 | Outpatient (CLI) | payer MEDICARE, SELFPAY | END 2025-02-23 09:42 | disposition home or self-care (01) | LOC: NFLDREF 03-01 02:04 | PROVIDERS: PCP Family Medicine; Referring Provider Family Medicine; Visit Provider Family Medicine | DX: E11.65 Type 2 diabetes mellitus with hyperglycemia (principal); E78.1 Pure hyperglyceridemia; I10 Essential (primary) hypertension; Z12.5 Encounter for screening for malignant neoplasm of prostate | CPT/HCPCS: 80053; 80061; 82043; 82570; G0103 ==